=== PATIENT | female | born 1940 | race Caucasian/White ===

== ENCOUNTER → 2017-02-22 | Day surgery (SDC) | payer OTHER ==
[2017-02-14 13:57] VITALS: Ht 166.4 cm; Wt 100.9 kg
[~2017-02-22] VITALS: Ht 166.4 cm; Wt 100.9 kg
[~2017-02-22] MED LIST: ASCO10003 PO; ATOR-24 PO; BENA10TA10 PO; CYAN100020 PO; ENOX40IN SQ; HYDR25TA4 PO; LIDOCAINE HCL 2% 2 ML VIAL (20MG/ML) ONE; METO1TAB69 PO; OXYC-57 PO; PROPOFOL IV EMULSION 10 MG/ML 20 ML VIAL IV ONE; SERT100T PO; SODIUM CHLORIDE 0.9% 500ML 500 ML IV ONE; TRAZ100T29 PO; VITAMIN D PO
--- NOTE | 2017-02-22 13:09 | Endo History and Physical ---
History & Physical Date of Service: Feb 22, 2017. Chief Complaint: Referring Physician: Dr. Jessika Gifford History of Present Illness 77 yo presenting for colonscopy due to history of newly diagnosed endometrial cancer-pretreatment examination Past Surgical History Hx Cardiac Surgery: No Hx Internal Defibrillator: No Hx Pacemaker: No Hx Abdominal Surgery: Yes (SERA) Hx of Implantable Prosthesis: No Hx Post-Op Nausea and Vomiting: No Hx Cancer Surgery: No Hx Thoracic Surgery: No Hx Orthopedic: Yes (RT TKA) Hx Urinary Tract Surgery: No Family History Colon CA Social History Smoking Status: Never Smoker Hx Substance Use: No Hx Alcohol Use: No Allergies Coded Allergies: No Known Allergies (Verified , 02/14/17) Current Medications Reported Home Medications Medications Dose Route/Sig Max Daily Dose Days Date Category Dose Instructions [Vitamin D] 1 Tab PO QAM 02/14/17 Reported Vitamin B12 (Cyanocobalamin) 1,000 Mcg Tab 1 Tab PO QAM 02/14/17 Reported Vitamin C (Ascorbic Acid) 1,000 Mg Tab 1 Tab PO QAM 02/14/17 Reported Trazodone (Trazodone HCl) 100 Mg Tab 100 Mg PO HS 02/14/17 Reported Lotensin (Benazepril HCl) 10 Mg Tab 10 Mg PO QAM 02/14/17 Reported Hctz (Hydrochlorothiazide) 25 Mg Tab 25 Mg PO QAM 02/14/17 Reported Lipitor (Atorvastatin Calcium) 40 Mg Tab 40 Mg PO QAM 02/14/17 Reported Zoloft (Sertraline Hcl) 100 Mg Tab 150 Mg PO QAM 02/14/17 Reported Toprol-Xl (Metoprolol Succinate) 100 Mg Tabcr 100 Mg PO QAM 02/14/17 Reported Percocet 5MG/325MG (Oxycodone/Acetaminophen) Tab 1 Tablet PO Q6HR PRN 03/06/10 Reported NEEDED FOR PAIN. NO MORE THAN 3 TABLETS A DAY. Vital Signs Weight (Kilograms): 100.91 Height (Feet): 5 Height (Inches): 5.5 Date Time Temp Pulse Resp B/P (MAP) Pulse Ox O2 Delivery O2 Flow Rate FiO2 02/22/17 12:59 36.6 96 18 173/86 (115) 98 Room Air Physical Exam General Appearance: WD/WN, no apparent distress Respiratory/Chest: Respiratory effort: no dyspnea Auscultation: breath sounds normal Cardiovascular: Heart Auscultation: RRR, normal S1 Abdomen: Bowel Sounds: normal Inspection & Palpation: soft Assessment and Plan 77 yo presenting for colonoscopy prior to treatment of endometrial cancer
--- NOTE | 2017-02-22 13:50 | GI REPORT ---
Procedure Date: 02/22/2017 1:17 PM Procedure: Colonoscopy Indications: Screening for colorectal malignant neoplasm, and new diagnosis of endometrial cancer Medicines: General Anesthesia Complications: No immediate complications. Estimated blood loss: None. Estimated Blood Loss: Estimated blood loss: none. Procedure: Pre-Anesthesia Assessment: - Pre-Anesthesia Assessment: - Prior to the procedure, a History and Physical was performed, and patient medications, allergies and sensitivities were reviewed. The patient's tolerance of previous anesthesia was reviewed. Please see [email or web address] for complete details. - The risks and benefits of the procedure and the sedation options and risks were discussed with the patient. All questions were answered and informed consent was obtained. - Patient identification and proposed procedure were verified prior to the procedure by the physician and the nurse. The procedure was verified in the pre-procedure area in the procedure room. After obtaining informed consent, the endoscope was passed carefully and meticuously under direct vision and only advanced when the lumen was clearly identified, C02 insuflation was utilized throughout the entirity of the procedure. Throughout the procedure, the patient's blood pressure, pulse, and oxygen saturations were monitored continuously. After I obtained informed consent, the scope was passed under direct vision. Throughout the procedure, the patient's blood pressure, pulse, and oxygen saturations were monitored continuously. The scope was introduced through the anus and advanced to the terminal ileum, with identification of the appendiceal orifice and IC valve. The colonoscopy was performed without difficulty. The patient tolerated the procedure well. Findings: Three sessile polyps were found in the ascending colon. The polyps were 3 to 5 mm in size. These polyps were removed with a cold snare. Resection and retrieval were complete. A 3 mm polyp was found in the transverse colon. The polyp was sessile. The polyp was removed with a cold snare. Resection and retrieval were complete. Multiple small-mouthed diverticula were found in the sigmoid colon. The terminal ileum appeared normal. Internal hemorrhoids were found during retroflexion. The exam was otherwise without abnormality on direct and retroflexion views. Impression: - Three 3 to 5 mm polyps in the ascending colon, removed with a cold snare. Resected and retrieved. - One 3 mm polyp in the transverse colon, removed with a cold snare. Resected and retrieved. - Diverticulosis in the sigmoid colon. - The examined portion of the ileum was normal. - Internal hemorrhoids. - The examination was otherwise normal on direct and retroflexion views. Recommendation: - Discharge patient to home (with escort). - Repeat colonoscopy for surveillance based on pathology results. - Return to referring physician as previously scheduled. Bang Martines MD 02/22/2017 1:49:39 PM This report has been signed electronically. Note Initiated On: 02/22/2017 1:17 PM I attest to the content of the Intraoperative Record and orders documented therein, exceptions below
--- NOTE | 2017-02-22 13:55 | Discharge Instructions ---
Endoscopy Patient Instructions Date / Procedure(s) Performed Feb 22, 2017. Colonoscopy Allergy Information Coded Allergies: No Known Allergies (Verified , 02/14/17) Discharge Date / Findings Feb 22, 2017. Findings: - Three 3 to 5 mm polyps in the ascending colon, removed with a cold snare. Resected and retrieved. - One 3 mm polyp in the transverse colon, removed with a cold snare. Resected and retrieved. - Diverticulosis in the sigmoid colon. - The examined portion of the ileum was normal. - Internal hemorrhoids. - The examination was otherwise normal on direct and retroflexion views. Recommendation: - Discharge patient to home (with escort). - Repeat colonoscopy for surveillance based on pathology results. - Return to referring physician as previously scheduled Medication Instructions Stopped Medication(s): stopped all vitamins last Monday Provider Instructions Activity Restrictions - No exercising or heavy lifting for 24 hours. - Do not drink alcohol the day of the procedure. - Do not drive a car or operate machinery until the day after the procedure. - Do not make any important decisions or sign important papers in 24 hours after the procedure. Following Day: - Return to full activity which may include returning to work/school. Diet Start your diet with liquids and light foods (jello, soup, juice, toast). Then eat your usual diet if not nauseated. Treatment For Common After Affects For mild abdominal pain, bloating, or excessive gas: - Rest - Eat lightly - Lie on right side Follow-Up Information Follow-up with Dr. Jessika Gifford as scheduled Anesthesia Information What You Should Know You have had a procedure that required some medicine to reduce anxiety and discomfort. This treatment is called moderate sedation. After receiving the treatment, you may be sleepy, but you will be able to breathe on your own. The effects of the treatment may last for several hours. Follow these instructions along with Activity/Diet recommendations noted above: * Do NOT do anything where dizziness or clumsiness would be dangerous. * Rest quietly at home today, then you can be up and about tomorrow. * Have a responsible person stay with you the rest of today. * You may have had an I.V. today. If so, you may take the dressing off later today. Recommendations Call your doctor if: * Trouble breathing * Continuous vomiting for more than 24 hours * Temperature above 101 degrees * Severe abdominal pain or bloating * Pain not relieved by pain medicine ordered * There is increased drainage or redness from any incision * A large amount of rectal bleeding greater than 2-3 tablespoons. (If you had a polyp/s removed or have hemorrhoids, a small amount of blood - from the rectum is to be expected.) * You have any unanswered questions or concerns. IN THE EVENT OF A SERIOUS EMERGENCY, GO TO THE NEAREST EMERGENCY ROOM Your discharge instructions were prepared by provider Bang Martines. Patient Instructions Signature Page Alyce Myers Patient (or Guardian) Signature/Date: I have read and understand the instructions given to me by my caregivers. Caregiver/RN/Doctor Signature/Date: The above-named patient and/or guardian has received patient instructions on this date. + Original Patient Signature Page (only) stays with chart. Please make copy for patient.
[2017-02-22 14:00] VITALS: BP 122/74; PULSE 68; O2SAT 93
--- NOTE | 2017-02-22 14:10 | Anesthesiology Progress Note ---
Anesthesia Post Op Note Date & Time Feb 22, 2017 at 14:10 Vital Signs Pain Intensity: 0 Vital Signs Past 12 Hours Date Time Temp Pulse Resp B/P (MAP) Pulse Ox O2 Delivery O2 Flow Rate FiO2 02/22/17 14:00 68 16 122/74 (90) 93 Room Air 02/22/17 13:45 71 16 122/63 (82) 93 Room Air 02/22/17 12:59 36.6 96 18 173/86 (115) 98 Room Air Notes Mental Status: alert / awake / arousable, participated in evaluation Pt Amnestic to Procedure: Yes Nausea / Vomiting: adequately controlled Pain: adequately controlled Airway Patency, RR, SpO2: stable & adequate BP & HR: stable & adequate Hydration State: stable & adequate Anesthetic Complications: no major complications apparent
== END | disposition home or self-care (01) ==
LOC: C.GI 12:31
PROVIDERS: ATTEND Internal Medicine
DX: Z12.11 Encounter for screening for malignant neoplasm of colon (principal); D12.2 Benign neoplasm of ascending colon; D12.3 Benign neoplasm of transverse colon; K57.30 Diverticulosis of large intestine without perforation or abscess without bleeding; K64.8 Other hemorrhoids; C54.1 Malignant neoplasm of endometrium

== ENCOUNTER → 2017-08-03 | Outpatient (CLI) | payer OTHER ==
[~2017-08-03] MED LIST changes: -ENOX40IN SQ; -LIDOCAINE HCL 2% 2 ML VIAL (20MG/ML) ONE; +LOPE-5 PO; +METO100T44 PO; -METO1TAB69 PO; -PROPOFOL IV EMULSION 10 MG/ML 20 ML VIAL IV ONE; -SODIUM CHLORIDE 0.9% 500ML 500 ML IV ONE
[2017-08-03 14:53] VITALS: BP 119/73; PULSE 66; TEMP 36.9; O2SAT 91
--- NOTE | 2017-08-03 15:41 | Radiation Oncology Follow-Up ---
Radiation Oncology Follow-Up Date of Visit Aug 03, 2017. Reason For Visit Two-month follow-up in cancer survivorship care plan Radiation Completion Date External 05/19/17, 3 HDR treatments 05/31/17 Diagnosis (1) Endometrial adenocarcinoma Status: Acute Onset Date: 01/03/2017 Permanent Comment: Postmenopausal vaginal bleeding Status post endometrial biopsy 01/03/2017 Poorly differentiated endometrioid adenocarcinoma Status post total abdominal hysterectomy, bilateral salpingo-oophorectomy, and peritoneal washings on 03/01/2017 Stage pT2 [id number] FIGO grade 3 Status post PET/CT 03/29/2017 revealing no metastasis Status post completion of external beam radiation 05/19/2017 she received 4500 cGy. She also received 3 HDR treatments. These were 500 cGy each. The radiation was completed in 05/31/2017. Last Edited By: Cyn Munguia on Jun 09, 2017 13:56 History of Present Illness Ms. Myers presented with postmenopausal bleeding. The patient was referred by her primary care doctor to Dr. Duong, gynecology. Dr. Duong evaluated the patient on 01/03/2017 and recommended an endometrial biopsy. The patient did have an in office endometrial biopsy completed on 01/03/2017 which confirmed poorly differentiated carcinoma consistent with endometrial adenocarcinoma. The patient was then referred to Dr. Jeffries who recommended a total abdominal hysterectomy and bilateral salpingo-oophorectomy. The patient underwent a DELMIS/ BSO on 03/01/2017 and pathology revealed FIGO grade 3 endometrioid adenocarcinoma that measure 8.2 cm in greatest dimension with greater than 50% myometrial invasion as well as cervical stromal invasion and lower uterine segment involvement. The ovaries and fallopian tubes bilaterally were uninvolved. The margins cannot be assessed and the peritoneal fluid washings were negative. No lymph nodes were excised. The patient was staged as FIGO stage II, FIGO grade 3 endometrioid adenocarcinoma. She did have a PET/CT scan on 03/23/2017 which revealed no FDG avid disease and only several small pulmonary nodules measuring up to 5 mm that are too small to characterize and must be followed up with a repeat CT thorax. The PET/CT scan did note postsurgical changes in the pelvis most likely related to surgery. We are now seeing the patient in consultation to discuss the role of radiation therapy. Status post completion of radiation therapy with external beam treatment completed 05/19/2017. She received 4500 cGy. She received 3 HDR treatments at 500 cGy each. She completed the 2 phases of treatment on Interim History She's been doing well over the past 2 months. She denies any change in bowels or urination. She's had no vaginal discharge. She saw Dr. Jeffries last week. She was found to have a yeast infection. He prescribed pallor. She's been using this in the itching discomfort she had has resolved. He did not find any vaginal lesions or signs of recurrence. Allergies Coded Allergies: No Known Allergies (Verified , 02/14/17) Home Medications Scheduled Ascorbic Acid (Vitamin C), 1 TAB PO QAM Atorvastatin (Lipitor), 40 MG PO QAM Benazepril (Lotensin), 10 MG PO QAM Cyanocobalamin (Vitamin B12), 1 TAB PO QAM Hydrochlorothiazide (Hctz), 25 MG PO QAM Loperamide Hcl (Imodium A-D), 1 TAB PO DAILY Metoprolol Succ (Toprol Xl) (Toprol-Xl ), 100 MG PO QAM Oxycodone/Acetaminophen 5MG/325MG (Percocet 5MG/325MG), 1 TABLET PO Q6HR PRN Sertraline Hcl (Zoloft), 150 MG PO QAM Trazodone Hcl (Trazodone), 100 MG PO HS [Vitamin D], 1 TAB PO QAM Review of Systems Gastrointestinal: Symptoms: WNL, Diarrhea GI Comments: Gets diarrhea every now and then - takes immodium PRN Oral: Symptoms: No Problems Respiratory: Symptoms: WNL Urinary: Symptoms: WNL Skin: Symptoms: No Problems Other Skin Symptoms: Used hydrocortison & nystatin powder to groin/vaginal area with relief Physical Exam Vital Signs Date Time Temp Pulse Resp B/P (MAP) Pulse Ox O2 Delivery O2 Flow Rate FiO2 08/03/17 14:53 36.9 66 18 119/73 91 Fatigue: None General Appearance: no apparent distress Eyes: normal inspection, EOMI ENT: normal ENT inspection, hearing grossly normal Respiratory/Chest: lungs clear, no respiratory distress, no accessory muscle use Cardiovascular: regular rate, rhythm, no gallop, no murmur Extremities: no pedal edema Neurologic/Psychiatric: no motor/sensory deficits, alert, normal mood/affect Skin: warm/dry Pain Management Patient Reports Pain: No Pain Management Plan She denies pain therefore requires no pain management. Laboratory Laboratory Results: not applicable Pathology Pathology Results: not applicable Imaging Imaging Studies: were reviewed, and pertinent findings noted below Imaging Comments She had previously undergone CT 02/15/2017. This did reveal by basilar pulmonary nodules. Some nodules were present since 2007 suggesting a benign nature. Follow-up was recommended. Assessment & Plan Plan: Patient is also seen today by Dr. Ruvalcaba. She had recently had a pelvic examination and this was therefore deferred. We will schedule her for CTs of the chest, abdomen, and pelvis for one month. We asked her to return to our office in 6 months. Today we completed a cancer survivorship care plan. A copy the document was given to the patient. She may call our office if she has any questions or concerns in the interim. Assessment & Plan (Attending) I agree with note created by Cyn Munguia PA-C. I reviewed the patient's chart and information with her. I have examined and evaluated the patient. I reviewed relevant clinical information and answered the patient's and/or family' s questions. EXECUTIVE ASSISTANT Total Time In Follow-Up I spent 20 minutes speaking to the patient a performing examination. I spent 15 minutes reviewing information and completeness note. [place] Total Time (Attending) In Follow-Up I spent 15 minutes examining and counseling the patient. EXECUTIVE ASSISTANT Copy To Jessika Gifford M.D.; Nicholas Jeffries M.D.
== END | disposition home or self-care (01) ==
LOC: C.ONC 14:41
PROVIDERS: ATTEND Physician Assistant Medical
DX: Z08 Encounter for follow-up examination after completed treatment for malignant neoplasm (principal); Z92.3 Personal history of irradiation; Z85.89 Personal history of malignant neoplasm of other organs and systems

== ENCOUNTER → 2017-08-31 | Outpatient (CLI) | payer OTHER ==
[~2017-08-31] MED LIST changes: +OPTIRAY 320 IV PRN
--- NOTE | 2017-08-31 12:10 | DIAGNOSTIC IMAGING REPORT ---
(CHEST) THORAX WITH CT DOSE: HISTORY: Uterine carcinoma UTERINE CA TECHNIQUE: Multiaxial CT images of the chest were performed following the intravenous administration of contrast. A dose lowering technique was utilized adhering to the principles of ALARA. COMPARISON: PET scan 03/22/2017 FINDINGS: The lungs are clear. The mediastinal vascular structures are within normal limits. No mediastinal or hilar lymphadenopathy. No pleural effusion or pneumothorax. Limited views of the upper abdomen demonstrate a normal liver and spleen. Several very small micronodules at the lung bases measuring up to 4 mm. These are unchanged from the prior exam. No new or interval findings. No significant adenopathy. Axillary regions are unremarkable. Degenerative changes thoracic spine unchanged. IMPRESSION: 1. Minimal basilar micronodularity unaltered from the prior exam. 2. No evidence for new interval or progressive process. 3. No acute abnormality The above report was generated using voice recognition software. It may contain grammatical, syntax or spelling errors. Electronically signed by: Eric Lynn M.D. 08/31/2017 12:09 PM Dictated Date/Time: 08/31/2017 12:05 PM
--- NOTE | 2017-08-31 12:13 | DIAGNOSTIC IMAGING REPORT ---
CT OF THE ABDOMEN AND PELVIS WITH CONTRAST CLINICAL HISTORY: Uterine cancer. COMPARISON STUDY: CT of the abdomen and pelvis February 15, 2017 and PET/CT March 22, 2017. TECHNIQUE: Following IV administration of 100 mL of Optiray-320, axial images of the abdomen and pelvis were obtained from the lung bases to the proximal femurs. Images were reviewed in the axial, sagittal, and coronal planes. IV contrast was administered without complication. A dose lowering technique was utilized adhering to the principles of ALARA. Oral contrast was administered. CT DOSE: 2919.95 mGy.cm FINDINGS: The chest CT will be reported separately. Several small nodules within visualized portions of the lower lungs are unchanged since CT of February 15, 2017. These are likely benign. A left hepatic lobe cyst is noted. There is a cyst within the upper pole the right kidney. Mild biliary ductal dilatation is unchanged and CT of February 15, 2017 and likely related to prior cholecystectomy. The spleen, adrenal glands, pancreas and left kidney are unremarkable. There is no hydronephrosis or hydroureter. There is no evidence for a bowel obstruction. There is colonic diverticulosis without evidence for acute diverticulitis. Bladder wall thickening is eccentric by underdistention. The uterus is surgically absent as are the ovaries. No abdominal or pelvic lymphadenopathy is present. There is no abscess. There are no suspicious osseous lesions. There is mild pelvic infiltration. IMPRESSION: 1. No evidence for metastatic disease within the abdomen or pelvis. 2. Colonic diverticulosis without evidence for acute diverticulitis. 3. Mild pelvic infiltration, a nonspecific finding which may be related to radiotherapy or previous surgery. No fluid collection. 4. Moderate nonspecific bladder wall thickening which is accentuated by underdistention. Electronically signed by: Chapo Kaur M.D. 08/31/2017 12:12 PM Dictated Date/Time: 08/31/2017 12:05 PM
== END | disposition home or self-care (01) ==
LOC: C.CTS 11:36
PROVIDERS: ATTEND Physician Assistant Medical
DX: C55 Malignant neoplasm of uterus, part unspecified (principal); K57.90 Diverticulosis of intestine, part unspecified, without perforation or abscess without bleeding

== ENCOUNTER 2020-01-08 15:12 | Inpatient (IN) ==
--- NOTE | 2020-01-08 15:29 | Emergency Department Note ---
Impression & Plan UTI (urinary tract infection), Weakness, Hypokalemia ED Provider Note NAME: LIZETH GRAVES AGE: 79 SEX: F : 1940 ARRIVES VIA: Ambulance INFORMANT: Patient ED PROVIDER(S): Rey Rojas DO CHIEF COMPLAINT: weakness HPI: Patient is an 79-year-old female with past medical history of CKD, hypertension, hyperlipidemia SVT, depression, prediabetes who presents the ER for weakness. She notes that she was at home and has been feeling weak and tired since this past Monday. She been struggling to get around. She notes her left lower extremity is significantly weaker than what it has been. She denies any back pain. No headache, change in vision, chest pain, shortness of breath, nausea vomiting or diarrhea. No dysuria urgency or frequency. No other exacerbating or remitting factors. She notes she does not have any pain in her leg when she tries to move it it just feels weak. ROS: See above HPI for pertinent positives & negatives. A total of 10 systems reviewed and were otherwise negative. PAST MEDICAL HISTORY:See Below PAST SURGICAL HISTORY:See Below FAMILY HISTORY:See Below SOCIAL HISTORY:See Below HOME MEDICATIONS:See Below ALLERGIES:See Below VITALS:See Below PHYSICAL EXAMINATION: GENERAL: Sitting up in bed, alert, ill-appearing, disheveled, EYE EXAM: normal conjunctiva. PERRL and EOM's grossly intact. OROPHARYNX: no exudate, no erythema, lips, buccal mucosa, and tongue normal and mucous membranes are moist NECK: supple, no nuchal rigidity, no adenopathy, non-tender LUNGS: Clear to auscultation. Normal chest wall mechanics HEART: no murmurs, S1 normal and S2 normal ABDOMEN: abdomen soft, non-tender, normo-active bowel sounds, no masses, no rebound or guarding. BACK: Back is symmetrical on inspection and there is no deformity, no midline tenderness, no CVA tenderness. SKIN: no rashes and no bruising UPPER EXTREMITIES: upper extremities are grossly normal. LOWER EXTREMITIES: No pitting edema. Flexion-extension of the left hip and knee is weaker than the right. EHL intact bilaterally. NEURO EXAM: Normal sensorium, cranial nerves II-XII grossly intact, normal speech, no gross weakness of arms, lower extremity is slightly weaker than right with flexion of the hip. MEDICAL DECISION MAKING: Patient is a 79-year-old female who presents the ER for weakness. She has that this has been going on since this past Monday. She also notes that her left lower extremity has been feeling weaker since then as well. She notes that it always is slightly weaker but may be a little worse since Monday. IV was established blood work was obtained. Labs show a leukocytosis of 12,000. Mild anemia 10. BMP with a hypokalemia 2.7. This was repleted. Creatinine 1.2. Magnesium low at 1.4. LFTs bilirubin was unremarkable. Troponin was detectable but not positive. UA does suggest UTI with white cells, leukocytes and bacteria although contaminated with epithelial cells. Patient was given IV fluids and IV Rocephin. Updated bedside. CT head was negative. Do favor that the lower extremity secondary to the UTI although cannot be certain and consequently did order the CT head which as discussed previously was negative. Favor that this is less likely a stroke although certainly possible. Discussed with the hospitalist for admission. Triage Nursing notes reviewed. Prior medical records reviewed Vital Signs: reviewed and remarkable for hypertensive Differential diagnosis: Infection, dehydration, metabolic abnormality, hypo/hyperglycemia, electrolyte disturbance, anemia, hypoxia, cardiac sources, intracerebral event, toxicologic, neurologic, as well as other pathologies. ER treatment provided: See below Diagnostics interpreted by me: ECG: Sinus rhythm rate 75 Left axis No PVCs Normal QTC Cardiac Monitoring: An order was placed for continuous cardiac monitoring. The monitor shows a rate of 83 with sinus rhythm. Laboratory studies: As stated above and show below. Imaging studies: CT head shows no acute pathology. Chest x-ray was unremarkable Consultation(s): Discussed with hospitalist for admission. ED COURSE: Procedures: none Critical Care: None Past Med/Surg History Medical History (Updated 01/08/20 @ 20:18 by Rey Rojas DO) Chronic back pain CKD (chronic kidney disease), stage III Depression HLD (hyperlipidemia) HTN (hypertension) (Chronic) Macular degeneration Surgical History (Updated 01/08/20 @ 19:48 by Cheryl Pabon PA-C) History of cholecystectomy History of hysterectomy History of total knee arthroplasty Family History (Updated 01/08/20 @ 19:49 by Cheryl Pabon PA-C) Father Coronary heart disease Mother Coronary heart disease Other Cancer Social History (Updated 01/08/20 @ 19:49 by Cheryl aPbon PA-C) Smoking Status: Never smoker Hx Alcohol Use: No Hx Substance Use: No Preferred Language: Mohawk Communication Ability: Effective Beliefs That Will Affect Care: None Current Living Situation: Alone Feels Safe at Home: Yes Allergies Allergies Allergy/AdvReac Type Severity Reaction Status Date / Time No Known Allergies Allergy Verified 01/08/20 17:02 Home Meds Home Medications Medication Instructions Recorded Confirmed ascorbic acid (vitamin C) [Vitamin 1 g PO DAILY 01/08/20 01/08/20 C] atorvastatin [Lipitor] 40 mg PO DAILY 01/08/20 01/08/20 benazepril [Lotensin] 10 mg PO DAILY 01/08/20 01/08/20 cholecalciferol (vitamin D3) 25 mcg PO DAILY 01/08/20 01/08/20 [Vitamin D3] hydrochlorothiazide 25 mg PO DAILY 01/08/20 01/08/20 magnesium oxide 400 mg PO DAILY 01/08/20 01/08/20 metoprolol succinate [Toprol XL] 100 mg PO DAILY 01/08/20 01/08/20 oxycodone-acetaminophen [Percocet] 1 tab PO Q6 PRN 01/08/20 01/08/20 sertraline [Zoloft] 150 mg PO DAILY 01/08/20 01/08/20 trazodone 100 mg PO HS PRN 01/08/20 01/08/20 Results & Data (ED) Vital Signs Vital Signs - 24 hr 01/08/20 15:15 01/08/20 15:30 01/08/20 16:00 Temperature 36.7 C Temperature Source Oral Pulse Rate 75 79 Respiratory Rate 20 20 19 Respiratory Effort / Characteristics Spontaneous Blood Pressure 154/70 H 141/64 H 150/87 H Blood Pressure Mean 98 91 91 Blood Pressure Position Sitting Pulse Oximetry 94 Oxygen Delivery Method Room Air Sepsis Recent Fever Within 48 Hours No Sepsis New/Unexplained Change in Mental Status No Sepsis Action Taken by Nursing No Action Required 01/08/20 16:30 01/08/20 16:32 Temperature Temperature Source Pulse Rate 83 85 Respiratory Rate 24 15 Respiratory Effort / Characteristics Blood Pressure 166/91 H Blood Pressure Mean 107 Blood Pressure Position Pulse Oximetry Oxygen Delivery Method Sepsis Recent Fever Within 48 Hours Sepsis New/Unexplained Change in Mental Status Sepsis Action Taken by Nursing Laboratory Data Result diagrams: 01/08/20 15:35 01/08/20 15:35 Lab Results 01/08/20 01/08/20 01/08/20 Range/Units 15:35 15:35 16:30 WBC 12.35 H (4.8-10.8) K/uL RBC 3.65 L (4.2-5.4) M/uL Hgb 10.9 L (12.0-16.0) g/dL Hct 33.1 L (37-47) % MCV 90.7 (80-100) fL MCH 29.9 (25-34) pg MCHC 32.9 (32-36) g/dL RDW Std Deviation 49.7 H (36.4-46.3) fL RDW Coeff of Kiara 14.7 H (11.5-14.5) % Plt Count 162 (130-400) K/uL MPV 10.1 (7.4-10.4) fL Immature Gran % (Auto) 0.3 % Neut % (Auto) 87.3 % Lymph % (Auto) 4.4 % [place] % (Auto) 7.8 % Eos % (Auto) 0.2 % Baso % (Auto) 0.0 % Neut # (Auto) 10.78 H (1.4-6.5) K/uL Lymph # (Auto) 0.54 L (1.2-3.4) K/uL [place] # (Auto) 0.96 H (0.11-0.59) K/uL Eos # (Auto) 0.03 (0-0.5) K/uL Baso # (Auto) 0.00 (0-0.2) K/uL Immature Gran # (Auto) 0.04 H (0.00-0.02) K/uL Sodium 135 L (136-145) mmol/L Potassium 2.7 L (3.5-5.1) mmol/L Chloride 100 (98-107) mmol/L Carbon Dioxide 28 (21-32) mmol/L Anion Gap 7.0 (3-11) BUN 26 H (7-18) mg/dl Creatinine 1.22 H (0.6-1.2) mg/dl Est Cr Clr Drug Dosing 43.2 ml/min Est GFR ( Amer) 48.1 Est GFR (Non-Af Amer) 41.5 BUN/Creatinine Ratio 21.6 H (10-20) Glucose 118 H (70-99) mg/dl Calcium 8.6 (8.5-10.1) mg/dl Magnesium 1.4 L (1.8-2.4) mg/dl Total Bilirubin 0.6 (0.2-1) mg/dl AST 50 H (15-37) U/L ALT 20 (12-78) U/L Alkaline Phosphatase 86 (45-117) U/L Troponin I 0.043 (0-0.045) ng/ml Total Protein 6.9 (6.4-8.2) gm/dl Albumin 2.2 L (3.4-5.0) gm/dl Globulin 4.7 H (2.5-4.0) gm/dl Albumin/Globulin Ratio 0.5 L (0.9-2) TSH 1.830 (0.300-4.500) uIu/ml Specimen Hemolysis Urine Color Yellow Urine Appearance Cloudy A (Clear) Urine pH 6.0 (4.5-7.5) Ur Specific [place] 1.015 (1.000-1.030) Urine Protein 1+ H (Negative) Urine Glucose (UA) Negative (Negative) Urine Ketones Negative (Negative) Urine Blood 3+ H (Negative) Urine Nitrite Negative (Negative) Urine Bilirubin Negative (Negative) Urine Urobilinogen Negative (Negative) Ur Leukocyte Esterase 3+ H (Negative) Urine WBC (Auto) >30 H (0-5) /hpf Urine RBC (Auto) 5-10 H (0-4) /hpf U Hyaline Cast (Auto) 0 (0-5) /lpf U Epithel Cells (Auto) 10-20 H (0-5) /lpf Urine Bacteria (Auto) 3+ H (Negative) Administered Medications Discontinued Medications Ceftriaxone Sodium (Rocephin) 1,000 mg in 50 mls @ 100 mls/hr IV NOW STA Stop: 01/08/20 18:18 Last Infusion: 01/08/20 19:20 Dose: 0 mls/hr Documented by: [id number] Admin: 01/08/20 18:41 Dose: 100 mls/hr Documented by: [id number] Potassium Chloride (Klor-Con M20) 40 meq PO NOW STA Stop: 01/08/20 17:30 Last Admin: 01/08/20 18:41 Dose: 40 meq Documented by: [id number] Discharge Plan Visit Data *Final* Discharge Date/Time: 01/08/20 19:32 Chief Complaint: Weakness Stated Complaint: WEAKNESS ED Provider: Rey Rojas Discharge Problem: UTI (urinary tract infection), Weakness, Hypokalemia Patient Disposition: Admitted As Inpatient Discharge Instructions Interventions: ED Discharge Assessment Last Done: 01/08/20 19:32 Discharge Problem: UTI (urinary tract infection) Qualifiers: Urinary tract infection type: acute cystitis Hematuria presence: without hematuria Qualified Code(s): N30.00 - Acute cystitis without hematuria
[2020-01-08 15:46] LABS: Eosinophils # (auto) 0.03 K/uL (0-0.5); Eosinophils % (auto) 0.2 %; Hematocrit (blood only) 33.1 % (37-47); Hemoglobin 10.9 g/dL (12.0-16.0); Immature Granulocytes # (auto) 0.04 K/uL (0.00-0.02); Immature Granulocytes % (auto) 0.3 %; Lymphocytes # (auto) 0.54 K/uL (1.2-3.4); Lymphocytes % (auto) 4.4 %; Mean Corpuscular Hemoglobin 29.9 pg (25-34); Mean Corpuscular Hgb Conc 32.9 g/dL (32-36); Mean Corpuscular Volume 90.7 fL (80-100); Mean Platelet Volume 10.1 fL (7.4-10.4); Monocytes # (auto) 0.96 K/uL (0.11-0.59); Monocytes % (auto) 7.8 %; Neutrophils # (auto) 10.78 K/uL (1.4-6.5); Neutrophils % (auto) 87.3 %; Platelet Count 162 K/uL (130-400); RDW Coefficient of Variation 14.7 % (11.5-14.5); RDW Standard Deviation 49.7 fL (36.4-46.3); Red Blood Count 3.65 M/uL (4.2-5.4); White Blood Count 12.35 K/uL (4.8-10.8)
--- NOTE | 2020-01-08 16:00 | XRay Report ---
XR chest 1V portable HISTORY: weakness COMPARISON: Chest CT 08/31/2017. FINDINGS: The cardiac silhouette remains mildly enlarged. The lungs are clear. No pleural effusions. No pneumothorax. No rib fractures. IMPRESSION: Stable mild cardiomegaly. Otherwise, no acute process within the chest. ACT 112: Negative or not required by law. Electronically signed by: Stuart Bose M.D. 01/08/2020 3:59 PM
[2020-01-08 16:27] LABS: Albumin Globulin Ratio 0.5 (0.9-2); Albumin Level 2.2 gm/dl (3.4-5.0); BUN Creatinine Ratio 21.6 (10-20); Bilirubin,Total 0.6 mg/dl (0.2-1); Calcium 8.6 mg/dl (8.5-10.1); Creatinine Clr Calc Pharmacy 43.2 ml/min; Est GFR (African American) 48.1; Est GFR (Non-African American) 41.5; Globulin 4.7 gm/dl (2.5-4.0); Potassium 2.7 mmol/L (3.5-5.1); Thyroid Stimulating Hormone 1.83 uIu/ml (0.300-4.500); Total Protein 6.9 gm/dl (6.4-8.2); Troponin I 0.043 ng/ml (0-0.045)
--- NOTE | 2020-01-08 16:52 | CT Scan Report ---
HEAD CT NONCONTRAST CT DOSE: 614.27 mGy.cm HISTORY: Headache. TECHNIQUE: Multiaxial CT images of the head were performed without the use of intravenous contrast. A utomated exposure control was utilized for this study. A dose lowering technique was utilized adheri ng to the principles of ALARA. Comparison: None. Findings: The paranasal sinuses and mastoid air cells are clear. The calvarium and skull base are int act. There is no mass, hematoma, midline shift, acute infarct. White matter hypodensity is nonspecifi c but suggestive of microvascular ischemic change. The ventricles and sulci demonstrate mild age-rela ravi involutional changes. Questionable increased density within the left anterior frontal lobe on mayra ge 24 is likely artifact. Impression: No acute intracranial abnormality. Atrophy and microvascular ischemic changes. ACT 112: Negative or not required by law. Electronically signed by: Stuart Bose M.D. 01/08/2020 4:50 PM
[2020-01-08 17:03] LABS: Appearance Urine Cloudy (Clear); Bilirubin Urine Negative (Negative); Blood Urine 3+ (Negative); Color Urine Yellow; Glucose Urine UA Negative (Negative); Ketones Urine Negative (Negative); Leukocyte Esterase Urine 3+ (Negative); Nitrite Urine Negative (Negative); Protein Urine 1+ (Negative); Specific Gravity Urine 1.015 (1.000-1.030); Urobilinogen Urine Negative (Negative)
[2020-01-08] MEDS ORDERED: POTASSIUM CHLORIDE 20 MEQ TABCR PO STA (17:29)
[2020-01-08 17:31] LABS: Bacteria Urine Automated 3+ (Negative); Cast Urine Automated 0 /lpf (0-5); WBC Urine Automated >30 /hpf (0-5)
[2020-01-08] MEDS ORDERED: cefTRIAXone SODIUM 1,000 MG/50 ML BAG IV STA (17:49)
[2020-01-08] MEDS ORDERED: ONDANSETRON INJ 2 MG/ML 2 ML VIAL IV PRN (18:19)
[2020-01-08] MEDS ORDERED: LABETALOL HCL IV 5 MG/ML 20ML IV PRN (18:31)
[2020-01-08 18:36] LABS: Magnesium 1.4 mg/dl (1.8-2.4)
--- NOTE | 2020-01-08 18:43 | History & Physical Report ---
Date of Service January 08, 2020 Assessment & Plan (1) Weakness: Pt is 79 y/o F with PMH HTN, HLD, CKD III, depression presented to ER with c/o generalized weakness for approx 4 days. C/O generalized weakness, worse to bilateral legs. Uses walker to ambulate but having increased difficulty ambu lating past several days. last fall one month ago In ER pt afebrile, BP: 157/70, P: 75, R: 20, Pulse ox 94% on RA CT Head: no acute changes. CXR: No acute infiltrate Weakness probable secondary to UTI, electrolyte abnormality as per below -Fall precautions -Treatment of UTI, electrolyte abnormalities as below -PT/OT -CBC, BMP in am (2) UTI (urinary tract infection): WBC: 12, UA: 3+ leuk est, >30 WBC, 5-10 RBC, 10-20 epithel, 3+bacteria -In ER given Rocephin -Will continue Rocephin -Gentle IVF -Urine culture pending (3) Hypokalemia: K: 2.7 Pt with several episodes of diarrhea and poor oral intake past couple of days -In ER given KCl 40mg po -NSS +KCl at 100ml/hr -Repeat BMP tonight and in AM (4) Hypomagnesemia: Magnesium: 1.4 -Magnesium 2GM IV -Repeat magnesium level in am (5) Diarrhea: Reported 2 episodes diarrhea yesterday and today. No vomiting or abdominal pain. No fever -Monitor and if recurrent diarrhea consider stool studies (6) CKD (chronic kidney disease), stage III: Cr: 1.22. Baseline Cr: 1.2 -Avoid nephrotoxic agents -Monitor renal functions (7) HTN (hypertension): BP up to 166/91 in ER -Hold benazepril and HCTZ at this time -Continue metoprolol -Labetalol prn (8) HLD (hyperlipidemia): -Continue atorvastatin (9) Depression: -Continue sertraline, trazodone DVT Prophylaxis -Heparin SQ DNR/DNI as per discussion with pt Follows with Dr Gifford for routine care Pt was seen and care coordinated with Dr Veliz. See addendum History of Present Illness Chief Complaint: Weakness Primary Care Provider: Jessika Gifford MD Pt is 79 y/o F with PMH HTN, HLD, CKD III, depression presented to ER with c/o weakness for approx 4 days. Pt states just finished PT and was doing much better until past 4 days. C/O generalized weakness, worse to bilateral legs. Uses walker to ambulate but having increased difficulty ambulating past several days. H/O fall one month ago but denies any recurrent falls since. Having some nausea without vomiting the past several days. States yesterday had 2 episodes of diarrhea and 2 episodes today. Denies hematochezia or melena. Decreased appetite and hasn't been eating much. Usually drinks four to five 16 ounce bottles of water daily, however today didn't have anything to drink. Feels cold. Denies fevers. Denies abdominal pain. 3 days ago had MILLER. Denies vision changes, paresthesias. Denies any known ill contacts. Has been staying at home but home PT was coming in. Denies diaphoresis, dizziness, syncope, vision changes, neck pain, CP, SOB, orthopnea, palpitations, cough, sore throat, choking, otalgia, rhinorrhea, abdominal pain, paresthesias, extremity edema, rashes, dysuria, hematuria, urinary frequency or urgency. Allergies Allergy/AdvReac Type Severity Reaction Status Date / Time No Known Allergies Allergy Verified 01/08/20 17:02 Home Medications Home Medications Medication Instructions Recorded Confirmed Type ascorbic acid (vitamin C) [Vitamin 1 g PO DAILY 01/08/20 01/08/20 History C] atorvastatin [Lipitor] 40 mg PO DAILY 01/08/20 01/08/20 History benazepril [Lotensin] 10 mg PO DAILY 01/08/20 01/08/20 History cholecalciferol (vitamin D3) 25 mcg PO DAILY 01/08/20 01/08/20 History [Vitamin D3] hydrochlorothiazide 25 mg PO DAILY 01/08/20 01/08/20 History magnesium oxide 400 mg PO DAILY 01/08/20 01/08/20 History metoprolol succinate [Toprol XL] 100 mg PO DAILY 01/08/20 01/08/20 History oxycodone-acetaminophen [Percocet] 1 tab PO Q6 PRN 01/08/20 01/08/20 History sertraline [Zoloft] 150 mg PO DAILY 01/08/20 01/08/20 History trazodone 100 mg PO HS PRN 01/08/20 01/08/20 History Past Med/Surg History Medical History (Updated 01/08/20 @ 20:18 by Rey Rojas DO) Chronic back pain CKD (chronic kidney disease), stage III Depression HLD (hyperlipidemia) HTN (hypertension) (Chronic) Macular degeneration Surgical History (Updated 01/08/20 @ 19:48 by Cheryl Pabon PA-C) History of cholecystectomy History of hysterectomy History of total knee arthroplasty Family History (Updated 01/08/20 @ 19:49 by Cheryl Pabon PA-C) Father Coronary heart disease Mother Coronary heart disease Other Cancer Social History (Updated 01/08/20 @ 19:49 by Cheryl Pabon PA-C) Smoking Status: Never smoker Hx Alcohol Use: No Hx Substance Use: No Preferred Language: Bermudian Communication Ability: Effective Beliefs That Will Affect Care: None marital status: Unknown Current Living Situation: Alone Feels Safe at Home: Yes Review of Systems Review of Systems: All systems reviewed & are unremarkable except as noted in HPI & below Physical Exam Physical Exam: General: no distress, obese elderly female Head: normocephalic, atraumatic Eyes: PERRL, EOM's intact, conjunctiva non-injected, anicteric ENT: normal inspection external ears, nose, mucous membranes dry Neck: supple, trachea midline Lungs: clear, no respiratory distress, no wheezing/rhonchi/rales CV: RRR, no murmur, no pretibial edema Abd: normal BS, soft, protuberant, non-tender Ext: no cyanosis, no calf tenderness Neuro: A&O to person, place, month, year, was initially unsure of day of week, no focal deficits noted, normal affect Skin: warm, dry Results & Data Results & Data ([facility]) Vital Signs (Past 12 Hours) Vital Signs Temp Pulse Resp BP Pulse Ox 01/08/20 16:32 85 15 01/08/20 16:30 83 24 166/91 H 01/08/20 16:00 19 150/87 H 01/08/20 15:30 79 20 141/64 H 01/08/20 15:15 36.7 C 75 20 154/70 H 94 Laboratory Results Short CBC 01/08/20 Range/Units 15:35 WBC 12.35 H (4.8-10.8) K/uL Hgb 10.9 L (12.0-16.0) g/dL Hct 33.1 L (37-47) % Plt Count 162 (130-400) K/uL BMP 01/08/20 15:35 Sodium 135 L Potassium 2.7 L Chloride 100 Carbon Dioxide 28 BUN 26 H Creatinine 1.22 H Glucose 118 H Calcium 8.6 Cardiac Enzymes 01/08/20 Range/Units 15:35 Troponin I 0.043 (0-0.045) ng/ml Liver Function 01/08/20 Range/Units 15:35 Total Bilirubin 0.6 (0.2-1) mg/dl AST 50 H (15-37) U/L ALT 20 (12-78) U/L Alkaline Phosphatase 86 (45-117) U/L Albumin 2.2 L (3.4-5.0) gm/dl Urine 01/08/20 Range/Units 16:30 Urine Color Yellow Urine Appearance Cloudy A (Clear) Urine pH 6.0 (4.5-7.5) Ur Specific [place] 1.015 (1.000-1.030) Urine Protein 1+ H (Negative) Urine Glucose (UA) Negative (Negative) Diagnostic Findings CT HEAD: Impression: No acute intracranial abnormality. Atrophy and microvascular ischemic changes. CXR: IMPRESSION: Stable mild cardiomegaly. Otherwise, no acute process within the chest. Code Status & VTE Plan VTE Prophylaxis Plan VTE Prophylaxis will be ordered: Yes Supervising Physician Co-Signing Physician Notes ATTENDING ADDENDUM : pt seen and examined , labs and images reviewed 79 yo F admitted with generalized weakness , ongoing diarrhea noted to be profoundly hypokalemic WILBER with hyponatremia ordered IV fluids , potassium replacement ordered follow mg level Nephrology consulted Diarrhea : check stool for c diff possible UTI : IV rocephin follow urine culture Nisa Veliz MD
[2020-01-08] MEDS: HEPARIN SOD 5,000 UNIT/0.5 ML VIAL SQ SCH (20:51)
[2020-01-08] MEDS: NSS + 20MEQ KCL 20 MEQ/1,000 ML BAG IV SCH (20:51)
[2020-01-08] MEDS: MAGNESIUM SULFATE / D5W 1 GM/100 ML BAG IV SCH ×2 (20:51→22:07)
[2020-01-08] MEDS: TRAZODONE HCL 100 MG TAB PO PRN (21:38)
[2020-01-08] MEDS: OXYCODONE/ACETAMINOPHEN 5mg/325mg TAB PO PRN (21:38)
[2020-01-09 00:58] LABS: BUN Creatinine Ratio 20.8 (10-20); Calcium 8.1 mg/dl (8.5-10.1); Creatinine Clr Calc Pharmacy 45.6 ml/min; Est GFR (African American) 52.8; Est GFR (Non-African American) 45.5; Potassium 2.6 mmol/L (3.5-5.1)
[2020-01-09] MEDS ORDERED: POTASSIUM CHLORIDE 20 MEQ/15 ML UDC PO STA (01:16)
[2020-01-09] MEDS: POTASSIUM CHLORIDE / WTR 10 MEQ/100 ML PLCT IV SCH ×2 (01:59→03:26)
[2020-01-09] MEDS: ACETAMINOPHEN 325 MG TAB PO PRN (02:44)
[2020-01-09] MEDS: HEPARIN SOD 5,000 UNIT/0.5 ML VIAL SQ SCH ×3 (06:10→21:13)
[2020-01-09 07:12] LABS: Hematocrit (blood only) 32.5 % (37-47); Hemoglobin 10.5 g/dL (12.0-16.0); Mean Corpuscular Hemoglobin 29.5 pg (25-34); Mean Corpuscular Hgb Conc 32.3 g/dL (32-36); Mean Corpuscular Volume 91.3 fL (80-100); Mean Platelet Volume 9.8 fL (7.4-10.4); Platelet Count 167 K/uL (130-400); RDW Coefficient of Variation 14.8 % (11.5-14.5); RDW Standard Deviation 50.3 fL (36.4-46.3); Red Blood Count 3.56 M/uL (4.2-5.4); White Blood Count 8.77 K/uL (4.8-10.8)
[2020-01-09 07:42] LABS: Calcium 8.6 mg/dl (8.5-10.1); Creatinine Clr Calc Pharmacy 46.4 ml/min; Est GFR (African American) 53.4; Magnesium 1.9 mg/dl (1.8-2.4); Potassium 3.2 mmol/L (3.5-5.1)
[2020-01-09] MEDS ORDERED: POTASSIUM CHLORIDE 20 MEQ TABCR PO ONE (08:45)
[2020-01-09] MEDS: NSS + 20MEQ KCL 20 MEQ/1,000 ML BAG IV SCH (08:57)
[2020-01-09] MEDS: METOPROLOL SUCC 50MG EXT REL TAB PO SCH (08:58)
[2020-01-09] MEDS: SERTRALINE HCL 50 MG TABLET PO SCH (08:58)
[2020-01-09] MEDS: ATORVASTATIN 40 MG TAB PO SCH (08:59)
[2020-01-09] MEDS: CHOLECALCIFEROL 1,000 UNITS 25 MCG TAB PO SCH (08:59)
[2020-01-09] MEDS: ASCORBIC ACID 500 MG TAB PO SCH (08:59)
[2020-01-09] MEDS ORDERED: MAGNESIUM OXIDE 400 MG TAB PO SCH (09:00)
--- NOTE | 2020-01-09 10:58 | Nephrology Consultation ---
Date of Consultation January 09, 2020 Assessment & Plan (1) Hypokalemia: Patient with hypokalemia likely due to GI losses in setting of diarrhea. Admission potassium was 2.7 which has improved to 3.2 this morning. Patient is still having diarrhea and therefore anticipated continuing potassium losses. -Continue with IV fluids and bridged with potassium chloride. -Repeat a potassium around 3 PM today. (2) Hypomagnesemia: Likely due to GI losses. Admission magnesium was 1.4. Magnesium is better today at 1.9 after IV supplements. -We will hold p.o. magnesium oxide due to diarrhea. Continue IV supplements as needed. (3) CKD (chronic kidney disease), stage III: Patient with CKD stage III and baseline creatinine of 1.2. Renal function is at baseline. Avoid contrast unless lifesaving. Will monitor renal function with daily BMP (4) HTN (hypertension): Blood pressure is on the high side today due to IV fluids and holding antihypertensives. We will hold antihypertensives today due to ongoing diarrhea. We will start antihypertensives tomorrow if blood pressure remains high History of Present Illness Reason for Consultation: Electrolyte imbalance Requesting Physician: Nisa Veliz MD Attending Physician: Nisa Veliz MD History of Present Illness This is 79-year-old female with history of hypertension, CKD stage III with baseline creatinine of 1.2, depression who was admitted on 01/08/2020 with diarrhea for 4 days. She has been having about 4-5 bowel movements daily. No vomiting and no abdominal pain. Diarrhea is watery and nonbloody. On admission she was found to have a potassium of 2.7. Magnesium was 1.4. She received several rounds of potassium chloride supplementation and she is on normal saline enriched with potassium chloride. Her potassium is better this morning at 3.2. She is still having diarrhea this morning. Creatinine is slightly better at 1.1. Allergies Allergy/AdvReac Type Severity Reaction Status Date / Time No Known Allergies Allergy Verified 01/08/20 17:02 Home Medications Home Medications Medication Instructions Recorded Confirmed Type ascorbic acid (vitamin C) [Vitamin 1 g PO DAILY 01/08/20 01/08/20 History C] atorvastatin [Lipitor] 40 mg PO DAILY 01/08/20 01/08/20 History benazepril [Lotensin] 10 mg PO DAILY 01/08/20 01/08/20 History cholecalciferol (vitamin D3) 25 mcg PO DAILY 01/08/20 01/08/20 History [Vitamin D3] hydrochlorothiazide 25 mg PO DAILY 01/08/20 01/08/20 History magnesium oxide 400 mg PO DAILY 01/08/20 01/08/20 History metoprolol succinate [Toprol XL] 100 mg PO DAILY 01/08/20 01/08/20 History oxycodone-acetaminophen [Percocet] 1 tab PO Q6 PRN 01/08/20 01/08/20 History sertraline [Zoloft] 150 mg PO DAILY 01/08/20 01/08/20 History trazodone 100 mg PO HS PRN 01/08/20 01/08/20 History Patient History Medical History (Updated 01/08/20 @ 20:18 by Rey Rojas DO) Chronic back pain CKD (chronic kidney disease), stage III Depression HLD (hyperlipidemia) HTN (hypertension) (Chronic) Macular degeneration Surgical History (Updated 01/08/20 @ 19:48 by Cheryl Pabon PA-C) History of cholecystectomy History of hysterectomy History of total knee arthroplasty Family History (Updated 01/08/20 @ 19:49 by Cheryl Pabon PA-C) Father Coronary heart disease Mother Coronary heart disease Other Cancer Social History (Updated 01/08/20 @ 19:49 by Cheryl Pabon PA-C) Smoking Status: Never smoker Hx Alcohol Use: No Hx Substance Use: No Preferred Language: Cameroonian Communication Ability: Effective Beliefs That Will Affect Care: None Current Living Situation: Alone Feels Safe at Home: Yes Review of Systems Review of Systems: All systems reviewed & are unremarkable except as noted in HPI & below Physical Exam Physical Exam: General exam: Appears comfortable, no acute distress HEENT: Pupils are equal and reactive to light Neck: No JVD, neck is supple trachea is midline Respiratory system: Clear breath sounds bilaterally. Gastrointestinal: Abdomen is soft, non distended, non tender, bowel sounds are present CVS: Regular rate and rhythm. No murmurs, rubs or gallops Musculoskeletal: No joint or muscle tenderness Extremities: Non tender, no edema, peripheral pulses are present Neuro: Oriented, no tremors, no focal neurological deficits Skin: No rashes Results & Data Vital Signs (Past 12 Hours) Vital Signs Temp Pulse Pulse Resp BP BP Pulse Ox 01/09/20 08:40 36.7 C 83 17 171/79 H 91 01/09/20 03:36 36.6 C 80 20 154/80 H 91 01/09/20 00:00 79 01/08/20 23:09 36.9 C 76 18 126/67 92 Laboratory Results 01/09/20 06:56 01/08/20 01/08/20 01/09/20 15:35 15:35 06:56 WBC 12.35 H 8.77 RBC 3.65 L 3.56 L MCV 90.7 91.3 MCH 29.9 29.5 MCHC 32.9 32.3 RDW Std Deviation 49.7 H 50.3 H RDW Coeff of Kiara 14.7 H 14.8 H Plt Count 162 167 MPV 10.1 9.8 Albumin 2.2 L
[2020-01-09] MEDS: cefTRIAXone SODIUM 2,000 MG in DEXTROSE 5% 50 ML IV SCH (17:29)
--- NOTE | 2020-01-09 17:36 | Communication Note ---
Date of Service: January 09, 2020 Spoke with Pt's Daughter Rosa /[phone] daughter was concern for possible Covid 19 with pt's ongoing GI symptoms pt has home health aid and nursing coming her other sister who travelled from out of state also involved to care for the patient COVID 19 test ordered DNR/DNI DISPOSITION ; lives at home was just discharged from home PT admitted with significant deconditioning , weakness will need PT/OT eval prior to dc PHYSICAL EXAM : GEN : in resp distress HEENT : non icteric sclera HEART : regular S1/2 LUNGS; bibasilar crackles ABDOMEN : soft , non tender EXTREMITY; no edema or rash NEURO : no focal deficit PSYCH : AAO X3 -Anxious Acute hypoxemic resp failure : pt developed shortness of breath , Hypoxia requiring 4 L 02 ( not on home 02 ) coarse rales noted on lung auscultation pt noted to be vol overload ~2.5 L received IV fluids and multiple IV K rider ordered to DC IVF and IV K Lasix 40 mg IV stat ABG and chest xray Duo neb will consider Bipap if ABG shows significant hypoxia , family noticed significant wt loss -20 lb /in 5 weeks , with very poor appetite hx of uterine ca ( follows with [facility] in [place] ) , very concerned about recurrence of malignancy Had recent CT abdomen/pelvis done at [facility] on 12/28/19 -was unremarkable will add the copy of CT scan to [facility] ordered for Nutrition consult may need screening colonoscopy -which can be done as out patient Recurrent UTI : hx of uterine ca s/p pelvic radiation chronic urinary incontinence had multiple UTI ( 4 episodes since Jun 2019) hard to assess post void bladder residue as pt is incontinent Urology consult requested Urine culture : E coli on Rocephin ABx will be adjusted once sensitivity available DIARRHEA : stool c diff negative COVID 19 test ordered prn imodium LOW MG /LOW k ; due to GI loss corrected monitor lytes with ongoing GI loss add schedule PO K supplement WILBER on CKD stage 3 : due to GI loss with diarrhea /poor PO intake -leading to dehydration resolved with IV fluid appreciate input from Nephrology will cont to hold HCTZ ACEI /benazepril 10 mg will be resumed tomorrow if renal function stays stable
[2020-01-09] MEDS ORDERED: ALBUT/IPRATROP 3MG/0.5MG NEB 3 ML VIAL NEB PRN (17:37)
[2020-01-09] MEDS ORDERED: FUROSEMIDE 40 MG in SYRINGE 0 ML IV ONE (18:30)
[2020-01-09 18:50] LABS: Base Excess ABG -1.1 mEq/L (-9-1.8); HCO3 ABG 23 mmol/L (19-24); Oxygen Saturation ABG 97.3 % (90-95); PCO2 ABG 35 mmHg (35-46); PO2 ABG 90 mmHg (80-95); pH ABG 7.43 (7.35-7.45)
[2020-01-09 18:56] LABS: Allen Test Pos (Pos)
--- NOTE | 2020-01-09 19:15 | XRay Report ---
XR chest 1V portable HISTORY: 79 years-old Female SOB acute shortness of breath COMPARISON: Chest radiograph 01/08/2020 TECHNIQUE: Portable AP view of the chest FINDINGS: Cardiomegaly. No pneumothorax, large pleural effusion or overt pulmonary edema. Chronic blunting of t he costophrenic angles. Subtle ill-defined bibasilar opacities. Degenerative changes of the shoulders and spine. IMPRESSION: 1. Cardiomegaly. 2. Mild bibasilar densities suggest probable atelectasis. ACT 112: Negative or not required by law. The above report was generated using voice recognition software. It may contain grammatical, syntax o r spelling errors. Electronically signed by: Eloy Dunbar M.D. 01/09/2020 7:14 PM
[2020-01-09] MEDS: OXYCODONE/ACETAMINOPHEN 5mg/325mg TAB PO PRN (20:51)
[2020-01-09] MEDS: TRAZODONE HCL 100 MG TAB PO PRN (20:52)
[2020-01-09] MEDS: POTASSIUM CHLORIDE 20 MEQ TABCR PO SCH (20:52)
--- NOTE | 2020-01-09 22:11 | Electrocardiogram Report ---
Test Reason : Blood Pressure : / mmHG Vent. Rate : 075 BPM Atrial Rate : 075 BPM P-R Int : 168 ms QRS Dur : 088 ms QT Int : 414 ms P-R-T Axes : 049 -17 009 degrees QTc Int : 462 ms Normal sinus rhythm Poor R wave progression, consider anterior [place] vs. lead placement vs. LVH Abnormal ECG When compared with ECG of 04-DEC-2015 15:45, IA interval has decreased Confirmed by Vincent Yost ([id number]) on 01/09/2020 10:11:20 PM Referred By: REFERRED SELF Confirmed By:Vincent Yost
[2020-01-09 22:46] LABS: BUN Creatinine Ratio 17.2 (10-20); Calcium 8.5 mg/dl (8.5-10.1); Creatinine Clr Calc Pharmacy 47.3 ml/min; Est GFR (African American) 54.5; Magnesium 1.8 mg/dl (1.8-2.4); Phosphorus 1.9 mg/dl (2.5-4.9); Potassium 3.6 mmol/L (3.5-5.1)
[2020-01-10] MEDS ORDERED: SODIUM PHOSPHATE 3 MMOL/1 ML INFUSION IV STA (01:33)
[2020-01-10] MEDS ORDERED: SODIUM PHOSPHATE 21 MMOL in SODIUM CHLORIDE 0.9% 500 ML IV ONE (01:45)
[2020-01-10] MEDS: HEPARIN SOD 5,000 UNIT/0.5 ML VIAL SQ SCH ×2 (05:12→13:39)
[2020-01-10] MEDS: SERTRALINE HCL 50 MG TABLET PO SCH (08:25)
[2020-01-10] MEDS: POTASSIUM CHLORIDE 20 MEQ TABCR PO SCH ×2 (08:25→21:19)
[2020-01-10] MEDS: METOPROLOL SUCC 50MG EXT REL TAB PO SCH (08:26)
[2020-01-10] MEDS: CHOLECALCIFEROL 1,000 UNITS 25 MCG TAB PO SCH (08:27)
[2020-01-10] MEDS: ASCORBIC ACID 500 MG TAB PO SCH (08:27)
[2020-01-10] MEDS: ATORVASTATIN 40 MG TAB PO SCH (08:27)
[2020-01-10 10:00] LABS: BUN Creatinine Ratio 16.4 (10-20); Calcium 8.7 mg/dl (8.5-10.1); Creatinine Clr Calc Pharmacy 48.1 ml/min; Est GFR (African American) 55.8; Est GFR (Non-African American) 48.1; Magnesium 1.9 mg/dl (1.8-2.4); Potassium 4.3 mmol/L (3.5-5.1)
[2020-01-10] MEDS ORDERED: METOPROLOL TARTRATE 1 MG/ML VIAL IV PRN (11:19)
[2020-01-10] MEDS ORDERED: FUROSEMIDE 20 MG in SYRINGE 0 ML IV ONE (11:45)
[2020-01-10] MEDS: OXYCODONE/ACETAMINOPHEN 5mg/325mg TAB PO PRN ×2 (11:46→23:04)
[2020-01-10] MEDS ORDERED: dilTIAZem HCl 5 MG/ML 5 ML VIAL IV STA (12:28)
[2020-01-10] MEDS ORDERED: STAT IV Infusion **Titration per Protocol STA (12:28)
[2020-01-10] MEDS ORDERED: dilTIAZem HCL 125 MG in DEXTROSE 5% 100 ML IV SCH (12:30)
--- NOTE | 2020-01-10 12:40 | Communication Note ---
Date of Service: January 10, 2020 Pt developed rapid Aib RVR this AM New diagnosis pt is already on PO Metoprolol 100 mg daily -got in AM given IV lopressor 5 mg X1 , no improvement in rate or rhythm ordered for IV cardizem gtt transfer pt to PCU echo , troponin ordered [facility] consulted role of Anticoagulation for stroke prophylaxis will be discussed with Cardiology Nisa alegria MD
[2020-01-10] MEDS ORDERED: MAGNESIUM SULFATE / D5W 1 GM/100 ML BAG IV STA (12:41)
--- NOTE | 2020-01-10 12:49 | Urology Consultation ---
Date of Consultation January 10, 2020 Assessment & Plan (1) UTI (urinary tract infection): Patient on IVF and supprotive care with IV Abx and close monitoring. Previous imaging in Jul showed incomplete emptying. May benefit from BECKA to rule out obstruction or retention. Currently has catheter in place. Recommend continued supportive care and monitoring. With history may develop hematuria. As long as able to empty or drain can monitor. Will need outpatient care and follow up. Plan to continue supportive care. Previous imaging, records, and all history was reviewed, interpreted, and summarized. We will be available if further need History of Present Illness Attending Physician: Nisa Veliz MD History of Present Illness Patient acutely at time of assessment on an on full contact precautions. New consultation for patient with UTI/Pyelo, discomfort, and ill feelings. 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 Patient had confusion and AMS with illness. Because of illness and being transferred to the ICU, patient was unable to be seen at this time. per records, patient developed weakness, confusion, altered mental status as well as sudden onset of pain into flank going down and radiating into groin and back in waves comes and goes. Had weakness and myalgia. On supportive care. Acutely ill and unable to see or questions currently. Spoke with hospitalist about current needs and illness. Chronic issues with CKD and following with nephrolo. I reviewed patient's family history for any history of issues, infections, and disease. Also, discussed patient's medical/surgery history especially related to any history of urinary issues or stone disease. No family history of significant issues. Patient was admitted and is undergoing observation with broad spectrum IV antibiotics. Allergies Allergy/AdvReac Type Severity Reaction Status Date / Time No Known Allergies Allergy Verified 01/08/20 17:02 Home Medications Home Medications Medication Instructions Recorded Confirmed Type ascorbic acid (vitamin C) [Vitamin 1 g PO DAILY 01/08/20 01/08/20 History C] atorvastatin [Lipitor] 40 mg PO DAILY 01/08/20 01/08/20 History benazepril [Lotensin] 10 mg PO DAILY 01/08/20 01/08/20 History cholecalciferol (vitamin D3) 25 mcg PO DAILY 01/08/20 01/08/20 History [Vitamin D3] hydrochlorothiazide 25 mg PO DAILY 01/08/20 01/08/20 History magnesium oxide 400 mg PO DAILY 01/08/20 01/08/20 History metoprolol succinate [Toprol XL] 100 mg PO DAILY 01/08/20 01/08/20 History oxycodone-acetaminophen [Percocet] 1 tab PO Q6 PRN 01/08/20 01/08/20 History sertraline [Zoloft] 150 mg PO DAILY 01/08/20 01/08/20 History trazodone 100 mg PO HS PRN 01/08/20 01/08/20 History Patient History Medical History Chronic back pain CKD (chronic kidney disease), stage III Depression HLD (hyperlipidemia) HTN (hypertension) (Chronic) Macular degeneration Surgical History History of cholecystectomy History of hysterectomy History of total knee arthroplasty Family History Father Coronary heart disease Mother Coronary heart disease Other Cancer Social History Smoking Status: Never smoker Hx Alcohol Use: No Hx Substance Use: No Preferred Language: Greenlandic Communication Ability: Effective Beliefs That Will Affect Care: None marital status: Unknown Current Living Situation: Alone Feels Safe at Home: Yes Review of Systems Review of Systems: Unobtainable due to mental health condition, Unobtainable due to cognitive status and Unobtainable due to reduced consciousness Unable due to acute illness Physical Exam Physical Exam: General: Patient acutely ill and altered mental status being transferred to the ICU. Unable to examine due to patient being actively transferred to ICU. Patient also on respiratory and full contact precautions. Results & Data Vital Signs (Past 12 Hours) Vital Signs Temp Pulse Pulse Resp BP BP Pulse Ox 01/10/20 11:50 36.9 C 144 H 20 155/89 H 96 01/10/20 11:46 147 H 155/89 H 01/10/20 09:00 73 01/10/20 08:54 01/10/20 08:00 37.3 C 127 H 20 149/97 H 95 01/10/20 02:30 36.5 C 92 H 16 129/83 96 01/10/20 01:00 92 H Pulse Ox 01/10/20 11:50 01/10/20 11:46 01/10/20 09:00 01/10/20 08:54 95 01/10/20 08:00 01/10/20 02:30 01/10/20 01:00 PG Care Time/CCT Total # of Minutes Spent Total Time Spent with Patient: Total time spent is greater than 50% in coordination of care (as documented) at patient's floor/unit and/or counseling patient: Coding Level of Care Code 25282 Initial Inpt Care Lvl 3 Diagnoses UTI (urinary tract infection) N30.00 Hematuria presence: without hematuria Urinary tract infection type: acute cystitis (1) UTI (urinary tract infection) Hematuria presence: without hematuria Urinary tract infection type: acute cystitis Qualified Code(s): N30.00 - Acute cystitis without hematuria
[2020-01-10] MEDS: dilTIAZem HCL 125 MG in DEXTROSE 5% 100 ML IV SCH ×2 (13:03→23:19)
[2020-01-10 13:37] LABS: Troponin I 0.398 ng/ml (0-0.045)
--- NOTE | 2020-01-10 15:57 | Electrocardiogram Report ---
Test Reason : Blood Pressure : / mmHG Vent. Rate : 097 BPM Atrial Rate : 097 BPM P-R Int : 168 ms QRS Dur : 082 ms QT Int : 408 ms P-R-T Axes : 042 -03 026 degrees QTc Int : 518 ms Sinus rhythm with Premature atrial complexes Prolonged QT Abnormal ECG When compared with ECG of 08-JAN-2020 15:25, Premature atrial complexes are now Present QT has lengthened Confirmed by Valeriy Carey ([id number]) on 01/10/2020 3:57:21 PM Referred By: REFERRED SELF Confirmed By:Valeriy Carey
--- NOTE | 2020-01-10 15:57 | Electrocardiogram Report ---
Test Reason : Blood Pressure : / mmHG Vent. Rate : 135 BPM Atrial Rate : 108 BPM P-R Int : 000 ms QRS Dur : 084 ms QT Int : 336 ms P-R-T Axes : 000 -19 048 degrees QTc Int : 504 ms Atrial fibrillation with rapid ventricular response Low voltage QRS Nonspecific ST abnormality Abnormal ECG When compared with ECG of 09-JAN-2020 22:05, (unconfirmed) Atrial fibrillation has replaced Sinus rhythm Confirmed by Valeriy Carey ([id number]) on 01/10/2020 3:57:42 PM Referred By: REFERRED SELF Confirmed By:Valeriy Carey
[2020-01-10] MEDS ORDERED: Heparin IV Standard *NO* Bolus IV SCH (16:40)
--- NOTE | 2020-01-10 17:07 | Hospitalist Progress Note ---
Date of Service January 10, 2020 Assessment & Plan (1) Atrial fibrillation: Developed A. fib RVR on the floor, was given IV Lopressor with no improvement of heart rate, started with IV Cardizem Discussed plan of care with cardiology, recommends to continue patient on p.o. Lopressor 25 mg every 6 hours Start with IV heparin weight-based protocol COVID-19 test ordered report pending Echocardiogram will be done after COVID-19 test report available Continue to monitor in telemetry Update given to patient's daughter over phone (2) Weakness: Weakness probable secondary to UTI, electrolyte abnormality as per below -Fall precautions -Treatment of UTI, electrolyte abnormalities as below -PT/OT - (3) UTI (urinary tract infection): WBC: 12, UA: 3+ leuk est, >30 WBC, 5-10 RBC, 10-20 epithel, 3+bacteria - -Will continue Rocephin Urine culture: E. coli, sensitivity pending Patient had recurrent urine tract infection at least 4 episodes in the last 6 months 3 of pelvic radiation treatment for endometrial carcinoma, chronic urinary incontinence/ Urology evaluation requested to assess possible urinary retention (4) Hypokalemia: Due to GI loss, had multiple episodes of diarrhea, loose bowel movements Potassium replaced aggressively Close monitoring of BMP Nephrology following (5) Hypomagnesemia: Due to GI loss, replaced, continue to monitor electrolytes (6) Diarrhea: No further episode this morning, stool for C. difficile negative (7) CKD (chronic kidney disease), stage III: Cr: 1.22. Baseline Cr: 1.2 -Avoid nephrotoxic agents -Monitor renal functions (8) HTN (hypertension): BP up to 166/91 in ER -Hold benazepril and HCTZ at this time-Due to dehydration, ongoing diarrhea -Continue metoprolol -Labetalol prn (9) HLD (hyperlipidemia): -Continue atorvastatin (10) Depression: -Continue sertraline, trazodone DVT Prophylaxis -Heparin SQ DNR/DNI as per discussion with pt Follows with Dr Gifford for routine care Update given to patient's daughter Rosa over the phone Admission and Anticipated Discharge Date Admission Date: January 08, 2020 Subjective Patient was transferred to PCU as developed rapid A. fib RVR: New diagnosis Patient denies of any chest pain shortness of breath no palpitation or dizzy spell Not aware of rapid heartbeat No fever or chills, no abdominal pain no nausea vomiting Physical Exam Physical Exam: General: no distress, obese elderly female Head: normocephalic, atraumatic Eyes: PERRL, EOM's intact, conjunctiva non-injected, anicteric ENT: normal inspection external ears, nose, mucous membranes dry Neck: supple, trachea midline Lungs: clear, no respiratory distress, no wheezing/rhonchi/rales CV: Rapid A. fib RVR Abd: normal BS, soft, protuberant, non-tender Ext: no cyanosis, no calf tenderness Neuro: A&O to person, place, month, year, was initially unsure of day of week, no focal deficits noted, normal affect Skin: warm, dry Results & Data Results & Data ([facility]) Vital Signs (Past 12 Hours) Vital Signs Temp Pulse Pulse Resp BP BP Pulse Ox 01/10/20 15:49 36.7 C 132 H 16 100/73 96 01/10/20 11:50 36.9 C 144 H 20 155/89 H 96 01/10/20 11:46 147 H 155/89 H 01/10/20 09:00 73 01/10/20 08:54 01/10/20 08:00 37.3 C 127 H 20 149/97 H 95 Pulse Ox 01/10/20 15:49 01/10/20 11:50 01/10/20 11:46 01/10/20 09:00 01/10/20 08:54 95 01/10/20 08:00 (1) UTI (urinary tract infection) Hematuria presence: without hematuria Urinary tract infection type: acute cystitis Qualified Code(s): N30.00 - Acute cystitis without hematuria
[2020-01-10] MEDS: HEPARIN SODIUM/DEXTROSE 25,000 UNITS/500 ML BAG IV SCH (17:10)
[2020-01-10] MEDS: cefTRIAXone SODIUM 2,000 MG in DEXTROSE 5% 50 ML IV SCH (18:00)
[2020-01-10 18:09] LABS: Phosphorus 4.6 mg/dl (2.5-4.9)
[2020-01-10 18:38] LABS: Phosphorus 3.2 mg/dl (2.5-4.9); Potassium 3.6 mmol/L (3.5-5.1)
[2020-01-10] MEDS: METOPROLOL TARTRATE 25 MG TAB PO SCH ×2 (18:54→23:05)
[2020-01-10] MEDS: LACTOBACILLUS ACIDOPHILUS (FLORANEX) TAB PO SCH (21:20)
[2020-01-10] MEDS: TRAZODONE HCL 100 MG TAB PO PRN (23:04)
[2020-01-10] MEDS: LOPERAMIDE HCL 2 MG CAP PO PRN (23:04)
[2020-01-11 01:13] LABS: Partial Thromboplastin Ratio 2.6
[2020-01-11 01:29] LABS: Partial Thromboplastin Time 71.2 Seconds (21.0-31.0)
[2020-01-11] MEDS: METOPROLOL TARTRATE 25 MG TAB PO SCH ×4 (05:01→23:34)
[2020-01-11 07:57] LABS: Partial Thromboplastin Ratio 2.5
[2020-01-11 07:59] LABS: Partial Thromboplastin Time 69.7 Seconds (21.0-31.0)
[2020-01-11] MEDS: LACTOBACILLUS ACIDOPHILUS (FLORANEX) TAB PO SCH ×4 (08:02→21:11)
[2020-01-11] MEDS: POTASSIUM CHLORIDE 20 MEQ TABCR PO SCH ×2 (08:03→21:12)
[2020-01-11] MEDS: ASCORBIC ACID 500 MG TAB PO SCH (08:03)
[2020-01-11] MEDS: SERTRALINE HCL 50 MG TABLET PO SCH (08:03)
[2020-01-11] MEDS: CHOLECALCIFEROL 1,000 UNITS 25 MCG TAB PO SCH (08:03)
[2020-01-11] MEDS: ATORVASTATIN 40 MG TAB PO SCH (08:04)
[2020-01-11] MEDS: LOPERAMIDE HCL 2 MG CAP PO PRN ×2 (08:10→21:08)
[2020-01-11 08:12] LABS: BUN Creatinine Ratio 15.7 (10-20); Calcium 8.4 mg/dl (8.5-10.1); Creatinine Clr Calc Pharmacy 48.6 ml/min; Est GFR (African American) 56.4; Est GFR (Non-African American) 48.6; Magnesium 1.8 mg/dl (1.8-2.4); Potassium 3.5 mmol/L (3.5-5.1)
[2020-01-11 08:15] LABS: Phosphorus 3.1 mg/dl (2.5-4.9)
[2020-01-11] MEDS: dilTIAZem HCL 125 MG in DEXTROSE 5% 100 ML IV SCH ×2 (08:24→19:53)
--- NOTE | 2020-01-11 10:18 | Cardiology Consultation ---
Date of Consultation January 11, 2020 Assessment & Plan (1) Hypokalemia: (2) Hypomagnesemia: (3) UTI (urinary tract infection): (4) Diarrhea: (5) Weakness: (6) Atrial fibrillation: The patient is currently hemodynamically stable. She is in persistent atrial fibrillation with the rate very well controlled. I would recommend no additional treatment at this time except to correct her electrolytes and wait for COVID testing. History of Present Illness Attending Physician: Nisa Veliz MD History of Present Illness This is an elderly patient who is usually followed by Eric Tucker through our clinic with probable paroxysmal atrial fibrillation. According to his last visit note she was doing well. She presented to the hospital after several days of being ill and failure to thrive at home. She has had diarrhea. Electrolyte abnormalities on admission. Possible UTI. She is a patient of interest for COVID and testing is still pending. Therefore, I did a chart review consult. Past Medical History 1. Paroxysmal supraventricular tachycardia. 2. Hypertension 3. Dyslipidemia 4. Impaired glucose tolerance. 5. Stage 3 chronic kidney disease. 6. Splenic artery aneurysm 7. Endometrial cancer. 8. General osteoarthritis 9. Macular degeneration 10. Lumbar disc disease 11. Bilateral carpal tunnel syndrome 12. Depression 13. 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 Allergies Allergy/AdvReac Type Severity Reaction Status Date / Time No Known Allergies Allergy Verified 01/08/20 17:02 Home Medications Home Medications Medication Instructions Recorded Confirmed Type ascorbic acid (vitamin C) [Vitamin 1 g PO DAILY 01/08/20 01/08/20 History C] atorvastatin [Lipitor] 40 mg PO DAILY 01/08/20 01/08/20 History benazepril [Lotensin] 10 mg PO DAILY 01/08/20 01/08/20 History cholecalciferol (vitamin D3) 25 mcg PO DAILY 01/08/20 01/08/20 History [Vitamin D3] hydrochlorothiazide 25 mg PO DAILY 01/08/20 01/08/20 History magnesium oxide 400 mg PO DAILY 01/08/20 01/08/20 History metoprolol succinate [Toprol XL] 100 mg PO DAILY 01/08/20 01/08/20 History oxycodone-acetaminophen [Percocet] 1 tab PO Q6 PRN 01/08/20 01/08/20 History sertraline [Zoloft] 150 mg PO DAILY 01/08/20 01/08/20 History trazodone 100 mg PO HS PRN 01/08/20 01/08/20 History Patient History Medical History Chronic back pain CKD (chronic kidney disease), stage III Depression HLD (hyperlipidemia) HTN (hypertension) (Chronic) Macular degeneration Surgical History History of cholecystectomy History of hysterectomy History of total knee arthroplasty Family History Father Coronary heart disease Mother Coronary heart disease Other Cancer Social History Smoking Status: Never smoker Hx Alcohol Use: No Hx Substance Use: No Preferred Language: Amharic Communication Ability: Effective Beliefs That Will Affect Care: None marital status: Unknown Current Living Situation: Alone Feels Safe at Home: Yes Review of Systems Review of Systems: All systems reviewed & are unremarkable except as noted in HPI & below and Unobtainable due to reduced consciousness Physical Exam Physical Exam: The patient is hemodynamically stable. On telemetry she is in a controlled atrial fibrillation. Results & Data ([facility]) Vital Signs (Past 12 Hours) Vital Signs Temp Pulse Pulse Resp BP Pulse Ox 01/11/20 08:10 36.7 C 86 18 138/62 95 01/11/20 04:59 36.7 C 94 H 109/64 96 01/10/20 23:30 36.6 C 128 H 114/63 96 Laboratory Results Laboratory Results - last 24 hr 01/09/20 01/10/20 01/10/20 Unknown 08:17 08:17 APTT PTT Ratio Sodium Potassium Chloride Carbon Dioxide Anion Gap BUN Creatinine Est Cr Clr Drug Dosing Est GFR ( Amer) Est GFR (Non-Af Amer) BUN/Creatinine Ratio Glucose Calcium Phosphorus 4.6 D Magnesium Troponin I 0.398 H* Cancelled SARS-CoV-2 RNA (RT-PCR) NEGATIVE 01/10/20 01/11/20 01/11/20 16:59 00:39 07:14 APTT 71.2 H* PTT Ratio 2.6 Sodium 138 Potassium 3.6 D 3.5 Chloride 105 Carbon Dioxide 25 Anion Gap 8.0 BUN 17 Creatinine 1.07 Est Cr Clr Drug Dosing 48.6 Est GFR ( Amer) 56.4 Est GFR (Non-Af Amer) 48.6 BUN/Creatinine Ratio 15.7 Glucose 117 H Calcium 8.4 L Phosphorus 3.2 D 3.1 Magnesium 2.0 1.8 Troponin I SARS-CoV-2 RNA (RT-PCR) 01/11/20 07:14 APTT 69.7 H* PTT Ratio 2.5 Sodium Potassium Chloride Carbon Dioxide Anion Gap BUN Creatinine Est Cr Clr Drug Dosing Est GFR ( Amer) Est GFR (Non-Af Amer) BUN/Creatinine Ratio Glucose Calcium Phosphorus Magnesium Troponin I SARS-CoV-2 RNA (RT-PCR) Medications Administered Current Inpatient Medications Acetaminophen (Tylenol) 650 mg PO Q4H PRN PRN Reason: Pain or Fever Stop: 02/07/20 18:18 Last Admin: 01/09/20 02:44 Dose: 650 mg Documented by: Ascorbic Acid (Vitamin C) 1,000 mg PO DAILY [facility] Stop: 02/08/20 08:59 Last Admin: 01/11/20 08:03 Dose: 1,000 mg Documented by: Atorvastatin Calcium (Lipitor) 40 mg PO DAILY [facility] Stop: 02/08/20 08:59 Last Admin: 01/11/20 08:04 Dose: 40 mg Documented by: Ceftriaxone Sodium 2,000 mg/ (Dextrose) 70 mls @ 100 mls/hr IV Q24H SARAH; Protocol Stop: 01/14/20 17:59 Last Infusion: 01/10/20 18:56 Dose: Infused Documented by: Diltiazem HCl 125 mg/ Dextrose 125 mls @ 10 mls/hr IV .[id number] [facility]; Protocol Stop: 02/09/20 12:44 Last Admin: 01/11/20 08:24 Dose: 10 mg/hr, 10 mls/hr Documented by: Heparin Sodium/Dextrose (Heparin Sodium/Dextrose) 25,000 units in 500 mls @ 25 mls/hr IV .Q20H [facility]; Protocol Stop: 02/09/20 16:44 Last Titration: 01/11/20 08:25 Dose: 1,250 units/hr, 25 mls/hr Documented by: Lactobacillus Acidophilus (Floranex) 4 tab PO QIDM SAR[facility] Stop: 02/09/20 20:59 Last Admin: 01/11/20 08:02 Dose: 4 tab Documented by: Loperamide HCl (Imodium) 2 mg PO Q6 PRN PRN Reason: Diarrhea Stop: 02/08/20 16:25 Last Admin: 01/11/20 08:10 Dose: 2 mg Documented by: Metoprolol Tartrate (Lopressor) 25 mg PO Q6H SARAH Stop: 02/09/20 16:59 Last Admin: 01/11/20 05:01 Dose: 25 mg Documented by: Ondansetron HCl (Zofran) 4 mg IV Q6H PRN PRN Reason: Nausea Stop: 02/07/20 18:18 Oxycodone/Acetaminophen (Percocet 5mg/325mg) 1 tab PO Q6 PRN PRN Reason: Pain Stop: 01/22/20 20:10 Last Admin: 01/10/20 23:04 Dose: 1 tab Documented by: Potassium Chloride (Klor-Con M20) 20 meq PO BID [facility]AH Stop: 02/08/20 20:59 Last Admin: 01/11/20 08:03 Dose: 20 meq Documented by: Sertraline HCl (Zoloft) 150 mg PO DAILY [facility] Stop: 02/08/20 08:59 Last Admin: 01/11/20 08:03 Dose: 150 mg Documented by: Trazodone HCl (Desyrel) 100 mg PO HS PRN PRN Reason: Insomnia Stop: 02/07/20 20:10 Last Admin: 01/10/20 23:04 Dose: 100 mg Documented by: Vitamin D (Vitamin D3) 1,000 units PO DAILY SARAH Stop: 02/08/20 08:59 Last Admin: 01/11/20 08:03 Dose: 1,000 units Documented by: (1) UTI (urinary tract infection) Hematuria presence: without hematuria Urinary tract infection type: acute cystitis Qualified Code(s): N30.00 - Acute cystitis without hematuria
[2020-01-11] MEDS: HEPARIN SODIUM/DEXTROSE 25,000 UNITS/500 ML BAG IV SCH (12:14)
[2020-01-11 16:42] LABS: Partial Thromboplastin Ratio 2.2
[2020-01-11 17:08] LABS: Partial Thromboplastin Time 62.4 Seconds (21.0-31.0)
[2020-01-11] MEDS: cefTRIAXone SODIUM 2,000 MG in DEXTROSE 5% 50 ML IV SCH (17:39)
--- NOTE | 2020-01-11 18:40 | Hospitalist Progress Note ---
Date of Service January 11, 2020 Assessment & Plan (1) Atrial fibrillation: Paroxysmal A. fib with RVR, new diagnosis during this hospital admission Was started on IV Cardizem Discussed plan of care with cardiology, recommends to continue patient on p.o. Lopressor 25 mg every 6 hours Remains in A. fib with rate controlled Start with IV heparin weight-based protocol anticoagulation COVID-19 test ordered report pending Echocardiogram will be done after COVID-19 test report available Continue to monitor in telemetry Remains completely asymptomatic (2) Weakness: Weakness probable secondary to UTI, electrolyte abnormality as per below -Fall precautions -Treatment of UTI, electrolyte abnormalities as below -PT/OT - (3) UTI (urinary tract infection): WBC: 12, UA: 3+ leuk est, >30 WBC, 5-10 RBC, 10-20 epithel, 3+bacteria - -Will continue Rocephin Urine culture: E. coli, sensitive to Rocephin, ciprofloxacin Given cardiac arrhythmia will try to avoid quinolones Continue Rocephin for now, Before to discharge will be changed to p.o. Keflex Given recurrent UTI, will treat for at least 10 days of therapy Patient had recurrent urine tract infection at least 4 episodes in the last 6 months 3 of pelvic radiation treatment for endometrial carcinoma, chronic urinary incontinence/ Urology evaluation requested appreciate input, Dias catheter drainage for complete evacuation of urinary bladder, renal ultrasound will be ordered once COVID-19 test available (4) Hypokalemia: Corrected, normal potassium level Due to GI loss, had multiple episodes of diarrhea, loose bowel movements Potassium replaced aggressively Close monitoring of BMP Nephrology following (5) Hypomagnesemia: Did normal level Due to GI loss, replaced, continue to monitor electrolytes (6) Diarrhea: No further episode this morning, stool for C. difficile negative (7) CKD (chronic kidney disease), stage III: Cr: 1.22. Baseline Cr: 1.2 -Avoid nephrotoxic agents -Monitor renal functions (8) HTN (hypertension): BP stable -Hold benazepril and HCTZ at this time-Due to dehydration, ongoing diarrhea -Continue metoprolol -Labetalol prn (9) HLD (hyperlipidemia): -Continue atorvastatin (10) Depression: -Continue sertraline, trazodone DVT Prophylaxis -Heparin SQ DNR/DNI as per discussion with pt Follows with Dr Ирина for routine care Admission and Anticipated Discharge Date Admission Date: January 08, 2020 Subjective Patient noted to be in good spirit, feels much better today No complaint of shortness of breath, no fever or chills, no cough In room air No complaint of palpitation dizzy spell or lightheadedness Had only 12 episode of loose bowel movement No abdominal pain no nausea vomiting Physical Exam Physical Exam: General: no distress, obese elderly female Head: normocephalic, atraumatic Eyes: PERRL, EOM's intact, conjunctiva non-injected, anicteric ENT: normal inspection external ears, nose, mucous membranes dry Neck: supple, trachea midline Lungs: clear, no respiratory distress, no wheezing/rhonchi/rales CV: Rapid A. fib RVR Abd: normal BS, soft, protuberant, non-tender Ext: no cyanosis, no calf tenderness Neuro: A&O to person, place, month, year, was initially unsure of day of week, no focal deficits noted, normal affect Skin: warm, dry Results & Data Results & Data ([facility]) Vital Signs (Past 12 Hours) Vital Signs Temp Pulse Pulse Resp BP Pulse Ox 01/11/20 15:22 36.7 C 117 H 16 120/80 95 01/11/20 11:20 36.6 C 107 H 19 130/70 94 01/11/20 08:10 36.7 C 86 18 138/62 95 (1) UTI (urinary tract infection) Hematuria presence: without hematuria Urinary tract infection type: acute cystitis Qualified Code(s): N30.00 - Acute cystitis without hematuria
[2020-01-11] MEDS: OXYCODONE/ACETAMINOPHEN 5mg/325mg TAB PO PRN (21:08)
[2020-01-11] MEDS: TRAZODONE HCL 100 MG TAB PO PRN (21:16)
[2020-01-12] MEDS: METOPROLOL TARTRATE 25 MG TAB PO SCH ×4 (04:35→23:13)
[2020-01-12 07:21] LABS: Calcium 8.7 mg/dl (8.5-10.1); Creatinine Clr Calc Pharmacy 49.9 ml/min; Est GFR (African American) 58.4; Est GFR (Non-African American) 50.3; Magnesium 1.7 mg/dl (1.8-2.4); Phosphorus 2.8 mg/dl (2.5-4.9)
[2020-01-12 07:25] LABS: Partial Thromboplastin Ratio 1.9
[2020-01-12 07:26] LABS: Partial Thromboplastin Time 53.9 Seconds (21.0-31.0)
[2020-01-12] MEDS: POTASSIUM CHLORIDE 20 MEQ TABCR PO SCH ×2 (08:24→20:03)
[2020-01-12] MEDS: LACTOBACILLUS ACIDOPHILUS (FLORANEX) TAB PO SCH ×4 (08:24→20:03)
[2020-01-12] MEDS: ATORVASTATIN 40 MG TAB PO SCH (08:24)
[2020-01-12] MEDS: ASCORBIC ACID 500 MG TAB PO SCH (08:25)
[2020-01-12] MEDS: SERTRALINE HCL 50 MG TABLET PO SCH (08:25)
[2020-01-12] MEDS: CHOLECALCIFEROL 1,000 UNITS 25 MCG TAB PO SCH (08:25)
[2020-01-12] MEDS: LOPERAMIDE HCL 2 MG CAP PO PRN ×2 (08:30→20:07)
[2020-01-12] MEDS: HEPARIN SODIUM/DEXTROSE 25,000 UNITS/500 ML BAG IV SCH (08:30)
[2020-01-12] MEDS: OXYCODONE/ACETAMINOPHEN 5mg/325mg TAB PO PRN ×2 (08:30→20:07)
--- NOTE | 2020-01-12 09:34 | Nephrology Progress Note ---
Date of Service January 12, 2020 Assessment & Plan (1) Hypokalemia: Patient with hypokalemia likely due to GI losses in setting of diarrhea. Admission potassium was 2.7 which has improved to 3.2 this morning. Patient is still having diarrhea and therefore anticipated continuing potassium losses. -Continue p.o. potassium replacement 20 mEq twice daily. -Renal will sign off. Please call if additional questions or concerns (2) Hypomagnesemia: Likely due to GI losses. Admission magnesium was 1.4. -We will hold p.o. magnesium oxide due to diarrhea. Continue IV supplements as needed. (3) CKD (chronic kidney disease), stage III: Patient with CKD stage III and baseline creatinine of 1.2. Renal function is at baseline. Avoid contrast unless lifesaving. Will monitor renal function with daily BMP (4) HTN (hypertension): Blood pressure is controlled. We will hold antihypertensives today due to ongoing diarrhea. Admission and Anticipated Discharge Date Admission Date: January 08, 2020 Subjective Patient is still having diarrhea. Potassium has been stable for the past few days. She is still on Cardizem drip for rapid A. fib Review of Systems Review of Systems: All systems reviewed & are unremarkable except as noted in HPI & below Physical Exam Physical Exam: General exam: Appears comfortable, no acute distress HEENT: Pupils are equal and reactive to light Neck: No JVD, neck is supple trachea is midline Respiratory system: Clear breath sounds bilaterally. Gastrointestinal: Abdomen is soft, non distended, non tender, bowel sounds are present CVS: Regular rate and rhythm. No murmurs, rubs or gallops Musculoskeletal: No joint or muscle tenderness Extremities: Non tender, no edema, peripheral pulses are present Neuro: Oriented, no tremors, no focal neurological deficits Skin: No rashes Results & Data ([facility]) Vital Signs (Past 12 Hours) Vital Signs Temp Pulse Pulse Resp BP BP Pulse Ox 01/12/20 08:00 121 H 01/12/20 07:32 36.5 C 106 H 19 133/76 92 01/12/20 04:47 36.9 C 68 18 111/76 91 01/12/20 00:00 121 H 01/11/20 23:55 36.9 C 95 H 20 107/70 93 Laboratory Results 01/12/20 06:51 01/12/20 06:51 Phosphorus 2.8
[2020-01-12] MEDS: MAGNESIUM SULFATE / D5W 1 GM/100 ML BAG IV SCH ×2 (10:51→13:00)
--- NOTE | 2020-01-12 10:51 | Cardiology Progress Note ---
Date of Service January 12, 2020 Assessment & Plan (1) Hypokalemia: (2) Hypomagnesemia: (3) UTI (urinary tract infection): (4) Diarrhea: (5) Weakness: (6) Atrial fibrillation: The patient remains in atrial fibrillation with rate control. I am going to start her on warfarin. I would continue the heparin until she is therapeutic on her INR. I am also going to start her on amiodarone and discontinue the Cardizem drip. Her echocardiogram suggests that she may be volume overloaded and I am going to give her a dose of diuretics today. Subjective The patient's COVID test was negative. She has no cardiac complaints. Review of Systems Review of Systems: All systems reviewed & are unremarkable except as noted in HPI & below Nothing additional to add. Physical Exam Physical Exam: General: no acute distress and stated age Head: normocephalic, no masses, lesions, tenderness or abnormalities Eyes: conjunctiva are pink and non-injected, sclera clear Neck: supple, no adenopathy, no bruits, normal jugular venous pulse, no hepatojugular reflux Chest: normal shape and normal respiratory effort Lungs: clear to auscultation and percussion Cardiac Exam: - irregular rate & rhythm, no murmurs gallops or rubs - normal S1, normal S2 Pulses: 2(+) throughout Abdomen: abdomen soft, non-tender, no abnormal masses and no hepatosplenomegaly Musculoskeletal: no gait disturbance, no joint inflammation, no deforming arthritis Extremities: no edema and no cyanosis Neuro: grossly normal exam Results & Data Vital Signs (Past 12 Hours) Vital Signs Temp Pulse Pulse Resp BP BP Pulse Ox 01/12/20 08:00 121 H 01/12/20 07:32 36.5 C 106 H 19 133/76 92 01/12/20 04:47 36.9 C 68 18 111/76 91 01/12/20 00:00 121 H 01/11/20 23:55 36.9 C 95 H 20 107/70 93 Laboratory Results Laboratory Results - last 24 hr 01/11/20 01/12/20 01/12/20 16:01 06:51 06:51 APTT 62.4 H* 53.9 H* PTT Ratio 2.2 1.9 Sodium 138 Potassium 4.0 Chloride 107 Carbon Dioxide 26 Anion Gap 6.0 BUN 16 Creatinine 1.04 Est Cr Clr Drug Dosing 49.9 Est GFR ( Amer) 58.4 Est GFR (Non-Af Amer) 50.3 BUN/Creatinine Ratio 15.0 Glucose 127 H Calcium 8.7 Phosphorus 2.8 Magnesium 1.7 L Diagnostic Findings The echocardiogram shows normal LV function with some dilatation of the right cardiac chambers that may suggest pulmonary hypertension perhaps due to volume overload. Medications Administered Current Inpatient Medications Acetaminophen (Tylenol) 650 mg PO Q4H PRN PRN Reason: Pain or Fever Stop: 02/07/20 18:18 Last Admin: 01/09/20 02:44 Dose: 650 mg Documented by: Amiodarone HCl (Cordarone) 200 mg PO TIDM [facility] Stop: 02/11/20 11:59 Ascorbic Acid (Vitamin C) 1,000 mg PO DAILY [facility] Stop: 02/08/20 08:59 Last Admin: 01/12/20 08:25 Dose: 1,000 mg Documented by: Atorvastatin Calcium (Lipitor) 40 mg PO DAILY [facility] Stop: 02/08/20 08:59 Last Admin: 01/12/20 08:24 Dose: 40 mg Documented by: Ceftriaxone Sodium 2,000 mg/ (Dextrose) 70 mls @ 100 mls/hr IV Q24H [facility]; Protocol Stop: 01/14/20 17:59 Last Infusion: 01/11/20 18:41 Dose: Infused Documented by: Heparin Sodium/Dextrose (Heparin Sodium/Dextrose) 25,000 units in 500 mls @ 25 mls/hr IV .Q20H [facility]; Protocol Stop: 02/09/20 16:44 Last Admin: 01/12/20 08:30 Dose: 1,250 units/hr, 25 mls/hr Documented by: Magnesium Sulfate/Dextrose (Magnesium Sulfate / D5w) 1 gm in 100 mls @ 50 mls/hr IV Q2H [facility] Stop: 01/12/20 14:29 Lactobacillus Acidophilus (Floranex) 4 tab PO QIDM [facility] Stop: 02/09/20 20:59 Last Admin: 01/12/20 08:24 Dose: 4 tab Documented by: Loperamide HCl (Imodium) 2 mg PO Q6 PRN PRN Reason: Diarrhea Stop: 02/08/20 16:25 Last Admin: 01/12/20 08:30 Dose: 2 mg Documented by: Metoprolol Tartrate (Lopressor) 25 mg PO Q6H [facility] Stop: 02/09/20 16:59 Last Admin: 01/12/20 04:35 Dose: 25 mg Documented by: Ondansetron HCl (Zofran) 4 mg IV Q6H PRN PRN Reason: Nausea Stop: 02/07/20 18:18 Oxycodone/Acetaminophen (Percocet 5mg/325mg) 1 tab PO Q6 PRN PRN Reason: Pain Stop: 01/22/20 20:10 Last Admin: 01/12/20 08:30 Dose: 1 tab Documented by: Potassium Chloride (Klor-Con M20) 20 meq PO BID [facility] Stop: 02/08/20 20:59 Last Admin: 01/12/20 08:24 Dose: 20 meq Documented by: Sertraline HCl (Zoloft) 150 mg PO DAILY [facility] Stop: 02/08/20 08:59 Last Admin: 01/12/20 08:25 Dose: 150 mg Documented by: Trazodone HCl (Desyrel) 100 mg PO HS PRN PRN Reason: Insomnia Stop: 02/07/20 20:10 Last Admin: 01/11/20 21:16 Dose: 100 mg Documented by: Vitamin D (Vitamin D3) 1,000 units PO DAILY [facility] Stop: 02/08/20 08:59 Last Admin: 01/12/20 08:25 Dose: 1,000 units Documented by: Warfarin Sodium (Coumadin) 5 mg PO DAILY@1600 [facility] Stop: 02/11/20 15:59 (1) UTI (urinary tract infection) Hematuria presence: without hematuria Urinary tract infection type: acute cystitis Qualified Code(s): N30.00 - Acute cystitis without hematuria
[2020-01-12] MEDS ORDERED: SODIUM CHLORIDE 0.9% 500 ML IV SCH (11:00)
[2020-01-12] MEDS ORDERED: FUROSEMIDE 40 MG in SYRINGE 0 ML IV ONE (11:15)
[2020-01-12] MEDS: AMIODARONE 200 MG TAB PO SCH ×2 (11:52→16:59)
[2020-01-12 12:24] LABS: D Dimer 500 ug/L FEU (0-500); INR 1.1 (0.9-1.1); Prothrombin Time 11.1 Seconds (9.0-12.0)
--- NOTE | 2020-01-12 12:33 | Ultrasound Report ---
ULTRASOUND KIDNEYS AND BLADDER CLINICAL HISTORY: Urinary retention. COMPARISON STUDY: Abdominal CT dated 08/31/2017. TECHNIQUE: Real-time, grayscale, and color flow sonography of the kidneys and bladder is performed. I mages are reviewed in the transverse and longitudinal planes. FINDINGS: Kidneys: The kidneys demonstrate mild cortical atrophy and are normal in echotexture. The right kidne y measures 9.7 x 3.8 x 5.5 cm and the left kidney measures 10.5 x 5.2 x 5.5 cm. There is moderate lef t-sided hydronephrosis. No hydronephrosis is seen on the right. No shadowing renal calculi are identi fied. There is no sonographic evidence of contour deforming renal mass lesion. No perinephric fluid i s identified. Bladder: The bladder is decompressed around a Dias catheter and cannot be evaluated. IMPRESSION: 1. The kidneys demonstrate cortical atrophy. No hydronephrosis is seen on the right. 2. There is mild to moderate left hydronephrosis. 3. The bladder is decompressed around a Dias catheter and cannot be evaluated. ACT 112: Negative or not required by law. Electronically signed by: Miguel A Vazquez M.D. 01/12/2020 12:31 PM
[2020-01-12] MEDS: WARFARIN SOD 5 MG TAB PO SCH (16:59)
[2020-01-12] MEDS: cefTRIAXone SODIUM 2,000 MG in DEXTROSE 5% 50 ML IV SCH (17:01)
--- NOTE | 2020-01-12 17:20 | Hospitalist Progress Note ---
Date of Service January 12, 2020 Assessment & Plan (1) Atrial fibrillation: Paroxysmal A. fib with RVR, new diagnosis during this hospital admission Patient input from cardiology, patient started with amiodarone, IV Cardizem discontinued Remains in A. fib with rate controlled Start with IV heparin weight-based protocol anticoagulation/Coumadin today for long-term stroke prophylaxis COVID-19 test, droplet and airborne precaution discontinued Echocardiogram : Shows no wall motion abnormality, ejection fraction 55-60% mildly dilated right ventricle with reduced right ventricular systolic failure suggestive of right heart failure Patient given Lasix by cardiology Continue to monitor in telemetry (2) Weakness: Denise gradually improving Weakness probable secondary to UTI, electrolyte abnormality as per below -Fall precautions -PT/OT - (3) UTI (urinary tract infection): WBC: 12, UA: 3+ leuk est, >30 WBC, 5-10 RBC, 10-20 epithel, 3+bacteria - -Will continue Rocephin Urine culture: E. coli, sensitive to Rocephin, ciprofloxacin Given cardiac arrhythmia will try to avoid quinolones Continue Rocephin for now, Before to discharge will be changed to p.o. Keflex Given recurrent UTI, will treat for at least 10 days of therapy Patient had recurrent urine tract infection at least 4 episodes in the last 6 months 3 of pelvic radiation treatment for endometrial carcinoma, chronic urinary incontinence/ Urology evaluation requested appreciate input, Dias catheter drainage for complete evacuation of urinary bladder, Renal ultrasound: Kidneys demonstrate cortical atrophy. No hydronephrosis is seen on right/there is mild to moderate left hydronephrosis/bladder is decompressed around a Dias catheter Patient will need outpatient follow-up with urology clinic (4) Hypokalemia: Corrected, normal potassium level Due to GI loss, had multiple episodes of diarrhea, loose bowel movements Potassium replaced aggressively Close monitoring of BMP Nephrology consult appreciated (5) Hypomagnesemia: Normal level today Due to GI loss, replaced, continue to monitor electrolytes (6) Diarrhea: stool for C. difficile negative For PRN Imodium (7) CKD (chronic kidney disease), stage III: Cr: 1.22. Baseline Cr: 1.2 Function at baseline -Avoid nephrotoxic agents -Monitor renal functions (8) HTN (hypertension): BP stable -Hold benazepril and HCTZ at this time-Due to dehydration, ongoing diarrhea -Continue metoprolol -Labetalol prn -. ACEi and HCTZ will be resumed tomorrow if electrolytes and renal function remained stable (9) HLD (hyperlipidemia): -Continue atorvastatin (10) Depression: -Continue sertraline, trazodone DVT Prophylaxis -Heparin SQ DNR/DNI as per discussion with pt Follows with Dr Gifford for routine care Patient will need PT OT evaluation for significant deconditioning Update given to patient's daughter Rosa over phone Family willing for inpatient rehab at [facility] as patient received rehab therapy there prior Will update case management Admission and Anticipated Discharge Date Admission Date: January 08, 2020 Subjective Complains of ongoing loose stool, diarrhea Had 2 episodes this morning No abdominal pain no nausea vomiting tolerating diet Denies of any chest pain no shortness of breath no palpitation Heart rate remains A. fib with controlled Fever chills, no cough Review of Systems Review of Systems: All systems reviewed & are unremarkable except as noted in HPI & below Physical Exam Physical Exam: General: no distress, obese elderly female Head: normocephalic, atraumatic Eyes: PERRL, EOM's intact, conjunctiva non-injected, anicteric ENT: normal inspection external ears, nose, mucous membranes dry Neck: supple, trachea midline Lungs: clear, no respiratory distress, no wheezing/rhonchi/rales CV: Rapid A. fib RVR Abd: normal BS, soft, protuberant, non-tender Ext: no cyanosis, no calf tenderness Neuro: A&O to person, place, month, year, was initially unsure of day of week, no focal deficits noted, normal affect Skin: warm, dry Results & Data Results & Data ([facility]) Vital Signs (Past 12 Hours) Vital Signs Temp Pulse Pulse Resp BP BP Pulse Ox 01/12/20 16:14 36.7 C 75 20 138/71 93 01/12/20 11:15 37.0 C 76 19 108/74 94 01/12/20 08:00 121 H 01/12/20 07:32 36.5 C 106 H 19 133/76 92 (1) UTI (urinary tract infection) Hematuria presence: without hematuria Urinary tract infection type: acute cystitis Qualified Code(s): N30.00 - Acute cystitis without hematuria
[2020-01-12] MEDS: TRAZODONE HCL 100 MG TAB PO PRN (20:01)
[2020-01-13] MEDS: METOPROLOL TARTRATE 25 MG TAB PO SCH ×4 (04:25→23:09)
[2020-01-13] MEDS: HEPARIN SODIUM/DEXTROSE 25,000 UNITS/500 ML BAG IV SCH ×2 (04:25→23:08)
[2020-01-13 06:46] LABS: INR 1.1 (0.9-1.1); Prothrombin Time 11.4 Seconds (9.0-12.0)
[2020-01-13 07:07] LABS: Creatinine Clr Calc Pharmacy 45.6 ml/min; Est GFR (African American) 51.7; Est GFR (Non-African American) 44.6; Potassium 4.5 mmol/L (3.5-5.1)
[2020-01-13 07:46] LABS: Partial Thromboplastin Ratio 1.5
[2020-01-13] MEDS: LACTOBACILLUS ACIDOPHILUS (FLORANEX) TAB PO SCH ×4 (08:07→20:12)
[2020-01-13] MEDS: SERTRALINE HCL 50 MG TABLET PO SCH (08:09)
[2020-01-13] MEDS: ATORVASTATIN 40 MG TAB PO SCH (08:10)
[2020-01-13] MEDS: AMIODARONE 200 MG TAB PO SCH ×3 (08:11→16:07)
[2020-01-13] MEDS: cephALEXin 250 MG CAP PO SCH ×4 (08:12→20:12)
[2020-01-13] MEDS: ASCORBIC ACID 500 MG TAB PO SCH (08:12)
[2020-01-13] MEDS: POTASSIUM CHLORIDE 20 MEQ TABCR PO SCH ×2 (08:14→20:13)
[2020-01-13] MEDS ORDERED: HEPARIN IV BOLUS 3,000 UNITS in SYRINGE 0 ML IV ONE (09:00)
[2020-01-13] MEDS ORDERED: IOVERSOL 100ml IV PRN (10:08)
--- NOTE | 2020-01-13 10:32 | CT Scan Report ---
CT chest w con CT DOSE: HISTORY: Dyspnea eval for lungs pathology TECHNIQUE: Multiaxial CT images of the chest were performed following the intravenous administration of contrast. A dose lowering technique was utilized adhering to the principles of ALARA. COMPARISON: 08/31/2017 FINDINGS: Small bilateral pleural effusions. Partial bilateral lower lobe atelectatic change. Lungs otherwise are clear. Interval development of the posterior right breast 3 cm mass. 2 cm low right axillary node. Mammograp hic evaluation is suggested. No significant mediastinal or hilar adenopathy. IMPRESSION: 1. Small bilateral pleural effusions. 2. Bilateral lower lobe atelectatic change. 3. 3 cm posterior right breast mass. 4. 2 cm low right axillary node. 5. Mammographic evaluation is highly recommended. ACT 112: Negative or not required by law. The above report was generated using voice recognition software. It may contain grammatical, syntax or spelling errors. Electronically signed by: Eric Lynn M.D. 01/13/2020 10:30 AM
--- NOTE | 2020-01-13 10:42 | CT Scan Report ---
ABDOMEN AND PELVIS CT WITH IV CONTRAST CT DOSE: 1848.71 mGy.cm HISTORY: Acute weight loss. History of uterine cancer. significant wt loss , eval for pathology TECHNIQUE: Multiaxial CT images of the abdomen and pelvis were performed following the IV administrat ion of 94 cc of Optiray 320, A dose lowering technique was utilized adhering to the principles of AL JORGE. COMPARISON STUDY: Chest CT of same day, CT abdomen and pelvis 08/31/2017 FINDINGS: Small pleural effusions with dependent bibasilar consolidation suggestive of compressive atelectasis. Additionally, there are hazy ill-defined bibasilar groundglass densities. There are a few solid biba silar pulmonary nodules measuring up to approximately 4 mm. No pneumatosis or pneumoperitoneum. Mild cardiomegaly with coronary artery calcifications. No pericardial effusion. The spleen is unremarkable. Peripherally calcified splenic artery aneurysm, 1.4 x 1.5 cm. mild genera lized pancreatic atrophy. Mild thickening of the left adrenal gland. Normal right adrenal gland. Chol ecystectomy with likely postsurgical intrahepatic and extrahepatic biliary ductal dilation. There are a few hypodensities of the liver suggestive of probable cysts measuring up to 11 mm. Patency of the hepatic and portal veins. Nonspecific bilateral perinephric stranding. There is mild to moderate left-sided hydroureteronephros is with narrowing of the distal left ureter noted adjacent to surgical clips within the abdominal lef t lower quadrant on image 33 series 3. Ureter distal to this area of narrowing is normal in caliber. No obstructing mass or calculus. Probable cyst of the superior pole right kidney, 1.[address] is present within a decompressed urinary bladder which demonstrates mild wall thickening. Hystere ctomy. No adnexal mass lesions. Calcified plaque of the abdominal aorta without aneurysm. There is no adenopathy. There is no bowel obstruction. Colonic diverticulosis without acute diverticulitis. Scattered large b owel air-fluid levels. Noninflamed appendix. Mild generalized body wall edema. 2.7 x 1.8 cm enhancing mass is noted involving the superior lateral right breast which abuts the chest wall. There are a fe w enhancing nodules measuring up to 9 mm noted inferiorly and laterally to this dominant mass which a ppears new from the 2018 study. Degenerative changes of the spine, pelvis and hips. No suspicious bon e lesions. IMPRESSION: 1. Enhancing irregular mass within the superior lateral quadrant of the right breast abuts the chest wall measuring up to 2.7 cm. Additionally, there are a few enhancing subcentimeter enhancing foci inf eriorly and laterally to the dominant mass. Findings are suggestive of multifocal malignancy. Correla tion with mammography is needed. 2. Mild/moderate left-sided hydroureteronephrosis with narrowing of the distal left ureter adjacent t o surgical clips within the left hemipelvis. No obstructing mass or calculus identified. 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 Urology consultation recommended. 3. Small pleural effusions with dependent bibasilar atelectasis. 4. 1.5 cm splenic artery aneurysm. 5. No bowel obstruction or bowel wall thickening. Normal appendix. 6. Colonic diverticulosis. ACT 112: Positive. There are findings on this exam that require communication between the performing entity and the patient following Patient Test Result Information Act ([place] Act 112) guidelines. The above report was generated using voice recognition software. It may contain grammatical, syntax o r spelling errors. Electronically signed by: Eloy Dunbar M.D. 01/13/2020 10:41 AM
[2020-01-13] MEDS ORDERED: MENTHOL-ZINC OXIDE 360 APPLN/120 GM TUBE EXT PRN (10:45)
--- NOTE | 2020-01-13 12:32 | Communication Note ---
Date of Service: January 13, 2020 CT chest IV contrast : -3 cm posterior right breast mass. -2 cm low right axillary node. CT abdomen/pelvis with contrast : 1. Enhancing irregular mass within the superior lateral quadrant of the right breast abuts the chest wall measuring up to 2.7 cm. Additionally, there are a few enhancing subcentimeter enhancing foci inferiorly and laterally to the dominant mass. Findings are suggestive of multifocal malignancy. Correlation with mammography is needed. 2. Mild/moderate left-sided hydroureteronephrosis with narrowing of the distal left ureter adjacent to surgical clips within the left hemipelvis. No obstructing mass or calculus identified. 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 Urology consultation recommended. Breast mass and right Axillary lymphadenopathy is new comparison to prior imaging on 2018. concern for recurrence of breath Ca with mets pt was followed with [facility] athletic trainer Oncology will try to reach out and discuss the findings CT images transmitted to [facility] system LEFT SIDED HYDROURETERONEPHROSIS : dud to possible ureteric stricture Urology on board will update the CT abdomen finding Family will be updated regarding CT finding Nisa Veliz MD
--- NOTE | 2020-01-13 13:06 | Cardiology Progress Note ---
Date of Service January 13, 2020 Assessment & Plan (1) Hypokalemia: (2) Hypomagnesemia: (3) UTI (urinary tract infection): (4) Diarrhea: (5) Weakness: (6) Atrial fibrillation: CT of the chest noted with possible breast mass. The patient is currently alert and seems to be doing better. She remains in atrial fibrillation with rate control. I would continue to load with amiodarone. Subjective No complaints, patient is eating lunch. Review of Systems Review of Systems: All systems reviewed & are unremarkable except as noted in HPI & below Nothing additional to add. Physical Exam Physical Exam: General: no acute distress and stated age Head: normocephalic, no masses, lesions, tenderness or abnormalities Eyes: conjunctiva are pink and non-injected, sclera clear Neck: supple, no adenopathy, no bruits, normal jugular venous pulse, no hepatoj ugular reflux Chest: normal shape and normal respiratory effort Lungs: clear to auscultation and percussion Cardiac Exam: - irregular rate & rhythm, no murmurs gallops or rubs - normal S1, normal S2 Pulses: 2(+) throughout Abdomen: abdomen soft, non-tender, no abnormal masses and no hepatosplenomegaly Musculoskeletal: no gait disturbance, no joint inflammation, no deforming arthritis Extremities: no edema and no cyanosis Neuro: grossly normal exam Results & Data Vital Signs (Past 12 Hours) Vital Signs Temp Pulse Pulse Resp BP Pulse Ox Pulse Ox 01/13/20 11:13 36.6 C 120 H 19 141/85 H 93 01/13/20 09:43 121 H 01/13/20 08:00 93 01/13/20 04:00 36.8 C 125 H 102/77 93 Laboratory Results Laboratory Results - last 24 hr 01/12/20 01/13/20 01/13/20 16:41 06:17 06:17 PT 11.4 INR 1.1 APTT PTT Ratio Sodium 139 Potassium 4.5 Chloride 105 Carbon Dioxide 28 Anion Gap 6.0 BUN 17 Creatinine 1.15 Est Cr Clr Drug Dosing 45.6 Est GFR ( Amer) 51.7 Est GFR (Non-Af Amer) 44.6 BUN/Creatinine Ratio 15.0 Glucose 129 H POC Glucose 143 H Calcium 9.0 Magnesium 2.0 Stl C. diff Tox B Gene 01/13/20 01/13/20 07:15 09:35 PT INR APTT 42.0 H PTT Ratio 1.5 Sodium Potassium Chloride Carbon Dioxide Anion Gap BUN Creatinine Est Cr Clr Drug Dosing Est GFR ( Amer) Est GFR (Non-Af Amer) BUN/Creatinine Ratio Glucose POC Glucose Calcium Magnesium Stl C. diff Tox B Gene Negative Cdiff Gene Medications Administered Current Inpatient Medications Acetaminophen (Tylenol) 650 mg PO Q4H PRN PRN Reason: Pain or Fever Stop: 02/07/20 18:18 Last Admin: 01/09/20 02:44 Dose: 650 mg Documented by: Amiodarone HCl (Cordarone) 200 mg PO TIDM [facility] Stop: 02/11/20 11:59 Last Admin: 01/13/20 08:11 Dose: 200 mg Documented by: Ascorbic Acid (Vitamin C) 1,000 mg PO DAILY [facility] Stop: 02/08/20 08:59 Last Admin: 01/13/20 08:12 Dose: 1,000 mg Documented by: Atorvastatin Calcium (Lipitor) 40 mg PO DAILY [facility] Stop: 02/08/20 08:59 Last Admin: 01/13/20 08:10 Dose: 40 mg Documented by: Calamine/Phenol (Calmoseptine) 1 appln EXT UD PRN PRN Reason: SOILING Stop: 02/12/20 10:44 Cephalexin HCl (Keflex) 250 mg PO QID [facility]; Protocol Stop: 01/18/20 08:59 Last Admin: 01/13/20 08:12 Dose: 250 mg Documented by: Heparin Sodium/Dextrose (Heparin Sodium/Dextrose) 25,000 units in 500 mls @ 28 mls/hr IV .[id number] [facility]; Protocol Stop: 02/09/20 16:44 Last Titration: 01/13/20 08:42 Dose: 1,400 units/hr, 28 mls/hr Documented by: Ioversol (Optiray 320 100ml) 94 ml IV ONCE PRN PRN Reason: Interaction Checking Stop: 01/17/20 10:07 Last Admin: 01/13/20 10:09 Dose: 94 ml Documented by: Lactobacillus Acidophilus (Floranex) 4 tab PO QIDM [facility] Stop: 02/09/20 20:59 Last Admin: 01/13/20 08:07 Dose: 4 tab Documented by: Loperamide HCl (Imodium) 2 mg PO Q6 PRN PRN Reason: Diarrhea Stop: 02/08/20 16:25 Last Admin: 01/12/20 20:07 Dose: 2 mg Documented by: Metoprolol Tartrate (Lopressor) 25 mg PO Q6H [facility] Stop: 02/09/20 16:59 Last Admin: 01/13/20 08:07 Dose: 25 mg Documented by: Ondansetron HCl (Zofran) 4 mg IV Q6H PRN PRN Reason: Nausea Stop: 02/07/20 18:18 Oxycodone/Acetaminophen (Percocet 5mg/325mg) 1 tab PO Q6 PRN PRN Reason: Pain Stop: 01/22/20 20:10 Last Admin: 01/12/20 20:07 Dose: 1 tab Documented by: Potassium Chloride (Klor-Con M20) 20 meq PO BID [facility] Stop: 02/08/20 20:59 Last Admin: 01/13/20 08:14 Dose: 20 meq Documented by: Sertraline HCl (Zoloft) 150 mg PO DAILY [facility] Stop: 02/08/20 08:59 Last Admin: 01/13/20 08:09 Dose: 150 mg Documented by: Trazodone HCl (Desyrel) 100 mg PO HS PRN PRN Reason: Insomnia Stop: 02/07/20 20:10 Last Admin: 01/12/20 20:01 Dose: 100 mg Documented by: Warfarin Sodium (Coumadin) 5 mg PO DAILY@1600 [facility] Stop: 02/11/20 15:59 Last Admin: 01/12/20 16:59 Dose: 5 mg Documented by: (1) UTI (urinary tract infection) Hematuria presence: without hematuria Urinary tract infection type: acute cystitis Qualified Code(s): N30.00 - Acute cystitis without hematuria
[2020-01-13 14:57] LABS: Partial Thromboplastin Ratio 2.3
[2020-01-13 15:14] LABS: Partial Thromboplastin Time 63.4 Seconds (21.0-31.0)
[2020-01-13] MEDS: WARFARIN SOD 5 MG TAB PO SCH (16:05)
[2020-01-13] MEDS: LOPERAMIDE HCL 2 MG CAP PO PRN ×2 (16:20→23:09)
--- NOTE | 2020-01-13 16:24 | Hospitalist Progress Note ---
Date of Service January 13, 2020 Assessment & Plan (1) Atrial fibrillation: Paroxysmal A. fib with RVR, new diagnosis during this hospital admission Patient input from cardiology, patient started with amiodarone, IV Cardizem discontinued Remains in A. fib with rate controlled Start with IV heparin weight-based protocol anticoagulation/Coumadin today for long-term stroke prophylaxis COVID-19 test, droplet and airborne precaution discontinued Echocardiogram : Shows no wall motion abnormality, ejection fraction 55-60% mildly dilated right ventricle with reduced right ventricular systolic failure suggestive of right heart failure Patient given Lasix by cardiology Continue to monitor in telemetry (2) Weakness: Denise gradually improving Weakness probable secondary to UTI, electrolyte abnormality as per below -Fall precautions -PT/OT CT abdomen pelvis with IV contrast shows possible new diagnosis of right-sided breast cancer, as documented on previous note Patient will need outpatient follow-up established for breast mammogram, breast biopsy Patient's family physician will be updated - (3) UTI (urinary tract infection): WBC: 12, UA: 3+ leuk est, >30 WBC, 5-10 RBC, 10-20 epithel, 3+bacteria - -Will continue Rocephin Urine culture: E. coli, sensitive to Rocephin, ciprofloxacin Given cardiac arrhythmia will try to avoid quinolones Continue Rocephin for now, Before to discharge will be changed to p.o. Keflex Given recurrent UTI, will treat for at least 10 days of therapy Patient had recurrent urine tract infection at least 4 episodes in the last 6 months 3 of pelvic radiation treatment for endometrial carcinoma, chronic urinary incontinence/ Urology evaluation requested appreciate input, Dias catheter drainage for complete evacuation of urinary bladder, Renal ultrasound: Kidneys demonstrate cortical atrophy. No hydronephrosis is seen on right/there is mild to moderate left hydronephrosis/bladder is decompressed around a Dias catheter Patient will need outpatient follow-up with urology clinic (4) Hypokalemia: Corrected, normal potassium level Due to GI loss, had multiple episodes of diarrhea, loose bowel movements Potassium replaced aggressively Close monitoring of BMP Nephrology consult appreciated (5) Hypomagnesemia: Normal level today Due to GI loss, replaced, continue to monitor electrolytes (6) Diarrhea: stool for C. difficile negative For PRN Imodium (7) CKD (chronic kidney disease), stage III: Cr: 1.22. Baseline Cr: 1.2 Function at baseline -Avoid nephrotoxic agents -Monitor renal functions (8) HTN (hypertension): BP stable -Hold benazepril and HCTZ at this time-Due to dehydration, ongoing diarrhea -Continue metoprolol -Labetalol prn -. ACEi and HCTZ will be resumed tomorrow if electrolytes and renal function remained stable (9) HLD (hyperlipidemia): -Continue atorvastatin (10) Depression: -Continue sertraline, trazodone DVT Prophylaxis -Heparin SQ DNR/DNI as per discussion with pt Follows with Dr Gifford for routine care Patient will need PT OT evaluation for significant deconditioning Update given to patient's daughter Rosa over phone Family willing for inpatient rehab at [facility] as patient received rehab therapy there prior Will update case management Admission and Anticipated Discharge Date Admission Date: January 08, 2020 Subjective Still having loose bowel movements, no shortness of breath no cough no fever or chills Physical Exam Physical Exam: General: no distress, obese elderly female Head: normocephalic, atraumatic Eyes: PERRL, EOM's intact, conjunctiva non-injected, anicteric ENT: normal inspection external ears, nose, mucous membranes dry Neck: supple, trachea midline Lungs: clear, no respiratory distress, no wheezing/rhonchi/rales CV: Rapid A. fib RVR Abd: normal BS, soft, protuberant, non-tender Ext: no cyanosis, no calf tenderness Neuro: A&O to person, place, month, year, was initially unsure of day of week, no focal deficits noted, normal affect Skin: warm, dry Results & Data Results & Data ([facility]) Vital Signs (Past 12 Hours) Vital Signs Temp Pulse Pulse Pulse Resp BP Pulse Ox 01/13/20 15:49 36.6 C 115 H 19 135/60 93 01/13/20 11:13 36.6 C 120 H 19 141/85 H 93 01/13/20 09:43 121 H 01/13/20 08:00 Pulse Ox 01/13/20 15:49 01/13/20 11:13 01/13/20 09:43 01/13/20 08:00 93 (1) UTI (urinary tract infection) Hematuria presence: without hematuria Urinary tract infection type: acute cystitis Qualified Code(s): N30.00 - Acute cystitis without hematuria
[2020-01-13] MEDS: TRAZODONE HCL 100 MG TAB PO PRN (20:12)
[2020-01-13] MEDS: OXYCODONE/ACETAMINOPHEN 5mg/325mg TAB PO PRN (23:09)
[2020-01-14] MEDS: METOPROLOL TARTRATE 25 MG TAB PO SCH ×4 (04:52→23:18)
[2020-01-14 05:58] LABS: BUN Creatinine Ratio 16.6 (10-20); Calcium 8.9 mg/dl (8.5-10.1); Creatinine Clr Calc Pharmacy 48.1 ml/min; Est GFR (African American) 55.1; Est GFR (Non-African American) 47.6; Magnesium 1.9 mg/dl (1.8-2.4); Potassium 4.6 mmol/L (3.5-5.1)
[2020-01-14 06:16] LABS: INR 1.2 (0.9-1.1); Partial Thromboplastin Ratio 2.4; Prothrombin Time 12.5 Seconds (9.0-12.0)
[2020-01-14 06:19] LABS: Partial Thromboplastin Time 67.6 Seconds (21.0-31.0)
[2020-01-14] MEDS: POTASSIUM CHLORIDE 20 MEQ TABCR PO SCH ×2 (08:05→20:43)
[2020-01-14] MEDS: SERTRALINE HCL 50 MG TABLET PO SCH (08:05)
[2020-01-14] MEDS: AMIODARONE 200 MG TAB PO SCH ×3 (08:05→16:09)
[2020-01-14] MEDS: LOPERAMIDE HCL 2 MG CAP PO PRN (08:05)
[2020-01-14] MEDS: ATORVASTATIN 40 MG TAB PO SCH (08:05)
[2020-01-14] MEDS: ASCORBIC ACID 500 MG TAB PO SCH (08:06)
[2020-01-14] MEDS: cephALEXin 250 MG CAP PO SCH ×4 (08:06→20:42)
[2020-01-14] MEDS: OXYCODONE/ACETAMINOPHEN 5mg/325mg TAB PO PRN ×2 (08:06→20:41)
[2020-01-14] MEDS: LACTOBACILLUS ACIDOPHILUS (FLORANEX) TAB PO SCH ×4 (08:06→20:43)
--- NOTE | 2020-01-14 13:18 | Cardiology Progress Note ---
Date of Service January 14, 2020 Assessment & Plan (1) Hypokalemia: (2) Hypomagnesemia: (3) UTI (urinary tract infection): (4) Diarrhea: (5) Weakness: (6) Atrial fibrillation: (7) Breast mass: The patient has several issues including electrolyte abnormalities, UTI and now the finding of a breast mass which is potentially cancerous. I would continue to load with Coumadin until her INR is therapeutic then DC the heparin. She remains in persistent atrial fibrillation. I would continue a loading dose of amiodarone. Subjective Patient is sitting in a chair and comfortable. No new cardiac complaints. Review of Systems Review of Systems: All systems reviewed & are unremarkable except as noted in HPI & below Nothing additional to add. Physical Exam Physical Exam: General: no acute distress and stated age Head: normocephalic, no masses, lesions, tenderness or abnormalities Eyes: conjunctiva are pink and non-injected, sclera clear Neck: supple, no adenopathy, no bruits, normal jugular venous pulse, no hepatojugular reflux Chest: normal shape and normal respiratory effort Lungs: clear to auscultation and percussion Cardiac Exam: - irregular rate & rhythm, no murmurs gallops or rubs - normal S1, normal S2 Pulses: 2(+) throughout Abdomen: abdomen soft, non-tender, no abnormal masses and no hepatosplenomegaly Musculoskeletal: no gait disturbance, no joint inflammation, no deforming arthritis Extremities: no edema and no cyanosis Neuro: grossly normal exam Results & Data Vital Signs (Past 12 Hours) Vital Signs Temp Pulse Pulse Resp BP Pulse Ox 01/14/20 11:59 36.5 C 122 H 18 125/68 90 01/14/20 07:56 36.5 C 114 H 20 121/79 90 01/14/20 04:45 36.6 C 113 H 16 146/83 H 93 Laboratory Results Laboratory Results - last 24 hr 01/13/20 01/14/20 01/14/20 14:19 05:26 05:26 PT 12.5 H INR 1.2 H APTT 63.4 H* 67.6 H* PTT Ratio 2.3 2.4 Sodium 139 Potassium 4.6 Chloride 108 H Carbon Dioxide 26 Anion Gap 5.0 BUN 18 Creatinine 1.09 Est Cr Clr Drug Dosing 48.1 Est GFR ( Amer) 55.1 Est GFR (Non-Af Amer) 47.6 BUN/Creatinine Ratio 16.6 Glucose 126 H Calcium 8.9 Magnesium 1.9 01/14/20 12:50 PT INR APTT Pending PTT Ratio Pending Sodium Potassium Chloride Carbon Dioxide Anion Gap BUN Creatinine Est Cr Clr Drug Dosing Est GFR ( Amer) Est GFR (Non-Af Amer) BUN/Creatinine Ratio Glucose Calcium Magnesium Medications Administered Current Inpatient Medications Acetaminophen (Tylenol) 650 mg PO Q4H PRN PRN Reason: Pain or Fever Stop: 02/07/20 18:18 Last Admin: 01/09/20 02:44 Dose: 650 mg Documented by: Amiodarone HCl (Cordarone) 200 mg PO TIDM [facility] Stop: 02/11/20 11:59 Last Admin: 01/14/20 11:23 Dose: 200 mg Documented by: Ascorbic Acid (Vitamin C) 1,000 mg PO DAILY [facility] Stop: 02/08/20 08:59 Last Admin: 01/14/20 08:06 Dose: 1,000 mg Documented by: Atorvastatin Calcium (Lipitor) 40 mg PO DAILY [facility] Stop: 02/08/20 08:59 Last Admin: 01/14/20 08:05 Dose: 40 mg Documented by: Calamine/Phenol (Calmoseptine) 1 appln EXT UD PRN PRN Reason: SOILING Stop: 02/12/20 10:44 Cephalexin HCl (Keflex) 250 mg PO QID [facility]; Protocol Stop: 01/18/20 08:59 Last Admin: 01/14/20 12:01 Dose: 250 mg Documented by: Heparin Sodium/Dextrose (Heparin Sodium/Dextrose) 25,000 units in 500 mls @ 27 mls/hr IV .[id number] [facility]; Protocol Stop: 02/09/20 16:44 Last Titration: 01/14/20 07:06 Dose: 1,350 units/hr, 27 mls/hr Documented by: Ioversol (Optiray 320 100ml) 94 ml IV ONCE PRN PRN Reason: Interaction Checking Stop: 01/17/20 10:07 Last Admin: 01/13/20 10:09 Dose: 94 ml Documented by: Lactobacillus Acidophilus (Floranex) 4 tab PO QIDM [facility] Stop: 02/09/20 20:59 Last Admin: 01/14/20 11:23 Dose: 4 tab Documented by: Loperamide HCl (Imodium) 2 mg PO Q6 PRN PRN Reason: Diarrhea Stop: 02/08/20 16:25 Last Admin: 01/14/20 08:05 Dose: 2 mg Documented by: Metoprolol Tartrate (Lopressor) 25 mg PO Q6H [facility] Stop: 02/09/20 16:59 Last Admin: 01/14/20 11:23 Dose: 25 mg Documented by: Ondansetron HCl (Zofran) 4 mg IV Q6H PRN PRN Reason: Nausea Stop: 02/07/20 18:18 Oxycodone/Acetaminophen (Percocet 5mg/325mg) 1 tab PO Q6 PRN PRN Reason: Pain Stop: 01/22/20 20:10 Last Admin: 01/14/20 08:06 Dose: 1 tab Documented by: Potassium Chloride (Klor-Con M20) 20 meq PO BID [facility]AH Stop: 02/08/20 20:59 Last Admin: 01/14/20 08:05 Dose: 20 meq Documented by: Sertraline HCl (Zoloft) 150 mg PO DAILY [facility] Stop: 02/08/20 08:59 Last Admin: 01/14/20 08:05 Dose: 150 mg Documented by: Trazodone HCl (Desyrel) 100 mg PO HS PRN PRN Reason: Insomnia Stop: 02/07/20 20:10 Last Admin: 01/13/20 20:12 Dose: 100 mg Documented by: Warfarin Sodium (Coumadin) 5 mg PO DAILY@1600 [facility] Stop: 02/11/20 15:59 Last Admin: 01/13/20 16:05 Dose: 5 mg Documented by: (1) UTI (urinary tract infection) Hematuria presence: without hematuria Urinary tract infection type: acute cystitis Qualified Code(s): N30.00 - Acute cystitis without hematuria
[2020-01-14 13:24] LABS: Partial Thromboplastin Ratio 2.5
--- NOTE | 2020-01-14 13:54 | Hospitalist Progress Note ---
Date of Service January 14, 2020 Assessment & Plan (1) Atrial fibrillation: Paroxysmal A. fib with RVR, new diagnosis during this hospital admission Patient input from cardiology, patient started with amiodarone, IV Cardizem discontinued Remains in A. fib with rate controlled Patient continued on p.o. amiodarone loading dose Start with IV heparin weight-based protocol anticoagulation/Coumadin for long- term stroke prophylaxis COVID-19 test, droplet and airborne precaution discontinued Echocardiogram : Shows no wall motion abnormality, ejection fraction 55-60% mildly dilated right ventricle with reduced right ventricular systolic failure suggestive of right heart failure Continue to monitor in telemetry New diagnosis of right breast mass CT abdomen pelvis with IV contrast shows possible new diagnosis of right-sided breast cancer, as documented on previous note Patient will need outpatient follow-up established for breast mammogram, breast biopsy Contacted [facility] breast cancer center, Discussed case briefly with breast cancer radiologist Dr. Ugalde All the diagnosis tests for breast cancer, mammogram, breast mass biopsy needs to be done as outpatient Breast cancer center coordinator Ethel rebecca Phone number #[phone] [facility] will contact patient and patient family to schedule outpatient follow-ups and diagnostic testing once patient is discharged from [facility] (2) Weakness: Gradually improving Weakness probable secondary to UTI, electrolyte abnormality as per below -Fall precautions -PT/OT - (3) UTI (urinary tract infection): WBC: 12, UA: 3+ leuk est, >30 WBC, 5-10 RBC, 10-20 epithel, 3+bacteria - -Will continue Rocephin Urine culture: E. coli, sensitive to Rocephin, ciprofloxacin Given cardiac arrhythmia will try to avoid quinolones Continue Rocephin for now, Before to discharge will be changed to p.o. Keflex Given recurrent UTI, will treat for at least 10 days of therapy Patient had recurrent urine tract infection at least 4 episodes in the last 6 months 3 of pelvic radiation treatment for endometrial carcinoma, chronic urinary incontinence/ Urology evaluation requested appreciate input, Dias catheter drainage for complete evacuation of urinary bladder, Renal ultrasound: Kidneys demonstrate cortical atrophy. No hydronephrosis is seen on right/there is mild to moderate left hydronephrosis/bladder is decompressed around a Dias catheter CT abdomen pelvis: Mild/moderate left-sided hydroureteronephrosis with narrowing of the distal left ureter adjacent to surgical clips within the left hemipelvis. No obstructing mass or calculus identified. 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 Urology team needs to be updated (4) Hypokalemia: Replace, continue to monitor Due to GI loss, had multiple episodes of diarrhea, loose bowel movements Potassium replaced aggressively Close monitoring of BMP Nephrology consult appreciated (5) Hypomagnesemia: Normal level today Due to GI loss, replaced, continue to monitor electrolytes (6) Diarrhea: stool for C. difficile negative For PRN Imodium (7) CKD (chronic kidney disease), stage III: Cr: 1.22. Baseline Cr: 1.2 Function at baseline -Avoid nephrotoxic agents -Monitor renal functions (8) HTN (hypertension): BP stable -Hold benazepril and HCTZ at this time-Due to dehydration, ongoing diarrhea -Continue metoprolol -Labetalol prn -. ACEi and HCTZ will be resumed tomorrow if electrolytes and renal function remained stable (9) HLD (hyperlipidemia): -Continue atorvastatin (10) Depression: -Continue sertraline, trazodone DVT Prophylaxis -Heparin SQ DNR/DNI as per discussion with pt Follows with Dr Gifford for routine care Patient will need PT OT evaluation for significant deconditioning Update given to patient's daughter Rosa over phone Family willing for inpatient rehab at [facility] as patient received rehab therapy there prior Will update case management Admission and Anticipated Discharge Date Admission Date: January 08, 2020 Subjective Generalized weakness, no fever or chills Physical Exam Physical Exam: General: no distress, obese elderly female Head: normocephalic, atraumatic Eyes: PERRL, EOM's intact, conjunctiva non-injected, anicteric ENT: normal inspection external ears, nose, mucous membranes dry Neck: supple, trachea midline Lungs: clear, no respiratory distress, no wheezing/rhonchi/rales CV: Rapid A. fib RVR Abd: normal BS, soft, protuberant, non-tender Ext: no cyanosis, no calf tenderness Neuro: A&O to person, place, month, year, was initially unsure of day of week, no focal deficits noted, normal affect Skin: warm, dry Results & Data Results & Data ([facility]) Vital Signs (Past 12 Hours) Vital Signs Temp Pulse Pulse Resp BP Pulse Ox 01/14/20 11:59 36.5 C 122 H 18 125/68 90 01/14/20 07:56 36.5 C 114 H 20 121/79 90 01/14/20 04:45 36.6 C 113 H 16 146/83 H 93 (1) UTI (urinary tract infection) Hematuria presence: without hematuria Urinary tract infection type: acute cystitis Qualified Code(s): N30.00 - Acute cystitis without hematuria
[2020-01-14] MEDS: WARFARIN SOD 5 MG TAB PO SCH (16:09)
[2020-01-14] MEDS: HEPARIN SODIUM/DEXTROSE 25,000 UNITS/500 ML BAG IV SCH (17:33)
[2020-01-14 19:55] LABS: Partial Thromboplastin Ratio 2.3
[2020-01-14 19:58] LABS: Partial Thromboplastin Time 65.3 Seconds (21.0-31.0)
[2020-01-14] MEDS: TRAZODONE HCL 100 MG TAB PO PRN (20:41)
[2020-01-15] MEDS: METOPROLOL TARTRATE 25 MG TAB PO SCH (04:29)
[2020-01-15 07:06] LABS: INR 1.5 (0.9-1.1); Partial Thromboplastin Ratio 3.1; Prothrombin Time 15.9 Seconds (9.0-12.0)
[2020-01-15 07:44] LABS: Partial Thromboplastin Time 86.8 Seconds (21.0-31.0)
[2020-01-15] MEDS: ENALAPRIL MALEATE 10 MG TAB PO SCH (08:15)
[2020-01-15] MEDS: POTASSIUM CHLORIDE 20 MEQ TABCR PO SCH ×2 (08:15→19:52)
[2020-01-15] MEDS: LACTOBACILLUS ACIDOPHILUS (FLORANEX) TAB PO SCH ×4 (08:15→19:50)
[2020-01-15] MEDS: hydroCHLOROthiazide 25 MG TAB PO SCH (08:16)
[2020-01-15] MEDS: LOPERAMIDE HCL 2 MG CAP PO PRN (08:16)
[2020-01-15] MEDS: ASCORBIC ACID 500 MG TAB PO SCH (08:16)
[2020-01-15] MEDS: AMIODARONE 200 MG TAB PO SCH ×2 (08:17→17:07)
[2020-01-15] MEDS: SERTRALINE HCL 50 MG TABLET PO SCH (08:18)
[2020-01-15] MEDS: ATORVASTATIN 40 MG TAB PO SCH (08:18)
[2020-01-15] MEDS: HEPARIN SODIUM/DEXTROSE 25,000 UNITS/500 ML BAG IV SCH ×2 (08:37→13:04)
--- NOTE | 2020-01-15 10:58 | Cardiology Progress Note ---
Date of Service January 15, 2020 Assessment & Plan (1) Atrial fibrillation: (2) UTI (urinary tract infection): (3) Endometrial adenocarcinoma: (4) Breast mass: The patient is clinically stable. I am adjusting her beta-yoon to improve her heart rates as she remains in persistent atrial fibrillation. Her INR today is 1.5 so would continue the heparin through today and hopefully by tomorrow it can be discontinued. I will also adjust her amiodarone dose. Subjective The patient is resting comfortably with no new cardiac complaints. Review of Systems Review of Systems: All systems reviewed & are unremarkable except as noted in HPI & below Nothing additional to add. Physical Exam Physical Exam: General: no acute distress and stated age Head: normocephalic, no masses, lesions, tenderness or abnormalities Eyes: conjunctiva are pink and non-injected, sclera clear Neck: supple, no adenopathy, no bruits, normal jugular venous pulse, no hepatojugular reflux Chest: normal shape and normal respiratory effort Lungs: clear to auscultation and percussion Cardiac Exam: -Irregular rate & rhythm, no murmurs gallops or rubs - normal S1, normal S2 Pulses: 2(+) throughout Abdomen: abdomen soft, non-tender, no abnormal masses and no hepatosplenomegaly Musculoskeletal: no gait disturbance, no joint inflammation, no deforming arthritis Extremities: no edema and no cyanosis Neuro: grossly normal exam Results & Data Vital Signs (Past 12 Hours) Vital Signs Temp Pulse Pulse Pulse Resp BP Pulse Ox 01/15/20 08:05 36.6 C 104 H 17 140/95 92 01/15/20 03:29 36.5 C 106 H 18 154/95 H 93 01/15/20 02:52 105 H 01/14/20 23:21 36.6 C 109 H 18 137/81 95 Laboratory Results Laboratory Results - last 24 hr 01/14/20 01/14/20 01/15/20 12:50 19:23 06:15 PT 15.9 H INR 1.5 H APTT 70.0 H* 65.3 H* 86.8 H* PTT Ratio 2.5 2.3 3.1 Medications Administered Current Inpatient Medications Acetaminophen (Tylenol) 650 mg PO Q4H PRN PRN Reason: Pain or Fever Stop: 02/07/20 18:18 Last Admin: 01/09/20 02:44 Dose: 650 mg Documented by: Amiodarone HCl (Cordarone) 200 mg PO BIDM [facility] Stop: 02/14/20 16:59 Ascorbic Acid (Vitamin C) 1,000 mg PO DAILY [facility] Stop: 02/08/20 08:59 Last Admin: 01/15/20 08:16 Dose: 1,000 mg Documented by: Atorvastatin Calcium (Lipitor) 40 mg PO DAILY [facility] Stop: 02/08/20 08:59 Last Admin: 01/15/20 08:18 Dose: 40 mg Documented by: Calamine/Phenol (Calmoseptine) 1 appln EXT UD PRN PRN Reason: SOILING Stop: 02/12/20 10:44 Cephalexin HCl (Keflex) 250 mg PO QID [facility]; Protocol Stop: 01/18/20 08:59 Last Admin: 01/14/20 20:42 Dose: 250 mg Documented by: Enalapril Maleate (Vasotec) 10 mg PO DAILY [facility]; Protocol Stop: 02/14/20 08:59 Last Admin: 01/15/20 08:15 Dose: 10 mg Documented by: Hydrochlorothiazide (Hctz) 25 mg PO DAILY [facility] Stop: 02/14/20 08:59 Last Admin: 01/15/20 08:16 Dose: 25 mg Documented by: Heparin Sodium/Dextrose (Heparin Sodium/Dextrose) 25,000 units in 500 mls @ 23 mls/hr IV .[id number] [facility]; Protocol Stop: 02/09/20 16:44 Last Admin: 01/15/20 08:37 Dose: Not Given Documented by: Ioversol (Optiray 320 100ml) 94 ml IV ONCE PRN PRN Reason: Interaction Checking Stop: 01/17/20 10:07 Last Admin: 01/13/20 10:09 Dose: 94 ml Documented by: Lactobacillus Acidophilus (Floranex) 4 tab PO QIDM [facility] Stop: 02/09/20 20:59 Last Admin: 01/15/20 08:15 Dose: 4 tab Documented by: Loperamide HCl (Imodium) 2 mg PO Q6 PRN PRN Reason: Diarrhea Stop: 02/08/20 16:25 Last Admin: 01/15/20 08:16 Dose: 2 mg Documented by: Metoprolol Tartrate (Lopressor) 50 mg PO Q8 [facility] Stop: 02/14/20 13:59 Ondansetron HCl (Zofran) 4 mg IV Q6H PRN PRN Reason: Nausea Stop: 02/07/20 18:18 Oxycodone/Acetaminophen (Percocet 5mg/325mg) 1 tab PO Q6 PRN PRN Reason: Pain Stop: 01/22/20 20:10 Last Admin: 01/14/20 20:41 Dose: 1 tab Documented by: Potassium Chloride (Klor-Con M20) 20 meq PO BID [facility] Stop: 02/08/20 20:59 Last Admin: 01/15/20 08:15 Dose: 20 meq Documented by: Sertraline HCl (Zoloft) 150 mg PO DAILY [facility] Stop: 02/08/20 08:59 Last Admin: 01/15/20 08:18 Dose: 150 mg Documented by: Trazodone HCl (Desyrel) 100 mg PO HS PRN PRN Reason: Insomnia Stop: 02/07/20 20:10 Last Admin: 01/14/20 20:41 Dose: 100 mg Documented by: Warfarin Sodium (Coumadin) 5 mg PO DAILY@1600 [facility] Stop: 02/11/20 15:59 Last Admin: 01/14/20 16:09 Dose: 5 mg Documented by: (1) UTI (urinary tract infection) Hematuria presence: without hematuria Urinary tract infection type: acute cystitis Qualified Code(s): N30.00 - Acute cystitis without hematuria
[2020-01-15] MEDS: cephALEXin 250 MG CAP PO SCH ×4 (11:43→19:51)
[2020-01-15] MEDS: METOPROLOL TARTRATE 50 MG TAB PO SCH ×2 (13:03→19:53)
[2020-01-15 14:50] LABS: Partial Thromboplastin Time 57.9 Seconds (21.0-31.0)
[2020-01-15] MEDS: WARFARIN SOD 5 MG TAB PO SCH (17:19)
[2020-01-15 18:39] LABS: Partial Thromboplastin Ratio 2.1
--- NOTE | 2020-01-15 19:23 | Hospitalist Progress Note ---
Date of Service January 15, 2020 Assessment & Plan (1) Atrial fibrillation: (1) Atrial fibrillation: per Dr. Veliz's notes: Paroxysmal A. fib with RVR, new diagnosis during this hospital admission Patient input from cardiology, patient started with amiodarone, IV Cardizem discontinued COVID-19 test, droplet and airborne precaution discontinued Echocardiogram : Shows no wall motion abnormality, ejection fraction 55-60% mildly dilated right ventricle with reduced right ventricular systolic failure suggestive of right heart failure Amiodarone and Metoprolol titration in progress also on Coumadin with Heparin bridge monitor closely New diagnosis of right breast mass per Dr. Veliz's notes: CT abdomen pelvis with IV contrast shows possible new diagnosis of right-sided breast cancer, as documented on previous note Patient will need outpatient follow-up established for breast mammogram, breast biopsy Contacted [facility] breast cancer center, Discussed case briefly with breast cancer radiologist Dr. Ugalde All the diagnosis tests for breast cancer, mammogram, breast mass biopsy needs to be done as outpatient Breast cancer center coordinator Ethel fernandez Phone number #[phone] Given patient's [facility] Care center will contact patient and patient family to schedule outpatient follow-ups and diagnostic testing once patient is discharged from [facility] (2) Weakness: Gradually improving Weakness probable secondary to UTI, electrolyte abnormality as per below -Fall precautions -PT/OT (3) UTI (urinary tract infection): WBC: 12, UA: 3+ leuk est, >30 WBC, 5-10 RBC, 10-20 epithel, 3+bacteria Urine culture: E. coli, sensitive to Rocephin, ciprofloxacin Given cardiac arrhythmia will try to avoid quinolones given Ceftriaxone--> transitioned to Cephalexin will treat for at least 10 days of therapy Patient had recurrent urine tract infection at least 4 episodes in the last 6 months 3 of pelvic radiation treatment for endometrial carcinoma, chronic urinary incontinence/ Urology evaluation requested appreciate input, Dias catheter drainage for complete evacuation of urinary bladder, Renal ultrasound: Kidneys demonstrate cortical atrophy. No hydronephrosis is seen on right/there is mild to moderate left hydronephrosis/bladder is decompressed around a Dias catheter CT abdomen pelvis: Mild/moderate left-sided hydroureteronephrosis with narrowing of the distal left ureter adjacent to surgical clips within the left hemipelvis. No obstructing mass or calculus identified. 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 Urology team needs to be updated (4) Hypokalemia: Replace, continue to monitor Due to GI loss, had multiple episodes of diarrhea, loose bowel movements Potassium replaced aggressively resolved Nephrology consulted (5) Hypomagnesemia: resolved (6) Diarrhea: PRN Imodium (7) CKD (chronic kidney disease), stage III: Cr: 1.22. Baseline Cr: 1.2 stable (8) HTN (hypertension): BP stable -Hold benazepril and HCTZ at this time-Due to dehydration -Continue metoprolol -Labetalol prn BP stable (9) HLD (hyperlipidemia): -Continue atorvastatin (10) Depression: -Continue sertraline, trazodone DVT Prophylaxis -Heparin SQ DNR/DNI as per discussion with pt Follows with Dr Gifford for routine care Patient will need PT OT evaluation for significant deconditioning Family willing for inpatient rehab at [facility] as patient received rehab therapy there prior Admission and Anticipated Discharge Date Admission Date: January 08, 2020 Subjective ff up for atrial fibrillation seen resting in bed, comfortable watching TV, in good spirits states she feels fine overall denies chest pain, dyspnea, palpitations no bleeding reports leg cramping at night Review of Systems Review of Systems: All systems reviewed & are unremarkable except as noted in HPI & below Physical Exam Physical Exam: General- oriented x 3, not in distress, speaks in sentences with no effort or accessory muscle use Head- atraumatic Eyes- PERRL, EOMI, anicteric ENT- oropharynx clear Neck- supple, no JVD, no adenopathy, no thyromegaly; carotids +2/2, no bruits appreciated Lungs- clear to auscultation bilaterally, no rales/wheezes Heart- mild tachycardia, irregularly irregular rhythm; no murmur, no gallop, no rub appreciated Abdomen- normal bowel sounds, nondistended, soft, nontender, no masses or hepatosplenomegaly Extremities- no pretibial edema, no calf tenderness; peripheral pulses intact Neuro- alert, oriented x 3; CN 2-12 grossly intact; motor 5/5 bilaterally;sensation 100% on all extremities; no other gross focal neurologic deficits Skin- warm & dry Results & Data Results & [facility] Vital Signs (Past 12 Hours) Vital Signs Temp Pulse Pulse Resp BP Pulse Ox 01/15/20 15:34 37.0 C 108 H 20 112/74 93 01/15/20 08:05 36.6 C 104 H 17 140/95 92
[2020-01-15] MEDS: OXYCODONE/ACETAMINOPHEN 5mg/325mg TAB PO PRN (19:52)
[2020-01-15] MEDS: TRAZODONE HCL 100 MG TAB PO PRN (19:56)
[2020-01-16] MEDS: METOPROLOL TARTRATE 50 MG TAB PO SCH ×3 (06:07→19:55)
[2020-01-16 08:08] LABS: Partial Thromboplastin Ratio 2.9
[2020-01-16 08:13] LABS: Partial Thromboplastin Time 81.1 Seconds (21.0-31.0)
[2020-01-16] MEDS: POTASSIUM CHLORIDE 20 MEQ TABCR PO SCH ×2 (08:32→19:55)
[2020-01-16] MEDS: LOPERAMIDE HCL 2 MG CAP PO PRN ×2 (08:32→12:16)
[2020-01-16] MEDS: cephALEXin 250 MG CAP PO SCH ×4 (08:32→19:55)
[2020-01-16] MEDS: AMIODARONE 200 MG TAB PO SCH (08:33)
[2020-01-16] MEDS: ATORVASTATIN 40 MG TAB PO SCH (08:33)
[2020-01-16] MEDS: ASCORBIC ACID 500 MG TAB PO SCH (08:33)
[2020-01-16] MEDS: hydroCHLOROthiazide 25 MG TAB PO SCH (08:33)
[2020-01-16] MEDS: SERTRALINE HCL 50 MG TABLET PO SCH (08:33)
[2020-01-16] MEDS: ENALAPRIL MALEATE 10 MG TAB PO SCH (08:34)
[2020-01-16] MEDS: LACTOBACILLUS ACIDOPHILUS (FLORANEX) TAB PO SCH ×4 (08:34→19:55)
[2020-01-16] MEDS: HEPARIN SODIUM/DEXTROSE 25,000 UNITS/500 ML BAG IV SCH ×2 (12:14→14:46)
[2020-01-16 12:16] LABS: INR 1.9 (0.9-1.1); Prothrombin Time 19.2 Seconds (9.0-12.0)
[2020-01-16 14:36] LABS: Partial Thromboplastin Time 55.2 Seconds (21.0-31.0)
[2020-01-16] MEDS: WARFARIN SOD 5 MG TAB PO SCH (15:21)
--- NOTE | 2020-01-16 15:38 | Cardiology Progress Note ---
Date of Service January 16, 2020 Assessment & Plan (1) Atrial fibrillation: (2) UTI (urinary tract infection): (3) Endometrial adenocarcinoma: (4) Breast mass: The patient's INR is therapeutic I believe the heparin can be discontinued. At present the patient should be treated with rate control for her atrial fibrillation and continued anticoagulation after discharge. Subjective The patient has no cardiac complaints today but did have several episodes of diarrhea Review of Systems Review of Systems: All systems reviewed & are unremarkable except as noted in HPI & below Nothing additional to add. Physical Exam Physical Exam: General: no acute distress and stated age Head: normocephalic, no masses, lesions, tenderness or abnormalities Eyes: conjunctiva are pink and non-injected, sclera clear Neck: supple, no adenopathy, no bruits, normal jugular venous pulse, no hepatojugular reflux Chest: normal shape and normal respiratory effort Lungs: clear to auscultation and percussion Cardiac Exam: - irregular rate & rhythm, no murmurs gallops or rubs - normal S1, normal S2 Pulses: 2(+) throughout Abdomen: abdomen soft, non-tender, no abnormal masses and no hepatosplenomegaly Musculoskeletal: no gait disturbance, no joint inflammation, no deforming arthritis Extremities: no edema and no cyanosis Neuro: grossly normal exam Results & Data Vital Signs (Past 12 Hours) Vital Signs Temp Pulse Pulse Resp BP Pulse Ox 01/16/20 15:32 36.5 C 118 H 23 124/72 93 01/16/20 12:04 36.8 C 114 H 18 141/73 H 92 01/16/20 08:08 37.1 C 108 H 19 119/92 91 Laboratory Results Laboratory Results - last 24 hr 01/15/20 01/16/20 01/16/20 13:58 07:35 07:35 PT 19.2 H INR 1.9 H APTT 81.1 H* PTT Ratio 2.1 2.9 01/16/20 14:06 PT INR APTT 55.2 H* PTT Ratio 2.0 Medications Administered Current Inpatient Medications Acetaminophen (Tylenol) 650 mg PO Q4H PRN PRN Reason: Pain or Fever Stop: 02/07/20 18:18 Last Admin: 01/09/20 02:44 Dose: 650 mg Documented by: Amiodarone HCl (Cordarone) 200 mg PO BIDM [facility] Stop: 02/14/20 16:59 Last Admin: 01/16/20 08:33 Dose: 200 mg Documented by: Ascorbic Acid (Vitamin C) 1,000 mg PO DAILY [facility] Stop: 02/08/20 08:59 Last Admin: 01/16/20 08:33 Dose: 1,000 mg Documented by: Atorvastatin Calcium (Lipitor) 40 mg PO DAILY [facility] Stop: 02/08/20 08:59 Last Admin: 01/16/20 08:33 Dose: 40 mg Documented by: Calamine/Phenol (Calmoseptine) 1 appln EXT UD PRN PRN Reason: SOILING Stop: 02/12/20 10:44 Cephalexin HCl (Keflex) 250 mg PO QID [facility]; Protocol Stop: 01/18/20 08:59 Last Admin: 01/16/20 14:23 Dose: 250 mg Documented by: Enalapril Maleate (Vasotec) 10 mg PO DAILY [facility]; Protocol Stop: 02/14/20 08:59 Last Admin: 01/16/20 08:34 Dose: 10 mg Documented by: Hydrochlorothiazide (Hctz) 25 mg PO DAILY [facility] Stop: 02/14/20 08:59 Last Admin: 01/16/20 08:33 Dose: 25 mg Documented by: Ioversol (Optiray 320 100ml) 94 ml IV ONCE PRN PRN Reason: Interaction Checking Stop: 01/17/20 10:07 Last Admin: 01/13/20 10:09 Dose: 94 ml Documented by: Lactobacillus Acidophilus (Floranex) 4 tab PO QIDM [facility] Stop: 02/09/20 20:59 Last Admin: 01/16/20 12:15 Dose: 4 tab Documented by: Loperamide HCl (Imodium) 2 mg PO Q6 PRN PRN Reason: Diarrhea Stop: 02/08/20 16:25 Last Admin: 01/16/20 12:16 Dose: 2 mg Documented by: Metoprolol Tartrate (Lopressor) 50 mg PO Q8 [facility] Stop: 02/14/20 13:59 Last Admin: 01/16/20 14:23 Dose: 50 mg Documented by: Ondansetron HCl (Zofran) 4 mg IV Q6H PRN PRN Reason: Nausea Stop: 02/07/20 18:18 Oxycodone/Acetaminophen (Percocet 5mg/325mg) 1 tab PO Q6 PRN PRN Reason: Pain Stop: 01/22/20 20:10 Last Admin: 01/15/20 19:52 Dose: 1 tab Documented by: Potassium Chloride (Klor-Con M20) 20 meq PO BID [facility] Stop: 02/08/20 20:59 Last Admin: 01/16/20 08:32 Dose: 20 meq Documented by: Sertraline HCl (Zoloft) 150 mg PO DAILY [facility] Stop: 02/08/20 08:59 Last Admin: 01/16/20 08:33 Dose: 150 mg Documented by: Trazodone HCl (Desyrel) 100 mg PO HS PRN PRN Reason: Insomnia Stop: 02/07/20 20:10 Last Admin: 01/15/20 19:56 Dose: 100 mg Documented by: Warfarin Sodium (Coumadin) 5 mg PO DAILY@1600 [facility] Stop: 02/11/20 15:59 Last Admin: 01/16/20 15:21 Dose: 5 mg Documented by: (1) UTI (urinary tract infection) Hematuria presence: without hematuria Urinary tract infection type: acute cystitis Qualified Code(s): N30.00 - Acute cystitis without hematuria
--- NOTE | 2020-01-16 16:38 | Hospitalist Progress Note ---
Date of Service January 16, 2020 Assessment & Plan (1) Atrial fibrillation: (1) Atrial fibrillation: per Dr. Veliz's notes: Paroxysmal A. fib with RVR, new diagnosis during this hospital admission Patient input from cardiology, patient started with amiodarone, IV Cardizem discontinued COVID-19 test, droplet and airborne precaution discontinued Echocardiogram : Shows no wall motion abnormality, ejection fraction 55-60% mildly dilated right ventricle with reduced right ventricular systolic failure suggestive of right heart failure Amiodarone and Metoprolol titration in progress also on Coumadin , INR 1.9 monitor closely Acute diastolic CHF in the setting of new onset A fib given IV Lasix now euvolemic New diagnosis of right breast mass per Dr. Veliz's notes: CT abdomen pelvis with IV contrast shows possible new diagnosis of right-sided breast cancer, as documented on previous note Patient will need outpatient follow-up established for breast mammogram, breast biopsy Contacted [facility] breast cancer center, Discussed case briefly with breast cancer radiologist Dr. Ugalde All the diagnosis tests for breast cancer, mammogram, breast mass biopsy needs to be done as outpatient Breast cancer center coordinator Ethel rebecca Phone number #[phone] Given patient's [facility] Care center will contact patient and patient family to schedule outpatient follow-ups and diagnostic testing once patient is discharged from [facility] (2) Weakness: Gradually improving Weakness probable secondary to UTI, electrolyte abnormality as per below -Fall precautions -PT/OT (3) UTI (urinary tract infection): WBC: 12, UA: 3+ leuk est, >30 WBC, 5-10 RBC, 10-20 epithel, 3+bacteria Urine culture: E. coli, sensitive to Rocephin, ciprofloxacin Given cardiac arrhythmia will try to avoid quinolones given Ceftriaxone--> transitioned to Cephalexin will treat for at least 10 days of therapy Patient had recurrent urine tract infection at least 4 episodes in the last 6 months 3 of pelvic radiation treatment for endometrial carcinoma, chronic urinary incontinence Urology evaluation requested appreciate input Dias catheter drainage for complete evacuation of urinary bladder Renal ultrasound: Kidneys demonstrate cortical atrophy. No hydronephrosis is seen on right/there is mild to moderate left hydronephrosis/bladder is decompressed around a Dias catheter CT abdomen pelvis: Mild/moderate left-sided hydroureteronephrosis with narrowing of the distal left ureter adjacent to surgical clips within the left hemipelvis. No obstructing mass or calculus identified. 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 Urology team needs to be updated (4) Hypokalemia: Due to GI loss, had multiple episodes of diarrhea, loose bowel movements Potassium replaced aggressively resolved Nephrology consulted (5) Hypomagnesemia: resolved (6) Diarrhea: PRN Imodium (7) CKD (chronic kidney disease), stage III: Cr: 1.22. Baseline Cr: 1.2 stable (8) HTN (hypertension): BP stable -Hold benazepril and HCTZ at this time-Due to dehydration -Continue metoprolol -Labetalol prn BP stable (9) HLD (hyperlipidemia): -Continue atorvastatin (10) Depression: -Continue sertraline, trazodone DVT Prophylaxis -on coumadin DNR/DNI as per discussion with pt Follows with Dr Gifford for routine care Patient will need PT OT evaluation for significant deconditioning Family willing for inpatient rehab at [facility] as patient received rehab therapy there prior Admission and Anticipated Discharge Date Admission Date: January 08, 2020 Subjective ff up for a fib, etc. seen resting in bed, watching TV states she feels fine overall denies SOB, chest pain, palpitations, dizziness no bleeding no other symptoms Review of Systems Review of Systems: All systems reviewed & are unremarkable except as noted in HPI & below Physical Exam Physical Exam: General- oriented x 3, not in distress, speaks in sentences with no effort or accessory muscle use Eyes- anicteric Neck- no JVD Lungs- clear breath sounds bilaterally, no rales/wheezes Heart- mild tachycardia low 100s, irregularly irregular rhythm; no murmurs Abdomen- normal bowel sounds, nondistended, soft, nontender Extremities- no pretibial edema, no calf tenderness Neuro- alert, oriented x 3; no gross focal neurologic deficits Skin- warm & dry Results & Data Results & Data ([facility]) Vital Signs (Past 12 Hours) Vital Signs Temp Pulse Pulse Pulse Resp BP Pulse Ox 01/16/20 15:57 126 H 01/16/20 15:32 36.5 C 118 H 23 124/72 93 01/16/20 12:04 36.8 C 114 H 18 141/73 H 92 01/16/20 08:08 37.1 C 108 H 19 119/92 91 Laboratory Results Laboratory Results - last 24 hr 01/16/20 01/16/20 01/16/20 07:35 07:35 14:06 PT 19.2 H INR 1.9 H APTT 81.1 H* 55.2 H* PTT Ratio 2.9 2.0
[2020-01-16] MEDS: OXYCODONE/ACETAMINOPHEN 5mg/325mg TAB PO PRN (19:54)
[2020-01-16] MEDS: TRAZODONE HCL 100 MG TAB PO PRN (20:28)
[2020-01-17] MEDS: METOPROLOL TARTRATE 50 MG TAB PO SCH ×4 (05:43→23:51)
[2020-01-17 06:25] LABS: INR 2.2 (0.9-1.1); Prothrombin Time 22.4 Seconds (9.0-12.0)
[2020-01-17 06:47] LABS: Calcium 9.3 mg/dl (8.5-10.1); Creatinine Clr Calc Pharmacy 42.5 ml/min; Est GFR (African American) 47.6; Est GFR (Non-African American) 41.1; Potassium 4.9 mmol/L (3.5-5.1)
[2020-01-17] MEDS: ATORVASTATIN 40 MG TAB PO SCH (10:25)
[2020-01-17] MEDS: AMIODARONE 200 MG TAB PO SCH (10:25)
[2020-01-17] MEDS: ASCORBIC ACID 500 MG TAB PO SCH (10:25)
[2020-01-17] MEDS: ENALAPRIL MALEATE 10 MG TAB PO SCH (10:26)
[2020-01-17] MEDS: SERTRALINE HCL 50 MG TABLET PO SCH (10:26)
[2020-01-17] MEDS: cephALEXin 250 MG CAP PO SCH ×4 (10:27→21:23)
[2020-01-17] MEDS: LACTOBACILLUS ACIDOPHILUS (FLORANEX) TAB PO SCH ×4 (10:28→19:52)
--- NOTE | 2020-01-17 12:07 | Cardiology Progress Note ---
Date of Service January 17, 2020 Assessment & Plan (1) Atrial fibrillation: (2) UTI (urinary tract infection): (3) Endometrial adenocarcinoma: (4) Breast mass: The patient has persistent atrial fibrillation. She is currently on amiodarone and I have been titrating her beta-yoon for better rate control. At this time I think her best options are for rate control and anticoagulation. She has additional work-up for possible breast cancer and a recent history of uterine cancer that was treated with radiation. Therefore I think conservative management at this time is indicated in regard to the atrial fibrillation. Subjective Alert and without new complaints. She had an uneventful night. Review of Systems Review of Systems: All systems reviewed & are unremarkable except as noted in HPI & below Nothing additional to add. Physical Exam Physical Exam: General: no acute distress and stated age Head: normocephalic, no masses, lesions, tenderness or abnormalities Eyes: conjunctiva are pink and non-injected, sclera clear Neck: supple, no adenopathy, no bruits, normal jugular venous pulse, no hepatojugular reflux Chest: normal shape and normal respiratory effort Lungs: clear to auscultation and percussion Cardiac Exam: - regular rate & rhythm, no murmurs gallops or rubs - normal S1, normal S2 Pulses: 2(+) throughout Abdomen: abdomen soft, non-tender, no abnormal masses and no hepatosplenomegaly Musculoskeletal: no gait disturbance, no joint inflammation, no deforming arthritis Extremities: no edema and no cyanosis Neuro: grossly normal exam Results & Data Vital Signs (Past 12 Hours) Vital Signs Temp Pulse Pulse Pulse Resp BP Pulse Ox 01/17/20 08:25 36.6 C 107 H 20 137/75 94 01/17/20 03:46 36.5 C 107 H 19 120/65 92 01/17/20 00:59 96 H Laboratory Results Laboratory Results - last 24 hr 01/16/20 01/16/20 01/17/20 07:35 14:06 05:54 PT 19.2 H INR 1.9 H APTT 55.2 H* PTT Ratio 2.0 Sodium 139 Potassium 4.9 Chloride 107 Carbon Dioxide 27 Anion Gap 5.0 BUN 16 Creatinine 1.23 H Est Cr Clr Drug Dosing 42.5 Est GFR ( Amer) 47.6 Est GFR (Non-Af Amer) 41.1 BUN/Creatinine Ratio 13.0 Glucose 114 H Calcium 9.3 01/17/20 05:54 PT 22.4 H INR 2.2 H APTT PTT Ratio Sodium Potassium Chloride Carbon Dioxide Anion Gap BUN Creatinine Est Cr Clr Drug Dosing Est GFR ( Amer) Est GFR (Non-Af Amer) BUN/Creatinine Ratio Glucose Calcium Medications Administered Current Inpatient Medications Acetaminophen (Tylenol) 650 mg PO Q4H PRN PRN Reason: Pain or Fever Stop: 02/07/20 18:18 Last Admin: 01/09/20 02:44 Dose: 650 mg Documented by: Amiodarone HCl (Cordarone) 200 mg PO DAILY [facility] Stop: 02/16/20 08:59 Last Admin: 01/17/20 10:25 Dose: 200 mg Documented by: Ascorbic Acid (Vitamin C) 1,000 mg PO DAILY [facility] Stop: 02/08/20 08:59 Last Admin: 01/17/20 10:25 Dose: 1,000 mg Documented by: Atorvastatin Calcium (Lipitor) 40 mg PO DAILY [facility] Stop: 02/08/20 08:59 Last Admin: 01/17/20 10:25 Dose: 40 mg Documented by: Calamine/Phenol (Calmoseptine) 1 appln EXT UD PRN PRN Reason: SOILING Stop: 02/12/20 10:44 Cephalexin HCl (Keflex) 250 mg PO QID [facility]; Protocol Stop: 01/18/20 08:59 Last Admin: 01/17/20 10:27 Dose: 250 mg Documented by: Enalapril Maleate (Vasotec) 10 mg PO DAILY [facility]; Protocol Stop: 02/14/20 08:59 Last Admin: 01/17/20 10:26 Dose: 10 mg Documented by: Lactobacillus Acidophilus (Floranex) 4 tab PO QIDM [facility] Stop: 02/09/20 20:59 Last Admin: 01/17/20 10:28 Dose: Not Given Documented by: Loperamide HCl (Imodium) 2 mg PO Q6 PRN PRN Reason: Diarrhea Stop: 02/08/20 16:25 Last Admin: 01/16/20 12:16 Dose: 2 mg Documented by: Metoprolol Tartrate (Lopressor) 50 mg PO Q6 [facility] Stop: 02/16/20 11:59 Ondansetron HCl (Zofran) 4 mg IV Q6H PRN PRN Reason: Nausea Stop: 02/07/20 18:18 Oxycodone/Acetaminophen (Percocet 5mg/325mg) 1 tab PO Q6 PRN PRN Reason: Pain Stop: 01/22/20 20:10 Last Admin: 01/16/20 19:54 Dose: 1 tab Documented by: Potassium Chloride (Klor-Con M20) 20 meq PO BID [facility] Stop: 02/08/20 20:59 Last Admin: 01/16/20 19:55 Dose: 20 meq Documented by: Sertraline HCl (Zoloft) 150 mg PO DAILY [facility] Stop: 02/08/20 08:59 Last Admin: 01/17/20 10:26 Dose: 150 mg Documented by: Trazodone HCl (Desyrel) 100 mg PO HS PRN PRN Reason: Insomnia Stop: 02/07/20 20:10 Last Admin: 01/16/20 20:28 Dose: 100 mg Documented by: Warfarin Sodium (Coumadin) 5 mg PO DAILY@1600 [facility] Stop: 02/11/20 15:59 Last Admin: 01/16/20 15:21 Dose: 5 mg Documented by: (1) UTI (urinary tract infection) Hematuria presence: without hematuria Urinary tract infection type: acute cystitis Qualified Code(s): N30.00 - Acute cystitis without hematuria
[2020-01-17] MEDS: LOPERAMIDE HCL 2 MG CAP PO PRN ×3 (13:22→16:24)
[2020-01-17] MEDS: WARFARIN SOD 5 MG TAB PO SCH (16:25)
[2020-01-17] MEDS ORDERED: MENTHOL-ZINC OXIDE 360 APPLN/120 GM TUBE EXT PRN (17:19)
[2020-01-17] MEDS: DIPHENOXYLATE/ATROPINE 2.5/0.025MG TAB PO PRN (19:50)
--- NOTE | 2020-01-17 21:11 | Hospitalist Progress Note ---
Date of Service January 17, 2020 Assessment & Plan (1) Atrial fibrillation: (1) Atrial fibrillation: per Dr. Veliz's notes: Paroxysmal A. fib with RVR, new diagnosis during this hospital admission Patient input from cardiology, patient started with amiodarone, IV Cardizem discontinued COVID-19 test, droplet and airborne precaution discontinued Echocardiogram : Shows no wall motion abnormality, ejection fraction 55-60% mildly dilated right ventricle with reduced right ventricular systolic failure suggestive of right heart failure Amiodarone and Metoprolol titration in progress also on Coumadin , INR 2.2 monitor closely Acute diastolic CHF in the setting of new onset A fib given IV Lasix now euvolemic New diagnosis of right breast mass per Dr. Veliz's notes: CT abdomen pelvis with IV contrast shows possible new diagnosis of right-sided breast cancer, as documented on previous note Patient will need outpatient follow-up established for breast mammogram, breast biopsy Contacted [facility] breast cancer center, Discussed case briefly with breast cancer radiologist Dr. Ugalde All the diagnosis tests for breast cancer, mammogram, breast mass biopsy needs to be done as outpatient Breast cancer center coordinator Ethel rebecca Phone number #[phone] Given patient's [facility] Care center will contact patient and patient family to schedule outpatient follow-ups and diagnostic testing once patient is discharged from [facility] (2) Weakness: Gradually improving Weakness probable secondary to UTI, electrolyte abnormality as per below -Fall precautions -PT/OT (3) UTI (urinary tract infection): WBC: 12, UA: 3+ leuk est, >30 WBC, 5-10 RBC, 10-20 epithel, 3+bacteria Urine culture: E. coli, sensitive to Rocephin, ciprofloxacin Given cardiac arrhythmia will try to avoid quinolones given Ceftriaxone--> transitioned to Cephalexin will treat for at least 10 days of therapy Patient had recurrent urine tract infection at least 4 episodes in the last 6 months 3 of pelvic radiation treatment for endometrial carcinoma, chronic urinary incontinence Urology evaluation requested appreciate input Dias catheter drainage for complete evacuation of urinary bladder Renal ultrasound: Kidneys demonstrate cortical atrophy. No hydronephrosis is seen on right/there is mild to moderate left hydronephrosis/bladder is decompressed around a Dias catheter CT abdomen pelvis: Mild/moderate left-sided hydroureteronephrosis with narrowing of the distal left ureter adjacent to surgical clips within the left hemipelvis. No obstructing mass or calculus identified. 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 Urology team needs to be updated -- patient prefers to maintain Dias Catheter tonight (4) Hypokalemia: Due to GI loss, had multiple episodes of diarrhea, loose bowel movements Potassium replaced aggressively resolved Nephrology consulted (5) Hypomagnesemia: resolved (6) Diarrhea: -- (+) persistent diarrhea change Imodium to Lomotil CT abdomen unremarkable may need GI consult and possible colonoscopy as outpatient PRN Imodium (7) CKD (chronic kidney disease), stage III: Cr: 1.22. Baseline Cr: 1.2 stable (8) HTN (hypertension): BP stable -Hold benazepril and HCTZ at this time-Due to dehydration -Continue metoprolol -Labetalol prn BP stable (9) HLD (hyperlipidemia): -Continue atorvastatin (10) Depression: -Continue sertraline, trazodone DVT Prophylaxis -on coumadin DNR/DNI as per discussion with pt Follows with Dr Gifford for routine care Patient will need PT OT evaluation for significant deconditioning Family willing for inpatient rehab at [facility] as patient received rehab therapy there prior Admission and Anticipated Discharge Date Admission Date: January 08, 2020 Subjective ff up for a fib, etc seen resting in bed, comfortable watching TV no chest pain, SOB, palpitations, dizziness reports 3-4 episodes of loose stools today, no melena/hematochezia no abdominal pain, nausea/vomiting no other symptoms Review of Systems Review of Systems: All systems reviewed & are unremarkable except as noted in HPI & below Physical Exam Physical Exam: General- oriented x 3, not in distress, speaks in sentences with no effort or accessory muscle use Eyes- anicteric Neck- no JVD Lungs- clear breath sounds bilaterally Heart- normal rate, irregularly irregular rhythm; no murmurs Abdomen- normal bowel sounds, nondistended, soft, nontender Extremities- no pretibial edema, no calf tenderness Neuro- alert, oriented x 3; no gross focal neurologic deficits Skin- warm & dry Results & Data Results & Data ([facility]) Vital Signs (Past 12 Hours) Vital Signs Temp Pulse Pulse Resp BP Pulse Ox 01/17/20 20:30 36.3 C L 106 H 18 123/82 91 07/31/20 16:09 36.7 C 109 H 18 119/82 91 01/17/20 11:25 36.6 C 118 H 20 127/80 94
[2020-01-17] MEDS: OXYCODONE/ACETAMINOPHEN 5mg/325mg TAB PO PRN (21:27)
[2020-01-17] MEDS: TRAZODONE HCL 100 MG TAB PO PRN (22:05)
[2020-01-18] MEDS: METOPROLOL TARTRATE 50 MG TAB PO SCH ×3 (06:13→17:35)
[2020-01-18 07:28] LABS: BUN Creatinine Ratio 14.4 (10-20); Calcium 9.2 mg/dl (8.5-10.1); Creatinine Clr Calc Pharmacy 40.2 ml/min; Est GFR (Non-African American) 38.8; Potassium 4.5 mmol/L (3.5-5.1)
[2020-01-18] MEDS: LACTOBACILLUS ACIDOPHILUS (FLORANEX) TAB PO SCH ×4 (07:49→21:26)
[2020-01-18 09:03] LABS: INR 2.6 (0.9-1.1); Prothrombin Time 26.3 Seconds (9.0-12.0)
[2020-01-18] MEDS: ASCORBIC ACID 500 MG TAB PO SCH (09:35)
[2020-01-18] MEDS: ENALAPRIL MALEATE 10 MG TAB PO SCH (09:36)
[2020-01-18] MEDS: ATORVASTATIN 40 MG TAB PO SCH (09:36)
[2020-01-18] MEDS: AMIODARONE 200 MG TAB PO SCH (09:36)
[2020-01-18] MEDS: SERTRALINE HCL 50 MG TABLET PO SCH (09:36)
[2020-01-18] MEDS: DIPHENOXYLATE/ATROPINE 2.5/0.025MG TAB PO PRN ×2 (12:35→17:48)
[2020-01-18] MEDS: ACETAMINOPHEN 325 MG TAB PO PRN (12:37)
[2020-01-18] MEDS: WARFARIN SOD 5 MG TAB PO SCH (15:37)
[2020-01-18] MEDS: SODIUM CHLORIDE 0.9% 1000ML 1,000 ML IV SCH (15:39)
--- NOTE | 2020-01-18 16:24 | Urology Progress Note ---
Date of Service January 18, 2020 Assessment & Plan (1) UTI (urinary tract infection): (2) Hydronephrosis: Left sided hydro with very slow rise in Cr. Rec repeat BECKA to see if [place] is worsening Continue to trend Cr. If worsens, may have to consider stent insertion at somepoint. Keep duran to gravity drainage. Cont abx for UTI. Subjective 79 y/o female with hx of right breast mass, left hydro, and UTI. Urology asked to re-eval patient due to left hydro. CR slowly rising. Last 4 days: 1.15, 1.09, 1.23, 1.29 No flank pain. Duran catheter in place. Urine Cx showed E. Coli. Currently treated with abx. Review of Systems Review of Systems: All systems reviewed & are unremarkable except as noted in HPI & below Physical Exam Constitutional: WD/WN, vitals as above Respiratory: normal respiratory effort, lungs clear to auscultation Cardiovascular: RRR, no murmur, no edema Skin: no rashes, warm and dry Genitourinary: urine yellow, concentrated Results & Data Vital Signs (Past 12 Hours) Vital Signs Temp Pulse Pulse Resp BP BP Pulse Ox 01/18/20 15:18 36.8 C 95 H 18 121/81 93 01/18/20 11:33 36.7 C 105 H 20 124/79 93 01/18/20 07:30 106 H 01/18/20 06:57 36.7 C 103 H 18 117/76 90 PG Care Time/CCT Total # of Minutes Spent Total Time Spent with Patient: Total time spent is greater than 50% in coordination of care (as documented) at patient's floor/unit and/or counseling patient: 20 Coding Level of Care Code 21229 Subseq Hosp Care Lvl 3 Diagnoses UTI (urinary tract infection) N30.00 Hematuria presence: without hematuria Urinary tract infection type: acute cystitis Hydronephrosis N13.30 (1) UTI (urinary tract infection) Hematuria presence: without hematuria Urinary tract infection type: acute cystitis Qualified Code(s): N30.00 - Acute cystitis without hematuria
--- NOTE | 2020-01-18 16:37 | Cardiology Progress Note ---
Date of Service January 18, 2020 Assessment & Plan (1) Atrial fibrillation: Rate control with metoprolol and amiodarone. New Coumadin for stroke prophylaxis: INR 2.6. Subjective Patient seen in follow-up. She is comfortable lying supine. Reveals atrial fibrillation with rates in the range of 90 to 110 bpm. Physical Exam Physical Exam: Temp Pulse Resp BP Pulse Ox 36.8 C 95 H 18 121/81 93 01/18/20 15:18 01/18/20 15:18 01/18/20 15:18 01/18/20 15:18 01/18/20 15:18 Constitutional: WD/WN, vitals as above Respiratory: normal respiratory effort, lungs clear to auscultation Cardiovascular: Rate/Rhythm: + irregularly irregular Heart Sounds: no murmur Vessels: no JVD Extremities: no edema Gastrointestinal (Abdomen): normal bowel sounds, soft, nontender, no hepatosplenomegaly Neurologic: PERRL, EOMI, accommodation nl, no face palsy, no dysarthria Results & Data Vital Signs (Past 12 Hours) Vital Signs Temp Pulse Pulse Resp BP BP Pulse Ox 01/18/20 15:18 36.8 C 95 H 18 121/81 93 01/18/20 11:33 36.7 C 105 H 20 124/79 93 01/18/20 07:30 106 H 01/18/20 06:57 36.7 C 103 H 18 117/76 90 Laboratory Results Coagulation 01/18/20 Range/Units 08:43 PT 26.3 H (9.0-12.0) Seconds Comprehensive Metabolic Panel 01/18/20 Range/Units 06:21 Sodium 139 (136-145) mmol/L Potassium 4.5 (3.5-5.1) mmol/L Chloride 107 (98-107) mmol/L Carbon Dioxide 26 (21-32) mmol/L BUN 19 H (7-18) mg/dl Creatinine 1.29 H (0.6-1.2) mg/dl Glucose 109 H (70-99) mg/dl Calcium 9.2 (8.5-10.1) mg/dl Intake and Output 01/18/20 01/18/20 01/18/20 06:59 14:59 22:59 Intake Total 120 / 1200 370 / 370 Output Total 500 / 1602 550 / 550 Balance -380 / -402 -180 / -180 Intake: Oral 120 / 1200 370 / 370 Output: Urine Amount (Catheter) 500 / 1600 550 / 550 Dias/Indwelling 500 / 1600 550 / 550 Other: Weight 97 kg
[2020-01-18] MEDS: OXYCODONE/ACETAMINOPHEN 5mg/325mg TAB PO PRN (17:36)
--- NOTE | 2020-01-18 19:24 | Hospitalist Progress Note ---
Date of Service January 18, 2020 Assessment & Plan (1) Atrial fibrillation: Atrial fibrillation: per Dr. Veliz's notes: Paroxysmal A. fib with RVR, new diagnosis during this hospital admission Patient input from cardiology, patient started with amiodarone, IV Cardizem discontinued COVID-19 test, droplet and airborne precaution discontinued Echocardiogram : Shows no wall motion abnormality, ejection fraction 55-60% mildly dilated right ventricle with reduced right ventricular systolic failure suggestive of right heart failure continue Amiodarone and Metoprolol also on Coumadin , INR 2.6 monitor closely Acute diastolic CHF in the setting of new onset A fib given IV Lasix now euvolemic Diarrhea (+) persistent diarrhea for almost [address] abdomen: 1. Enhancing irregular mass within the superior lateral quadrant of the right breast abuts the chest wall measuring up to 2.7 cm. Additionally, there are a few enhancing subcentimeter enhancing foci inferiorly and laterally to the dominant mass. Findings are suggestive of multifocal malignancy. Correlation with mammography is needed. 2. Mild/moderate left-sided hydroureteronephrosis with narrowing of the distal left ureter adjacent to surgical clips within the left hemipelvis. No obstructing mass or calculus identified. 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 Urology consultation recommended. 3. Small pleural effusions with dependent bibasilar atelectasis. 4. 1.5 cm splenic artery aneurysm. 5. No bowel obstruction or bowel wall thickening. Normal appendix. 6. Colonic diverticulosis. C diff: negative changed Imodium to Lomotil clear liquid diet d/c Atorvastatin will consult GI given persistence of diarrhea UTI (urinary tract infection) Recurrent, Likely related to Urinary Retention, Incontinence Patient had recurrent urine tract infection at least 4 episodes in the last 6 months WBC: 12, UA: 3+ leuk est, >30 WBC, 5-10 RBC, 10-20 epithel, 3+bacteria Urine culture: E. coli, sensitive to Rocephin, ciprofloxacin given Ceftriaxone--> transitioned to Cephalexin will treat for at least 10 days of therapy Urinary Retention, Incontinence Left Ureteral Stenosis History of pelvic radiation treatment for endometrial carcinoma, chronic urinary incontinence Renal ultrasound: Kidneys demonstrate cortical atrophy. No hydronephrosis is seen on right/there is mild to moderate left hydronephrosis/bladder is decompressed around a Dias catheter CT abdomen pelvis: Mild/moderate left-sided hydroureteronephrosis with narrowing of the distal left ureter adjacent to surgical clips within the left hemipelvis. No obstructing mass or calculus identified. 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 -- Urologist consulted recommend BECKA as outpatient monitor crea continue Dias Cath for now CKD (chronic kidney disease), stage III Cr: 1.22. Baseline Cr: 1.2 monitor Right Breast Mass, New Diagnosis per Dr. Veliz's notes: CT abdomen pelvis with IV contrast shows possible new diagnosis of right-sided breast cancer, as documented on previous note Patient will need outpatient follow-up established for breast mammogram, breast biopsy Contacted [facility] cancer center, Discussed case briefly with breast cancer radiologist Dr. Ugalde All the diagnosis tests for breast cancer, mammogram, breast mass biopsy needs to be done as outpatient Breast cancer center coordinator Ethel fernandez Phone number #[phone] Given patient's [facility] Care center will contact patient and patient family to schedule outpatient follow-ups and diagnostic testing once patient is discharged from [facility] Weakness: Gradually improving Weakness probable secondary to UTI, electrolyte abnormality as per below -Fall precautions -PT/OT Hypokalemia: Due to GI loss, had multiple episodes of diarrhea, loose bowel movements Potassium replaced resolved Nephrology consulted Hypomagnesemia: resolved HTN (hypertension): BP stable -Hold benazepril and HCTZ at this time-Due to dehydration -Continue metoprolol -Labetalol prn BP stable DVT Prophylaxis -on coumadin DNR/DNI as per discussion with pt Follows with Dr Gifford for routine care D/C to [facility] when medically stable Admission and Anticipated Discharge Date Admission Date: January 08, 2020 Subjective ff up for a fib, UTI, diarrhea seen resting in bed, not in distress, alert feels fine overall reports discomfort over irritated areas of the buttocks, groin still had 2 loose BMs this morning, about 3-4 yesterday no abdominal pain ,nausea/vomiting no chest pain, dizziness, palpitations no other symptoms Review of Systems Review of Systems: All systems reviewed & are unremarkable except as noted in HPI & below Physical Exam Physical Exam: General- oriented x 3, not in distress, speaks in sentences with no effort or accessory muscle use Eyes- anicteric Neck- no JVD Lungs- clear BS BL Heart- normal rate, irregularly irregular rhythm; no murmurs Abdomen- normal bowel sounds, nondistended, soft, nontender Extremities- no pretibial edema, no calf tenderness Back- (+) erythematous area of the buttocks- medial, and groin Neuro- alert, oriented x 3; no gross focal neurologic deficits Skin- warm & dry Results & Data Results & Data ([facility]) Vital Signs (Past 12 Hours) Vital Signs Temp Pulse Pulse Resp BP BP Pulse Ox 01/18/20 15:18 36.8 C 95 H 18 121/81 93 01/18/20 11:33 36.7 C 105 H 20 124/79 93 01/18/20 07:30 106 H Laboratory Results Laboratory Results - last 24 hr 01/18/20 01/18/20 06:21 08:43 PT 26.3 H INR 2.6 H Sodium 139 Potassium 4.5 Chloride 107 Carbon Dioxide 26 Anion Gap 6.0 BUN 19 H Creatinine 1.29 H Est Cr Clr Drug Dosing 40.2 Est GFR ( Amer) 45.0 Est GFR (Non-Af Amer) 38.8 BUN/Creatinine Ratio 14.4 Glucose 109 H Calcium 9.2
[2020-01-18] MEDS: TRAZODONE HCL 100 MG TAB PO PRN (21:34)
[2020-01-19] MEDS: METOPROLOL TARTRATE 50 MG TAB PO SCH ×5 (00:54→23:44)
[2020-01-19] MEDS: DIPHENOXYLATE/ATROPINE 2.5/0.025MG TAB PO PRN ×4 (05:46→21:10)
[2020-01-19 06:55] LABS: INR 2.7 (0.9-1.1); Prothrombin Time 26.7 Seconds (9.0-12.0)
[2020-01-19 07:10] LABS: BUN Creatinine Ratio 17.3 (10-20); Calcium 8.5 mg/dl (8.5-10.1); Creatinine Clr Calc Pharmacy 44.6 ml/min; Est GFR (African American) 51.1; Est GFR (Non-African American) 44.1; Potassium 4.2 mmol/L (3.5-5.1)
[2020-01-19] MEDS: SODIUM CHLORIDE 0.9% 1000ML 1,000 ML IV SCH (09:39)
[2020-01-19] MEDS: LACTOBACILLUS ACIDOPHILUS (FLORANEX) TAB PO SCH ×4 (09:40→21:09)
[2020-01-19] MEDS: SERTRALINE HCL 50 MG TABLET PO SCH (09:40)
[2020-01-19] MEDS: ASCORBIC ACID 500 MG TAB PO SCH (09:41)
[2020-01-19] MEDS: AMIODARONE 200 MG TAB PO SCH (09:41)
[2020-01-19] MEDS: ENALAPRIL MALEATE 10 MG TAB PO SCH (09:41)
[2020-01-19] MEDS: WARFARIN SOD 5 MG TAB PO SCH (16:28)
--- NOTE | 2020-01-19 17:54 | Hospitalist Progress Note ---
Date of Service January 19, 2020 Assessment & Plan (1) Atrial fibrillation: Atrial fibrillation: per Dr. Veliz's notes: Paroxysmal A. fib with RVR, new diagnosis during this hospital admission Patient input from cardiology, patient started with amiodarone, IV Cardizem discontinued COVID-19 test, droplet and airborne precaution discontinued Echocardiogram : Shows no wall motion abnormality, ejection fraction 55-60% mildly dilated right ventricle with reduced right ventricular systolic failure suggestive of right heart failure continue Amiodarone and Metoprolol also on Coumadin , INR 2.7 monitor closely Acute diastolic CHF in the setting of new onset A fib given IV Lasix now euvolemic Diarrhea (+) persistent diarrhea for almost [address] abdomen: 1. Enhancing irregular mass within the superior lateral quadrant of the right breast abuts the chest wall measuring up to 2.7 cm. Additionally, there are a few enhancing subcentimeter enhancing foci inferiorly and laterally to the dominant mass. Findings are suggestive of multifocal malignancy. Correlation with mammography is needed. 2. Mild/moderate left-sided hydroureteronephrosis with narrowing of the distal left ureter adjacent to surgical clips within the left hemipelvis. No obstructing mass or calculus identified. 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 Urology consultation recommended. 3. Small pleural effusions with dependent bibasilar atelectasis. 4. 1.5 cm splenic artery aneurysm. 5. No bowel obstruction or bowel wall thickening. Normal appendix. 6. Colonic diverticulosis. C diff: negative changed Imodium to Lomotil--> seems to be improving clear liquid diet d/c Atorvastatin consulted GI given persistence of diarrhea UTI (urinary tract infection) Recurrent, Likely related to Urinary Retention, Incontinence Patient had recurrent urine tract infection at least 4 episodes in the last 6 months WBC: 12, UA: 3+ leuk est, >30 WBC, 5-10 RBC, 10-20 epithel, 3+bacteria Urine culture: E. coli, sensitive to Rocephin, ciprofloxacin given Ceftriaxone--> transitioned to Cephalexin completed 10 days of therapy Urinary Retention, Incontinence Left Ureteral Stenosis History of pelvic radiation treatment for endometrial carcinoma, chronic urinary incontinence Renal ultrasound: Kidneys demonstrate cortical atrophy. No hydronephrosis is seen on right/there is mild to moderate left hydronephrosis/bladder is decompressed around a Dias catheter CT abdomen pelvis: Mild/moderate left-sided hydroureteronephrosis with narrowing of the distal left ureter adjacent to surgical clips within the left hemipelvis. No obstructing mass or calculus identified. 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 -- Urologist consulted recommend BECKA as outpatient monitor crea- stable continue Dias Cath for now CKD (chronic kidney disease), stage III Cr: 1.22. Baseline Cr: 1.2 stable monitor Right Breast Mass, New Diagnosis per Dr. Veliz's notes: CT abdomen pelvis with IV contrast shows possible new diagnosis of right-sided breast cancer, as documented on previous note Patient will need outpatient follow-up established for breast mammogram, breast biopsy Contacted [facility] cancer [place], Discussed case briefly with breast cancer radiologist Dr. Ugalde All the diagnosis tests for breast cancer, mammogram, breast mass biopsy needs to be done as outpatient Breast cancer center coordinator Ethel fernandez Phone number #[phone] Given patient's [facility] Care center will contact patient and patient family to schedule outpatient follow-ups and diagnostic testing once patient is discharged from [facility] Weakness: Gradually improving Weakness probable secondary to UTI, electrolyte abnormality as per below -Fall precautions -PT/OT Hypokalemia: Due to GI loss, had multiple episodes of diarrhea, loose bowel movements Potassium replaced resolved Nephrology consulted Hypomagnesemia: resolved HTN (hypertension): BP stable -Hold benazepril and HCTZ at this time-Due to dehydration -Continue metoprolol -Labetalol prn BP stable DVT Prophylaxis -on coumadin DNR/DNI as per discussion with pt Follows with Dr Gifford for routine care D/C to [facility] when medically stable Admission and Anticipated Discharge Date Admission Date: January 08, 2020 Subjective ff up for diarrhea, urinary incontinence a fib seen resting in bed, comfortable states she had 2 episodes of loose BMs today denies chest pain, palpitations, dizziness mild discomfort in the irritated areas of the groin, buttocks no other symptoms Review of Systems Review of Systems: All systems reviewed & are unremarkable except as noted in HPI & below Physical Exam Physical Exam: General- oriented x 3, not in distress, speaks in sentences with no effort or accessory muscle use Eyes- anicteric Neck- no JVD Lungs- clear breath sounds ,no rales BL Heart- normal rate, irregularly irregular rhythm; no murmurs Abdomen- normal bowel sounds, nondistended, soft, nontender Extremities- no pretibial edema, no calf tenderness Groin- erythema improving, no signs of cellulitis Neuro- alert, oriented x 3; no gross focal neurologic deficits Skin- warm & dry Results & Data Results & Data ([facility]) Vital Signs (Past 12 Hours) Vital Signs Temp Pulse Pulse Resp BP Pulse Ox 01/19/20 15:40 36.9 C 103 H 18 108/71 93 01/19/20 11:38 36.9 C 86 20 122/56 L 95 01/19/20 08:06 36.8 C 72 18 110/64 96 Laboratory Results Laboratory Results - last 24 hr 01/19/20 01/19/20 06:10 06:10 PT 26.7 H INR 2.7 H Sodium 142 Potassium 4.2 Chloride 111 H Carbon Dioxide 23 Anion Gap 8.0 BUN 20 H Creatinine 1.16 Est Cr Clr Drug Dosing 44.6 Est GFR ( Amer) 51.1 Est GFR (Non-Af Amer) 44.1 BUN/Creatinine Ratio 17.3 Glucose 124 H Calcium 8.5
[2020-01-19] MEDS: OXYCODONE/ACETAMINOPHEN 5mg/325mg TAB PO PRN (18:39)
[2020-01-19] MEDS: TRAZODONE HCL 100 MG TAB PO PRN (21:09)
[2020-01-20] MEDS: SODIUM CHLORIDE 0.9% 1000ML 1,000 ML IV SCH ×2 (02:20→20:34)
[2020-01-20] MEDS: DIPHENOXYLATE/ATROPINE 2.5/0.025MG TAB PO PRN ×3 (06:13→16:53)
[2020-01-20] MEDS: METOPROLOL TARTRATE 50 MG TAB PO SCH ×2 (06:13→12:40)
[2020-01-20 07:19] LABS: BUN Creatinine Ratio 14.2 (10-20); Calcium 8.4 mg/dl (8.5-10.1); Creatinine Clr Calc Pharmacy 45.3 ml/min; Est GFR (African American) 51.7; Est GFR (Non-African American) 44.6; Potassium 4.3 mmol/L (3.5-5.1)
[2020-01-20] MEDS: AMIODARONE 200 MG TAB PO SCH (10:05)
[2020-01-20] MEDS: ASCORBIC ACID 500 MG TAB PO SCH (10:05)
[2020-01-20] MEDS: SERTRALINE HCL 50 MG TABLET PO SCH (10:05)
[2020-01-20] MEDS: ENALAPRIL MALEATE 10 MG TAB PO SCH (10:05)
[2020-01-20] MEDS: LACTOBACILLUS ACIDOPHILUS (FLORANEX) TAB PO SCH ×4 (10:05→20:38)
--- NOTE | 2020-01-20 10:22 | Gastrointestinal Consultation ---
Date of Consultation January 20, 2020 Assessment & Plan (1) Diarrhea: Chronic diarrhea in the setting of hx of uterine CA with radiation. C- diff is (-). Differentials considered include radiation stricture with overflow, proctitis. Other possibilities include infectious diarrhea, SIBO. Recommend continuing the Lomotil prn. Offered OP colonsocopy. Pt is hestitant to undergo procedures and asks me to speak with her daughter. Attg add: I interviewed and examined pt, reviewed chart and labs. Pt with uterine cancer and small volume stools with urgency. CT unremarkable. Can consider outpt cscopy, plan empiric therapy with Lomotil. Present on Admission?: Yes History of Present Illness Reason for Consultation: Diarrhea Requesting Physician: Dr. Camarillo Attending Physician: Sandip Camarillo MD History of Present Illness Ms. Alyce Myers is an 79 yr old female pt of Dr. Gifford with a hx of PMH HTN, HLD, CKD III, uterine Ca S/P surgery and radiation in 2016, depression who presented to [facility] on 01/07 for weakness and has been treated for hypokalemia, hypomagnesium, UTI and A-fib (anticoagulated, INR 2.7). GI is consulted for chronic diarrhea. Pt is unable to tell me how many times/day but believes this began soon after radiation in 2016 for uterine cancer. The ED notes says that she reported about 2-3/day. She believes that she has lost about 30 lbs in the past month or so. Stools are (-) for C-diff. TSH was normal in November. Nursing says that Lomotil seems to be working, that she had 3 BMs yesterday, one thus far today. Of note, she is on Mag oxide as a home pt. Allergies Allergy/AdvReac Type Severity Reaction Status Date / Time No Known Allergies Allergy Verified 01/08/20 17:02 Home Medications Home Medications Medication Instructions Recorded Confirmed Type ascorbic acid (vitamin C) [Vitamin 1 g PO DAILY 01/08/20 01/08/20 History C] atorvastatin [Lipitor] 40 mg PO DAILY 01/08/20 01/08/20 History benazepril [Lotensin] 10 mg PO DAILY 01/08/20 01/08/20 History cholecalciferol (vitamin D3) 25 mcg PO DAILY 01/08/20 01/08/20 History [Vitamin D3] hydrochlorothiazide 25 mg PO DAILY 01/08/20 01/08/20 History magnesium oxide 400 mg PO DAILY 01/08/20 01/08/20 History metoprolol succinate [Toprol XL] 100 mg PO DAILY 01/08/20 01/08/20 History oxycodone-acetaminophen [Percocet] 1 tab PO Q6 PRN 01/08/20 01/08/20 History sertraline [Zoloft] 150 mg PO DAILY 01/08/20 01/08/20 History trazodone 100 mg PO HS PRN 01/08/20 01/08/20 History Patient History Medical History Chronic back pain CKD (chronic kidney disease), stage III Depression HLD (hyperlipidemia) HTN (hypertension) (Chronic) Macular degeneration Surgical History History of cholecystectomy History of hysterectomy History of total knee arthroplasty Family History Father Coronary heart disease Mother Coronary heart disease Other Cancer Social History Smoking Status: Never smoker Hx Alcohol Use: No Hx Substance Use: No Preferred Language: Georgian Communication Ability: Effective Beliefs That Will Affect Care: None marital status: Unknown Current Living Situation: Alone Feels Safe at Home: Yes Results & Data ([facility]) Vital Signs (Past 12 Hours) Vital Signs Temp Pulse Resp BP Pulse Ox 01/20/20 07:34 36.8 C 114 H 18 115/69 95 01/20/20 03:31 36.6 C 122 H 18 103/58 L 93 01/19/20 23:15 36.6 C 127 H 19 106/61 93 Laboratory Results WBC 8, Hb 10, Hct 32, Platelets 167, INR 2.7, Na 142, K 4.3, BUN 16, Cr 1.5. Diagnostic Findings CT with IV contrast 01/13/20: 1. Enhancing irregular mass within the superior lateral quadrant of the right breast abuts the chest wall measuring up to 2.7 cm. Additionally, there are a few enhancing subcentimeter enhancing foci inferiorly and laterally to the dominant mass. Findings are suggestive of multifocal malignancy. Correlation with mammography is needed. 2. Mild/moderate left-sided hydroureteronephrosis with narrowing of the distal left ureter adjacent to surgical clips within the left hemipelvis. No obstructing mass or calculus identified. 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 Urology consultation recommended. 3. Small pleural effusions with dependent bibasilar atelectasis. 4. 1.5 cm splenic artery aneurysm. 5. No bowel obstruction or bowel wall thickening. Normal appendix. 6. Colonic diverticulosis.
--- NOTE | 2020-01-20 13:34 | Hospitalist Progress Note ---
Date of Service January 20, 2020 Assessment & Plan (1) Atrial fibrillation: Atrial fibrillation: per Dr. Veliz's notes: Paroxysmal A. fib with RVR, new diagnosis during this hospital admission Patient input from cardiology, patient started with amiodarone, IV Cardizem discontinued COVID-19 test, droplet and airborne precaution discontinued Echocardiogram : Shows no wall motion abnormality, ejection fraction 55-60% mildly dilated right ventricle with reduced right ventricular systolic failure suggestive of right heart failure continue Amiodarone and Metoprolol tartrate 50 mg every 6 hours also on Coumadin , INR 2.7 monitor closely Acute diastolic CHF in the setting of new onset A fib given IV Lasix now euvolemic Diarrhea (+) persistent diarrhea for almost [address] abdomen: 1. Enhancing irregular mass within the superior lateral quadrant of the right breast abuts the chest wall measuring up to 2.7 cm. Additionally, there are a few enhancing subcentimeter enhancing foci inferiorly and laterally to the dominant mass. Findings are suggestive of multifocal malignancy. Correlation with mammography is needed. 2. Mild/moderate left-sided hydroureteronephrosis with narrowing of the distal left ureter adjacent to surgical clips within the left hemipelvis. No obstructing mass or calculus identified. 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 Urology consultation recommended. 3. Small pleural effusions with dependent bibasilar atelectasis. 4. 1.5 cm splenic artery aneurysm. 5. No bowel obstruction or bowel wall thickening. Normal appendix. 6. Colonic diverticulosis. C diff: negative changed Imodium to Lomotil--> seems to be improving with Lomotil Advance diet to easy to diet GI consulted, will discuss colonoscopy with patient's daughter UTI (urinary tract infection) Recurrent, Likely related to Urinary Retention, Incontinence Patient had recurrent urine tract infection at least 4 episodes in the last 6 months WBC: 12, UA: 3+ leuk est, >30 WBC, 5-10 RBC, 10-20 epithel, 3+bacteria Urine culture: E. coli, sensitive to Rocephin, ciprofloxacin given Ceftriaxone--> transitioned to Cephalexin completed 10 days of therapy Urinary Retention, Incontinence Left Ureteral Stenosis History of pelvic radiation treatment for endometrial carcinoma, chronic urinary incontinence Renal ultrasound: Kidneys demonstrate cortical atrophy. No hydronephrosis is seen on right/there is mild to moderate left hydronephrosis/bladder is decompressed around a Dias catheter CT abdomen pelvis: Mild/moderate left-sided hydroureteronephrosis with narrowing of the distal left ureter adjacent to surgical clips within the left hemipelvis. No obstructing mass or calculus identified. 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 -- Urologist consulted Renal ultrasound pending to check for progression of left-sided hydronephrosis Creatinine stable continue Dias Cath for now CKD (chronic kidney disease), stage III Cr: 1.22. Baseline Cr: 1.2 stable monitor Right Breast Mass, New Diagnosis per Dr. Veliz's notes: CT abdomen pelvis with IV contrast shows possible new diagnosis of right-sided breast cancer, as documented on previous note Patient will need outpatient follow-up established for breast mammogram, breast biopsy Contacted [facility] breast cancer center, Discussed case briefly with breast cancer radiologist Dr. Ugalde All the diagnosis tests for breast cancer, mammogram, breast mass biopsy needs to be done as outpatient Breast cancer center coordinator Ethel fernandez Phone number #[phone] Given patient's [facility] Care center will contact patient and patient family to schedule outpatient follow-ups and diagnostic testing once patient is discharged from [facility] Weakness: Gradually improving Weakness probable secondary to UTI, electrolyte abnormality as per below -Fall precautions -PT/OT Hypokalemia: Due to GI loss, had multiple episodes of diarrhea, loose bowel movements Potassium replaced resolved Nephrology consulted Hypomagnesemia: resolved HTN (hypertension): BP stable -Hold benazepril and HCTZ at this time-Due to dehydration -Continue metoprolol -Labetalol prn BP stable DVT Prophylaxis -on coumadin DNR/DNI as per discussion with pt Follows with Dr Gifford for routine care D/C to [facility] when medically stable Admission and Anticipated Discharge Date Admission Date: January 08, 2020 Subjective Follow-up for diarrhea, acute renal failure, electrolyte disturbance, atrial fibrillation on Coumadin Seen resting in bed, comfortable, not in distress Had total of 3 loose bowel movements yesterday, 1 loose bowel movement so far today No abdominal pain, nausea vomiting, fevers or chills Denies chest pain, palpitations, dizziness No other symptoms Review of Systems Review of Systems: All systems reviewed & are unremarkable except as noted in HPI & below Physical Exam Physical Exam: General- oriented x 3, not in distress, speaks in sentences with no effort or accessory muscle use Eyes- anicteric Neck- no JVD Lungs- clear BS bilaterally, no wheezing Heart-heart rate low 100s, irregularly irregular rhythm Abdomen- normal bowel sounds, nondistended, soft, nontender Extremities- no pretibial edema, no calf tenderness Neuro- alert, oriented x 3; no gross focal neurologic deficits Skin- warm & dry Results & Data Results & Data ([facility]) Vital Signs (Past 12 Hours) Vital Signs Temp Pulse Resp BP Pulse Ox 01/20/20 12:22 36.9 C 94 H 22 105/71 95 01/20/20 07:34 36.8 C 114 H 18 115/69 95 01/20/20 03:31 36.6 C 122 H 18 103/58 L 93 Laboratory Results Laboratory Results - last 24 hr 01/20/20 06:13 Sodium 142 Potassium 4.3 Chloride 111 H Carbon Dioxide 23 Anion Gap 8.0 BUN 16 Creatinine 1.15 Est Cr Clr Drug Dosing 45.3 Est GFR ( Amer) 51.7 Est GFR (Non-Af Amer) 44.6 BUN/Creatinine Ratio 14.2 Glucose 108 H Calcium 8.4 L
--- NOTE | 2020-01-20 14:39 | Ultrasound Report ---
US renal/blad retro comp HISTORY: Hydronephrosis left hydronephrosis COMPARISON: 01/12/2020 FINDINGS: Right kidney: Maximum dimension 10.3 cm. No evidence for hydronephrosis. 1.7 cm upper pole cyst. Mild cortical scarring throughout Left kidney: Maximum dimension 10.4 cm. Mild left hydronephrosis and hydroureter unchanged from the prior study. Normal corticomedullary differentiation and cortical thickness. Mild cortical scarring Bladder: No bladder wall thickening. The bilateral ureteral jets were identified. IMPRESSION: 1. Mild left renal hydroureteronephrosis. 2. This is considered unchanged from the prior study. 3. Mild bilateral cortical scarring also unchanged. ACT 112: Negative or not required by law. The above report was generated using voice recognition software. It may contain grammatical, syntax or spelling errors. Electronically signed by: Eric Lynn M.D. 01/20/2020 2:37 PM
[2020-01-20] MEDS: WARFARIN SOD 5 MG TAB PO SCH (16:51)
[2020-01-20] MEDS ORDERED: NYSTATIN POWDER 15GM BTL EXT PRN (19:29)
[2020-01-20] MEDS: ACETAMINOPHEN 325 MG TAB PO PRN (20:38)
[2020-01-20] MEDS: METOPROLOL SUCC 50MG EXT REL TAB PO SCH (20:46)
[2020-01-20] MEDS: TRAZODONE HCL 100 MG TAB PO PRN (21:17)
[2020-01-20] MEDS: MICONAZOLE NITRATE POWDER 43 GM EXT SCH (22:04)
[2020-01-21 06:15] LABS: INR 4.9 (0.9-1.1); Prothrombin Time 47.2 Seconds (9.0-12.0)
[2020-01-21 06:20] LABS: BUN Creatinine Ratio 13.4 (10-20); Calcium 8.3 mg/dl (8.5-10.1); Creatinine Clr Calc Pharmacy 44.9 ml/min; Est GFR (African American) 51.1; Est GFR (Non-African American) 44.1; Potassium 4.2 mmol/L (3.5-5.1)
[2020-01-21] MEDS: ASCORBIC ACID 500 MG TAB PO SCH (08:18)
[2020-01-21] MEDS: ENALAPRIL MALEATE 10 MG TAB PO SCH (08:18)
[2020-01-21] MEDS: LACTOBACILLUS ACIDOPHILUS (FLORANEX) TAB PO SCH ×4 (08:18→21:09)
[2020-01-21] MEDS: METOPROLOL SUCC 50MG EXT REL TAB PO SCH ×2 (08:18→21:09)
[2020-01-21] MEDS: AMIODARONE 200 MG TAB PO SCH (08:18)
[2020-01-21] MEDS: SERTRALINE HCL 50 MG TABLET PO SCH (08:18)
[2020-01-21] MEDS: MICONAZOLE NITRATE POWDER 43 GM EXT SCH ×3 (08:18→21:10)
[2020-01-21] MEDS ORDERED: LAVAGE SOLUTION 4000ML PO SCH (10:00)
[2020-01-21] MEDS: OXYCODONE/ACETAMINOPHEN 5mg/325mg TAB PO PRN ×2 (11:04→21:08)
--- NOTE | 2020-01-21 11:05 | Urology Progress Note ---
Date of Service January 21, 2020 Assessment & Plan (1) Hydronephrosis: Left hydronephrosis to the level of a surgical clip in the pelvis This is remained stable Her creatinine is appropriate She is dealing with numerous other chronic and acute medical issues I do not believe there is any indication to intervene from a standpoint at presentcontinued observation is most reasonable Please contact us if there are any changes during the remainder of this hospitalizationwe will follow from the periphery otherwise Subjective Denies any new related complaints She does have some abdominal discomfort/nausea, but no left flank pain No hematuria Ultrasound yesterdaystable appearance of mild left hydro- Creatinine improved from several days ago but stable overall Physical Exam Constitutional: well developed and well nourished Respiratory: no respiratory distress Cardiovascular: Extremities: no pedal edema Gastrointestinal (Abdomen): Inspection/Auscultation: abdomen normal to inspection Results & Data Vital Signs (Past 12 Hours) Vital Signs Temp Pulse Pulse Pulse Resp BP BP 01/21/20 07:19 36.8 C 111 H 21 141/79 H 01/21/20 04:06 36.8 C 110 H 18 116/69 01/21/20 00:00 97 H 01/20/20 23:55 36.7 C 110 H 18 106/68 Pulse Ox 01/21/20 07:19 92 01/21/20 04:06 92 01/21/20 00:00 01/20/20 23:55 93 PG Care Time/CCT Total # of Minutes Spent Total Time Spent with Patient: Total time spent is greater than 50% in coordination of care (as documented) at patient's floor/unit and/or counseling patient: Coding Level of Care Code 77508 Subseq Hosp Care Lvl 2 Diagnoses Hydronephrosis N13.30
[2020-01-21] MEDS: SODIUM CHLORIDE 0.9% 1000ML 1,000 ML IV SCH (11:09)
--- NOTE | 2020-01-21 11:46 | Gastroenterology Progress Note ---
Date of Service January 21, 2020 Assessment & Plan (1) Diarrhea: Chronic diarrhea in the setting of hx of uterine CA with radiation. C- diff is (-). Differentials considered include radiation stricture with overflow, proctitis. Other possibilities include infectious diarrhea, SIBO. Pts family requesting IP colonoscopy for chronic diarrhea and pt defers to family stating she will go forward with the prep and procedure. Will prep today and plan for colonoscopy tomorrow. Admission and Anticipated Discharge Date Admission Date: January 08, 2020 Supervising Physician Co-Signing Physician Notes Attg add: I interviewed and examined pt, reviewed chart and labs. Pt with continued diarrhea. Plan cscopy tomorrow eval XRT proctitis, partial ob struction. Subjective 79 female, hx of uterine Ca post surgery, radiation. Chronic diarrhea since radiation, non bloody. No abd pain. On lomotil, staff documenting 1-3 loose BMs/day. Daughter requests IP colonoscopy. Review of Systems Review of Systems: ROS: Gen: Denies weakness, fevers, weight loss Eyes: No eye redness, or pain, no recent vision changes Resp: No SOB, no cough Cardio: No palpitations/irregular beats, no chest pain GI: See HPI, otherwise (-) : Denies pain on urination Skin: No jaundice, itching or new rashes Physical Exam Constitutional: WD/WN, vitals as above + obese Eyes: PERRL, conjunctivae normal, anicteric sclerae ENMT: external ear and nose normal, oropharynx normal Neck: trachea midline, no thyromegaly Respiratory: normal respiratory effort, lungs clear to auscultation Cardiovascular: RRR, no murmur, no edema Gastrointestinal (Abdomen): Percussion/Palpation: abdomen soft; abdomen nontender hyperactive BS Skin: no rashes, warm and dry Neurologic: PERRL, EOMI, accommodation nl, no face palsy, no dysarthria Psychiatric: A+Ox3, euthymic affect Insight: + limited insight Lymphatic: no cervical or axillary lymphadenopathy Results & Data ([facility]) Vital Signs (Past 12 Hours) Vital Signs Temp Pulse Pulse Pulse Resp BP BP 01/21/20 07:19 36.8 C 111 H 21 141/79 H 01/21/20 04:06 36.8 C 110 H 18 116/69 01/21/20 00:00 97 H 01/20/20 23:55 36.7 C 110 H 18 106/68 Pulse Ox 01/21/20 07:19 92 01/21/20 04:06 92 01/21/20 00:00 01/20/20 23:55 93
[2020-01-21] MEDS ORDERED: PHYTONADIONE 5 MG TAB PO STA (15:39)
--- NOTE | 2020-01-21 17:40 | Hospitalist Progress Note ---
Date of Service January 21, 2020 Assessment & Plan (1) Atrial fibrillation: Diarrhea History of radiation for uterine cancer (+) persistent diarrhea for almost [address] abdomen: 1. Enhancing irregular mass within the superior lateral quadrant of the right breast abuts the chest wall measuring up to 2.7 cm. Additionally, there are a few enhancing subcentimeter enhancing foci inferiorly and laterally to the dominant mass. Findings are suggestive of multifocal malignancy. Correlation with mammography is needed. 2. Mild/moderate left-sided hydroureteronephrosis with narrowing of the distal left ureter adjacent to surgical clips within the left hemipelvis. No obstructing mass or calculus identified. 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 Urology consultation recommended. 3. Small pleural effusions with dependent bibasilar atelectasis. 4. 1.5 cm splenic artery aneurysm. 5. No bowel obstruction or bowel wall thickening. Normal appendix. 6. Colonic diverticulosis. C diff: negative changed Imodium to Lomotil--> seems to be improving with Lomotil although still having average of 3 loose stools per day GI consulted, diarrhea felt to be possibly secondary to stricture versus proctitis On for colonoscopy tomorrow, GoLYTELY prep today, n.p.o. post midnight, Coumadin reversal per #1 New onset atrial fibrillation per Dr. Veliz's notes: Paroxysmal A. fib with RVR, new diagnosis during this hospital admission Echocardiogram : Shows no wall motion abnormality, ejection fraction 55-60% mildly dilated right ventricle with reduced right ventricular systolic failure suggestive of right heart failure Melter Loader consulted, placed on IV Cardizem and amiodarone IV Cardizem discontinued Amiodarone p.o. titrated with metoprolol p.o. Currently on amiodarone 200 mg p.o. daily, and metoprolol succinate 20 mg p.o. twice daily Still in A. fib but heart rate controlled For anticoagulation the patient was started on Coumadin with heparin bridging until INR was therapeutic INR today is 4.9 In light of colonoscopy tomorrow we will reverse Coumadin per GI recommendation Vitamin K 5 mg p.o. given Check INR tomorrow Once okay to resume anticoagulation per GI, may need bridging again with Coumadin--> discussed with cardiology Acute diastolic CHF in the setting of new onset A fib given IV Lasix now euvolemic Urinary tract infection Recurrent, Likely related to Urinary Retention, Incontinence Patient had recurrent urine tract infection at least 4 episodes in the last 6 months WBC: 12, UA: 3+ leuk est, >30 WBC, 5-10 RBC, 10-20 epithel, 3+bacteria Urine culture: E. coli, sensitive to Rocephin, ciprofloxacin given Ceftriaxone--> transitioned to Cephalexin completed 10 days of therapy Urinary Retention, Incontinence Left Ureteral Stenosis History of pelvic radiation treatment for endometrial carcinoma, chronic urinary incontinence Renal ultrasound: Kidneys demonstrate cortical atrophy. No hydronephrosis is s een on right/there is mild to moderate left hydronephrosis/bladder is decompressed around a Dias catheter CT abdomen pelvis: Mild/moderate left-sided hydroureteronephrosis with narrowing of the distal left ureter adjacent to surgical clips within the left hemipelvis. No obstructing mass or calculus identified. 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 -- Urologist re-consulted Repeat renal ultrasound: 1. Mild left renal hydroureteronephrosis. 2. This is considered unchanged from the prior study. 3. Mild bilateral cortical scarring also unchanged. -- Creatinine stable 1.1 Maintain Dias catheter per urology, until follow-up with the urologist as an outpatient CKD (chronic kidney disease), stage III Cr: 1.22. Baseline Cr: 1.2 stable at 1.1 monitor Right Breast Mass, New Diagnosis per Dr. Veliz's notes: CT abdomen pelvis with IV contrast shows possible new diagnosis of right-sided breast cancer, as documented on previous note Patient will need outpatient follow-up established for breast mammogram, breast biopsy Contacted [facility] breast cancer center, Discussed case briefly with breast cancer radiologist Dr. Ugalde All the diagnosis tests for breast cancer, mammogram, breast mass biopsy needs to be done as outpatient Breast cancer center coordinator Ethel rebecca Phone number #[phone] Given patient's [facility] Care center will contact patient and patient family to schedule outpatient follow-ups and diagnostic testing once patient is discharged from [facility] Weakness: Gradually improving Weakness probable secondary to UTI, electrolyte abnormality as per below -Fall precautions -Will need to transition to rehab upon discharge Hypokalemia: Admitted with potassium of 2.7 Due to GI loss, had multiple episodes of diarrhea, loose bowel movements Potassium replaced , resolved Nephrology consulted Hypomagnesemia: resolved HTN (hypertension): BP stable - Hold benazepril and HCTZ at this time-Due to dehydration - Continue metoprolol succinate DVT Prophylaxis -on coumadin (to be reversed tonight for colonoscopy tomorrow DNR/DNI as per discussion with pt Follows with Dr Gifford for routine care D/C to [facility] when medically stable Admission and Anticipated Discharge Date Admission Date: January 08, 2020 Subjective Follow-up for diarrhea, atrial fibrillation, etc. Seen resting in chair, comfortable, not in distress States she feels fine overall Except for mild abdominal discomfort secondary to initiation of GoLYTELY Denies chest pain, shortness of breath, palpitations, dizziness, No other symptoms Review of Systems Review of Systems: All systems reviewed & are unremarkable except as noted in HPI & below Physical Exam Physical Exam: General- oriented x 3, not in distress, speaks in sentences with no effort or accessory muscle use Eyes- anicteric Neck- no JVD Lungs- clear BS bilaterally, no crackles or wheezing Heart- normal rate, irregularly irregular rhythm; no murmurs Abdomen- normal bowel sounds, nondistended, soft, nontender Extremities- no pretibial edema, no calf tenderness B buttock and groin-areas of erythema-no signs of infection Neuro- alert, oriented x 3; no gross focal neurologic deficits Skin- warm & dry Results & Data Results & Data ([facility]) Vital Signs (Past 12 Hours) Vital Signs Temp Pulse Resp BP Pulse Ox 01/21/20 15:38 36.9 C 108 H 18 133/81 93 01/21/20 12:04 36.7 C 109 H 20 144/74 H 95 01/21/20 07:19 36.8 C 111 H 21 141/79 H 92 Laboratory Results Laboratory Results - last 24 hr 01/21/20 01/21/20 05:26 05:26 PT 47.2 H INR 4.9 H Sodium 143 Potassium 4.2 Chloride 113 H Carbon Dioxide 24 Anion Gap 6.0 BUN 16 Creatinine 1.16 Est Cr Clr Drug Dosing 44.9 Est GFR ( Amer) 51.1 Est GFR (Non-Af Amer) 44.1 BUN/Creatinine Ratio 13.4 Glucose 108 H Calcium 8.3 L
[2020-01-21] MEDS: TRAZODONE HCL 100 MG TAB PO PRN (21:09)
[2020-01-22] MEDS: SODIUM CHLORIDE 0.9% 1000ML 1,000 ML IV SCH (02:46)
[2020-01-22 06:55] LABS: INR 2.1 (0.9-1.1); Prothrombin Time 20.9 Seconds (9.0-12.0)
[2020-01-22 07:06] LABS: BUN Creatinine Ratio 11.7 (10-20); Calcium 8.3 mg/dl (8.5-10.1); Creatinine Clr Calc Pharmacy 53.2 ml/min; Est GFR (African American) 61.9; Est GFR (Non-African American) 53.4; Potassium 3.9 mmol/L (3.5-5.1)
[2020-01-22] MEDS: MICONAZOLE NITRATE POWDER 43 GM EXT SCH ×3 (07:50→21:16)
[2020-01-22] MEDS: METOPROLOL SUCC 50MG EXT REL TAB PO SCH ×2 (07:50→21:16)
[2020-01-22] MEDS: ENALAPRIL MALEATE 10 MG TAB PO SCH (07:50)
[2020-01-22] MEDS: ASCORBIC ACID 500 MG TAB PO SCH (07:50)
[2020-01-22] MEDS: LACTOBACILLUS ACIDOPHILUS (FLORANEX) TAB PO SCH ×4 (07:50→21:16)
[2020-01-22] MEDS: SERTRALINE HCL 50 MG TABLET PO SCH (07:50)
[2020-01-22] MEDS: AMIODARONE 200 MG TAB PO SCH (07:50)
--- NOTE | 2020-01-22 11:45 | Hospitalist Progress Note ---
Date of Service January 22, 2020 Assessment & Plan (1) Atrial fibrillation: Diarrhea History of radiation for uterine cancer (+) persistent diarrhea for almost [address] abdomen: 1. Enhancing irregular mass within the superior lateral quadrant of the right breast abuts the chest wall measuring up to 2.7 cm. Additionally, there are a few enhancing subcentimeter enhancing foci inferiorly and laterally to the dominant mass. Findings are suggestive of multifocal malignancy. Correlation with mammography is needed. 2. Mild/moderate left-sided hydroureteronephrosis with narrowing of the distal left ureter adjacent to surgical clips within the left hemipelvis. No obstructing mass or calculus identified. 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 Urology consultation recommended. 3. Small pleural effusions with dependent bibasilar atelectasis. 4. 1.5 cm splenic artery aneurysm. 5. No bowel obstruction or bowel wall thickening. Normal appendix. 6. Colonic diverticulosis. C diff: negative changed Imodium to Lomotil--> seems to be improving with Lomotil although still having average of 3 loose stools per day GI consulted, diarrhea felt to be possibly secondary to stricture versus proctitis colonoscopy planned for 01/22/2020 Paroxysmal Atrial fibrillation with Rapid Ventricular Response -new diagnosis during this hospital admission of atrial fibrillation -Echocardiogram : Shows no wall motion abnormality, ejection fraction 55-60% mildly dilated right ventricle with reduced right ventricular systolic failure suggestive of right heart failure -initially with complex manager consult who started IV Cardizem and amiodarone; then IV Cardizem discontinued and patient transitioned to oral amiodarone and metoprolol -Currently on amiodarone 200 mg p.o. daily, and metoprolol succinate 20 mg p.o. twice daily -initially was on heparin IV bridged to coumadin but because of supratherapeutic INR of 4.9 on 01/21/2020 and plans for colonoscopy, patient was given Vitamin K on 01/21/2020. INR is 2.1 on 01/22/2020 Acute diastolic CHF in the setting of new onset A fib -initially was given IV Lasix -now euvolemic Urinary tract infection Recurrent, Likely related to Urinary Retention, Incontinence -Patient had recurrent urine tract infection at least 4 episodes in the last 6 months -WBC: 12, UA: 3+ leuk est, >30 WBC, 5-10 RBC, 10-20 epithel, 3+bacteria Urine culture: E. coli, sensitive to Rocephin, ciprofloxacin given Ceftriaxone--> transitioned to Cephalexin (completed 10 days of total antibiotic therapy) Urinary Retention, Incontinence Left Ureteral Stenosis History of pelvic radiation treatment for endometrial carcinoma, chronic urinary incontinence Renal ultrasound: Kidneys demonstrate cortical atrophy. No hydronephrosis is seen on right/there is mild to moderate left hydronephrosis/bladder is decompressed around a Dias catheter CT abdomen pelvis: Mild/moderate left-sided hydroureteronephrosis with narrowing of the distal left ureter adjacent to surgical clips within the left hemipelvis. No obstructing mass or calculus identified. 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 -- Urologist re-consulted Repeat renal ultrasound: 1. Mild left renal hydroureteronephrosis. 2. This is considered unchanged from the prior study. 3. Mild bilateral cortical scarring also unchanged. -Maintain Dias catheter per urology, until follow-up with the urologist as an outpatient CKD (chronic kidney disease), stage III HTN (hypertension) -on enalapril 10 mg daily Hypokalemia, Hypomagnesemia -Admitted with potassium of 2.7, due to GI loss, had multiple episodes of diarrhea, loose bowel movements -potassium supplements were given on thsi admission, monitor the serum potassium and serum magnesium with the bowel movements Right Breast Mass, New Diagnosis per Dr. Veliz's notes: "CT abdomen pelvis with IV contrast shows possible new diagnosis of right-sided breast cancer, as documented on previous note Patient will need outpatient follow-up established for breast mammogram, breast biopsy Contacted [facility] breast cancer center, Discussed case briefly with breast cancer radiologist Dr. Ugalde All the diagnosis tests for breast cancer, mammogram, breast mass biopsy needs to be done as outpatient Breast cancer center coordinator Ethel fernandez Phone number #[phone] Given patient's [facility] will contact patient and patient family to schedule outpatient follow-ups and diagnostic testing once patient is discharged from [facility]" Weakness -may benefit with physical therapy center placement after hospital stay DVT Prophylaxis -on coumadin DNR/DNI as per discussion with pt Follows with Dr Gifford for routine care Admission and Anticipated Discharge Date Admission Date: January 08, 2020 Subjective Patient has DIGNISHIELD. nurse reported bowel movement around 500 cc from overnight. patient denies acute abdomen pain. no vomiting. on room air. no chest pain. no dizziness. Review of Systems Review of Systems: All systems reviewed & are unremarkable except as noted in Subjective Physical Exam Constitutional: + obese and comfortable Eyes: PERRL, conjunctivae normal, anicteric sclerae ENMT: external ear and nose normal, oropharynx normal Neck: trachea midline, no thyromegaly normal visual inspection Respiratory: normal respiratory effort, lungs clear to auscultation Cardiovascular: Rate/Rhythm: regular rate Gastrointestinal (Abdomen): normal bowel sounds, soft, nontender, no hepatosplenomegaly Musculoskeletal: Head/Neck/Chest: normocephalic and head atraumatic Neurologic: PERRL, EOMI, accommodation nl, no face palsy, no dysarthria CN's II-XI intact bilaterally Psychiatric: A+Ox3, euthymic affect Genitourinary: buttock has DIGNISHIELD Results & Data Results & Data ([facility]) Vital Signs (Past 12 Hours) Vital Signs Temp Pulse Pulse Resp BP Pulse Ox 01/22/20 11:22 37.2 C 100 H 19 129/70 92 01/22/20 07:12 36.7 C 104 H 19 137/90 91 01/22/20 03:19 37.0 C 98 H 19 109/75 90 01/21/20 23:59 116 H 01/21/20 23:49 36.8 C 106 H 17 102/68 91
--- NOTE | 2020-01-22 11:47 | Gastroenterology Progress Note ---
Date of Service January 22, 2020 Assessment & Plan (1) Diarrhea: Differentials considered include radiation proctitis, microscopic colitis and IBD. Colonoscopy today by Dr. Beasley. Further recommendations to follow. Attg add: I interviewed and examined pt, reviwed chart and labs. CV RRR, Resp CTA. Plan cscopy today. Present on Admission?: Yes Admission and Anticipated Discharge Date Admission Date: January 08, 2020 Subjective 79 female, hx ofHTN, HLD, CKD III, uterine Ca S/P surgery and radiation in 2017, depression who presented to [facility] on 01/07 for weakness and has been treated for hypokalemia, hypomagnesium, UTI and A-fib (anticoagulated, INR 2.1) Chronic diarrhea since radiation, non bloody. No abd pain. On lomotil, staff documenting 1-3 loose BMs/day. Pt is prepped for colonoscopy today. Feels well. No events. Review of Systems Review of Systems: ROS: Gen: Denies weakness, fevers, weight loss Eyes: No eye redness, or pain, no recent vision changes Resp: No SOB, no cough Cardio: No palpitations/irregular beats, no chest pain GI: See HPI, otherwise (-) : Denies pain on urination Skin: No jaundice, itching or new rashes Physical Exam Constitutional: WD/WN, vitals as above + obese Eyes: PERRL, conjunctivae normal, anicteric sclerae ENMT: external ear and nose normal, oropharynx normal Neck: trachea midline, no thyromegaly Respiratory: normal respiratory effort, lungs clear to auscultation Cardiovascular: RRR, no murmur, no edema Gastrointestinal (Abdomen): Percussion/Palpation: abdomen soft; abdomen non tender Skin: no rashes, warm and dry Neurologic: PERRL, EOMI, accommodation nl, no face palsy, no dysarthria Psychiatric: A+Ox3, euthymic affect Insight: + limited insight Lymphatic: no cervical or axillary lymphadenopathy Results & Data ([facility]) Vital Signs (Past 12 Hours) Vital Signs Temp Pulse Pulse Resp BP Pulse Ox 01/22/20 11:22 37.2 C 100 H 19 129/70 92 01/22/20 07:12 36.7 C 104 H 19 137/90 91 01/22/20 03:19 37.0 C 98 H 19 109/75 90 01/21/20 23:59 116 H 01/21/20 23:49 36.8 C 106 H 17 102/68 91
[2020-01-22] MEDS ORDERED: ATROPINE SULFATE 0.1 MG/ML 10ML SYR IV PRN (12:41)
[2020-01-22] MEDS ORDERED: ePHEDrine sulfate 50 MG/ML AMP IV PRN (12:41)
--- NOTE | 2020-01-22 12:41 | Anesthesiology Consultation ---
Date of Service January 22, 2020 Assessment & Plan ASA ASA3 Proposed Anesthesia Anesthesia Type: MAC Risk / Benefits Reviewed With: PT / POA / Parent / Guardian, Accepts Plan and Informed Consent Obtained History Surgery Operation Date: 01/22/20 16:45 Proposed Procedures p Colonoscopy Dr Beasley - Jewell Beasley Height/Weight Height: 5 ft 6 in Weight: 100.1 kg Allergies Allergy/AdvReac Type Severity Reaction Status Date / Time No Known Allergies Allergy Verified 01/08/20 17:02 Medications Home Medications Medication Instructions Recorded Confirmed Last Taken ascorbic acid (vitamin C) [Vitamin 1 g PO DAILY 01/08/20 01/08/20 01/08/20 C] atorvastatin [Lipitor] 40 mg PO DAILY 01/08/20 01/08/20 01/08/20 benazepril [Lotensin] 10 mg PO DAILY 01/08/20 01/08/20 01/08/20 cholecalciferol (vitamin D3) 25 mcg PO DAILY 01/08/20 01/08/20 01/08/20 [Vitamin D3] hydrochlorothiazide 25 mg PO DAILY 01/08/20 01/08/20 01/08/20 magnesium oxide 400 mg PO DAILY 01/08/20 01/08/20 01/08/20 metoprolol succinate [Toprol XL] 100 mg PO DAILY 01/08/20 01/08/20 01/08/20 oxycodone-acetaminophen [Percocet] 1 tab PO Q6 PRN 01/08/20 01/08/20 01/08/20 sertraline [Zoloft] 150 mg PO DAILY 01/08/20 01/08/20 01/08/20 trazodone 100 mg PO HS PRN 01/08/20 01/08/20 01/07/20 Active Medications Generic Name Dose Route Start Last Admin Trade Name Freq PRN Reason Stop Dose Admin Acetaminophen 650 mg 01/08/20 18:19 01/20/20 20:38 Tylenol PO 02/07/20 18:18 650 mg Q4H PRN Administration Pain or Fever Amiodarone HCl 200 mg 01/17/20 09:00 01/22/20 07:50 Cordarone PO 02/16/20 08:59 200 mg DAILY SARHA Administration Ascorbic Acid 1,000 mg 01/09/20 09:00 01/22/20 07:50 Vitamin C PO 02/08/20 08:59 1,000 mg DAILY SARAH Administration Atorvastatin Calcium 40 mg 01/09/20 09:00 01/18/20 09:36 Lipitor PO 02/08/20 08:59 40 mg DAILY SARAH Administration Calamine/Phenol 1 appln 01/17/20 17:19 01/19/20 05:47 Calmoseptine EXT 02/16/20 20:59 1 appln BID PRN Administration skin irritation Diphenoxylate HCl/Atropine 1 tab 01/17/20 17:14 01/20/20 16:53 Lomotil PO 02/16/20 17:13 1 tab QID PRN Administration Diarrhea Enalapril Maleate 10 mg 01/15/20 09:00 01/22/20 07:50 Vasotec PO 02/14/20 08:59 10 mg DAILY SARAH Administration Protocol Sodium Chloride 1,000 mls @ 60 mls/hr 01/18/20 15:00 01/22/20 02:46 Nss 1000ml IV 02/17/20 14:59 60 mls/hr .[id number] SARAH Administration Lactobacillus Acidophilus 4 tab 01/17/20 20:00 01/22/20 07:50 Floranex PO 02/16/20 19:59 4 tab 0800,1200,1600,2000 SARAH Administration Metoprolol Succinate 100 mg 01/20/20 21:00 01/22/20 07:50 Toprol Xl PO 02/19/20 20:59 100 mg BID SARAH Administration Miconazole Nitrate 1 appln 01/20/20 19:45 01/22/20 07:50 Desenex EXT 02/19/20 19:44 1 appln TID SARAH Administration Oxycodone/Acetaminophen 1 tab 01/08/20 20:11 01/21/20 21:08 Percocet 5mg/325mg PO 01/22/20 20:10 1 tab Q6 PRN Administration Pain Potassium Chloride 20 meq 01/09/20 21:00 01/16/20 19:55 Klor-Con M20 PO 02/08/20 20:59 20 meq BID SARAH Administration Sertraline HCl 150 mg 01/09/20 09:00 01/22/20 07:50 Zoloft PO 02/08/20 08:59 150 mg DAILY SARAH Administration Trazodone HCl 100 mg 01/08/20 20:11 01/21/20 21:09 Desyrel PO 02/07/20 20:10 100 mg HS PRN Administration Insomnia Warfarin Sodium 5 mg 01/12/20 16:00 01/20/20 16:51 Coumadin PO 02/11/20 15:59 5 mg DAILY@1600 SARAH Administration NPO Date Last Intake of Fluids: 01/21/20 Time Last Intake of Fluids: 23:30 Date Last Intake of Solids: 01/18/20 Time Last Intake of Solids: 18:00 Past Medical History Medical History Chronic back pain CKD (chronic kidney disease), stage III Depression HLD (hyperlipidemia) HTN (hypertension) (Chronic) Macular degeneration Exercise / Class Metabolic Activity II 4-5 Yardwork/Stairs/Walk up hill Past Family History Family History Father Coronary heart disease Mother Coronary heart disease Other Cancer Past Surgical History Surgical History History of cholecystectomy History of hysterectomy History of total knee arthroplasty Past Anesthesia History No Hx of Anesthesia Complications and No Family Hx of Anesthesia Complications History of PONV No Hx of PONV and No Hx of Motion Sickness Social History Smoking Status: Never smoker Hx Alcohol Use: No Hx Substance Use: No Review of Systems denies fever/cough/ colds/ chest pain/ SOB/ OLIVIA Constitutional: no fever and no chills Respiratory: no cough and no dyspnea denies OLIVIA Cardiovascular: no chest pain and no dyspnea on exertion Physical Exam Vital Signs Last Vital Signs Temp 36.6 C 01/22/20 12:29 Pulse 102 H 01/22/20 12:29 Resp 18 01/22/20 12:29 BP 158/88 H 01/22/20 12:29 Pulse Ox 92 01/22/20 12:29 ENMT Mouth: no TMJ abnormality and no dentition abnormality Thyromental Distance: > or= 3.5 Finger Breadths Mallampati Class: II Neck neck extension not limited Respiratory normal respiratory effort; no respiratory distress Auscultation: lungs clear to auscultation bilaterally Cardiovascular Rate/Rhythm: regular rate and regular rhythm Neurologic moves all extremities Psychiatric Orientation: alert and oriented x 3 Testing Laboratory Results 01/09/20 06:56 01/22/20 06:11 PT 20.9 Seconds (9.0-12.0) H 01/22/20 06:11 INR 2.1 (0.9-1.1) H 01/22/20 06:11 APTT 55.2 Seconds (21.0-31.0) H* 01/16/20 14:06 Urine Color Yellow 01/08/20 16:30 Urine Appearance Cloudy (Clear) A 01/08/20 16:30 Urine pH 6.0 (4.5-7.5) 01/08/20 16:30 Ur Specific [place] 1.015 (1.000-1.030) 01/08/20 16:30 Urine Protein 1+ (Negative) H 01/08/20 16:30 Urine Glucose (UA) Negative (Negative) 01/08/20 16:30 Urine Ketones Negative (Negative) 01/08/20 16:30 Urine Nitrite Negative (Negative) 01/08/20 16:30 Ur Leukocyte Esterase 3+ (Negative) H 01/08/20 16:30 Urine WBC (Auto) >30 /hpf (0-5) H 01/08/20 16:30 Urine RBC (Auto) 5-10 /hpf (0-4) H 01/08/20 16:30 U Hyaline Cast (Auto) 0 /lpf (0-5) 01/08/20 16:30 U Epithel Cells (Auto) 10-20 /lpf (0-5) H 01/08/20 16:30 Urine Bacteria (Auto) 3+ (Negative) H 01/08/20 16:30 01/08/20 16:30 Urine Culture - Final Urine,Clean Catch Escherichia coli
[2020-01-22] MEDS ORDERED: LIDOCAINE HCL 2% 2 ML VIAL/AMP(20MG/ML) INFIL ONE (13:45)
[2020-01-22] MEDS ORDERED: PROPOFOL IV EMULSION 10 MG/ML 20 ML VIAL IV ONE ×2 (13:45→14:44)
[2020-01-22] MEDS ORDERED: PHENYLEPHRINE 100MCG/ML 5ML SYR ONE (14:44)
--- NOTE | 2020-01-22 14:57 | GI REPORT ---
Patient Name: Alyce Myers Procedure Date: 01/22/2020 2:02 PM Date of : 1940 Admit Type: Inpatient Age: 79 Gender: Female Attending MD: Jewell Beasley MD Procedure: Colonoscopy Providers: Jewell Beasley MD Referring MD: Darrell Moser M.d. Indications: Chronic diarrhea Medicines: See the Anesthesia note for documentation of the administered medications Complications: No immediate complications. Estimated Blood Loss: Estimated blood loss: none. Procedure: Pre-Anesthesia Assessment: - ASA Grade Assessment: III - A patient with severe systemic disease. After I obtained informed consent, the scope was passed under direct vision. Throughout the procedure, the patient's blood pressure, pulse, and oxygen saturations were monitored continuously. The Scope was introduced through the anus with the intention of advancing to the cecum. The scope was advanced to the sigmoid colon before the procedure was aborted. Medications were given. The Colonoscope was introduced through the and advanced to. The Endoscope was introduced through the and advanced to. The colonoscopy was performed without difficulty. Findings: There was erythema of the perianal skin. There were multiple telangiectasias in the rectum. The colon lumen was markedly narrowed from 20-25, precluding passage of the upper endoscope and ultrathin colonoscope. There was no mass lesion; the obstruction may be extrinsic, related to external compression or possibly related to diverticular disease or radiation. Impression: Recto sigmoid stricture. She likely has post-obstructive diarrhea. Recommendation: - Discharge patient to floor. Consider gastrograffin enema, surgery consult. Jewell Beasley M.D. Jewell Beasley MD 01/22/2020 2:57:26 PM This report has been signed electronically. Note Initiated On: 01/22/2020 2:02 PM Number of Addenda: 0 I attest to the content of the Intraoperative Record and orders documented therein, exceptions below {[id number]}
--- NOTE | 2020-01-22 15:11 | Anesthesiology Progress Note ---
Date of Service January 22, 2020 Anesthesia Post Procedure Vital Signs Vital Signs: Temp Pulse Pulse Pulse Resp BP BP 01/22/20 14:55 102 H 16 125/91 01/22/20 12:29 36.6 C 102 H 102 H 18 158/88 H 01/22/20 11:22 37.2 C 100 H 19 129/70 01/22/20 07:12 36.7 C 104 H 19 137/90 01/22/20 03:19 37.0 C 98 H 19 109/75 01/21/20 23:59 116 H 01/21/20 23:49 36.8 C 106 H 17 102/68 01/21/20 19:53 37.1 C 111 H 19 137/80 01/21/20 15:38 36.9 C 108 H 18 133/81 Pulse Ox 01/22/20 14:55 93 01/22/20 12:29 92 01/22/20 11:22 92 01/22/20 07:12 91 01/22/20 03:19 90 01/21/20 23:59 01/21/20 23:49 91 01/21/20 19:53 94 01/21/20 15:38 93 Pain Intensity Buttock: Pain Intensity: 3 Right Shoulder: Pain Intensity: 4 Right Knee: Pain Intensity: 6 Back: Pain Intensity: 4 Transfer of Care Handoff Completed per policy Notes Mental Status: alert / awake / arousable and participated in evaluation Patient Amnestic to Procedure: Yes Nausea / Vomiting: adequately controlled Pain: adequately controlled Airway Patency, RR, SpO2: stable & adequate BP & HR: stable & adequate Hydration State: stable & adequate Anesthetic Complications: no major complications apparent and Pt Satisfied with anesthetic care
[2020-01-22] MEDS ORDERED: D5W AND 1/2NSS 1,000 ML IV SCH (16:00)
[2020-01-22] MEDS ORDERED: FUROSEMIDE 40 MG in SYRINGE 0 ML IV ONE (16:30)
--- NOTE | 2020-01-22 17:00 | XRay Report ---
XR chest 1V portable CLINICAL HISTORY: Annual chest x-ray. Pulmonary infiltrates. COMPARISON STUDY: 01/09/2020 FINDINGS: The heart is enlarged. There is elevation of interstitium suggesting pulmonary vascular con gestion/fluid overload. There are small bilateral pleural effusions with associated basilar airspace opacities likely atelectatic although a superimposed inflammatory process cannot be excluded[ IMPRESSION: 1. Cardiomegaly small bilateral pleural effusions and radiographic evidence of mild congestive failur e/fluid overload 2. Bibasilar opacities, atelectasis favored over pneumonia ACT 112: Negative or not required by law. Electronically signed by: Brijesh Madrid M.D. 01/22/2020 4:58 PM
[2020-01-22] MEDS: DIPHENOXYLATE/ATROPINE 2.5/0.025MG TAB PO PRN (18:49)
--- NOTE | 2020-01-22 20:12 | Surgery Consultation ---
Date of Consultation January 22, 2020 Assessment & Plan (1) Diarrhea: pt is a 79 year-old female who was admitted to hospital for diarrhea, colonoscopy finding rectosigmoid stricture, IMP: rectosigmoid stricture, diarrhea, possible relate to radiatio treatment, plan, now no emergent surgery indication now, I recommend to follow up with colorectal surgeon out-patient once discharge patient from hospital, for colorectal surgeon appointment, call [phone] [facility]. sign off today, please call with questions, Thanks, (2) Sigmoid stricture: History of Present Illness Attending Physician: Darrell Moser MD Reason for Consultation: rectosigmoid stricture,Diarrhea CC: diarrhea History of Present Illness Ms. Alyce Myers is an 79 yr old female pt of Dr. Gifford with a hx of PMH HTN, HLD, CKD III, uterine Ca S/P surgery and radiation in 2016, depression who presented to [facility] on 01/07 for weakness and has been treated for hypokalemia, hypomagnesium, UTI and A-fib (anticoagulated, INR 2.7). GI is consulted for chronic diarrhea. Pt is unable to tell me how many times/day but believes this began soon after radiation in 2017 for uterine cancer. The ED notes says that she reported about 2-3/day. She believes that she has lost about 30 lbs in the past month or so. Stools are (-) for C-diff. TSH was normal in November. Nursing says that Lomotil seems to be working, that she had 3 BMs yesterday, one thus far today. Of note, she is on Mag oxide as a home pt. I ( Denny Maxwell MD ) got a call for consult rectosigmoid stricture and diarrhea, I reviewed pt' H/P, labs, CT scan, colonoscopy finding with pt, pt has been diarrhea 3-4 times a day since 2017, after hysterectomy and radiation for endometrial adenocarcinoma. pt denies abdominal pain, no nausea, no vomiting, no fever, Allergies Allergy/AdvReac Type Severity Reaction Status Date / Time No Known Allergies Allergy Verified 01/08/20 17:02 Home Medications Home Medications Medication Instructions Recorded Confirmed Type ascorbic acid (vitamin C) [Vitamin 1 g PO DAILY 01/08/20 01/08/20 History C] atorvastatin [Lipitor] 40 mg PO DAILY 01/08/20 01/08/20 History benazepril [Lotensin] 10 mg PO DAILY 01/08/20 01/08/20 History cholecalciferol (vitamin D3) 25 mcg PO DAILY 01/08/20 01/08/20 History [Vitamin D3] hydrochlorothiazide 25 mg PO DAILY 01/08/20 01/08/20 History magnesium oxide 400 mg PO DAILY 01/08/20 01/08/20 History metoprolol succinate [Toprol XL] 100 mg PO DAILY 01/08/20 01/08/20 History oxycodone-acetaminophen [Percocet] 1 tab PO Q6 PRN 01/08/20 01/08/20 History sertraline [Zoloft] 150 mg PO DAILY 01/08/20 01/08/20 History trazodone 100 mg PO HS PRN 01/08/20 01/08/20 History Patient History Medical History Chronic back pain CKD (chronic kidney disease), stage III Depression HLD (hyperlipidemia) HTN (hypertension) (Chronic) Macular degeneration Surgical History History of cholecystectomy History of hysterectomy History of total knee arthroplasty Family History Father Coronary heart disease Mother Coronary heart disease Other Cancer Social History Smoking Status: Never smoker Hx Alcohol Use: No Hx Substance Use: No Preferred Language: Gibraltarian Communication Ability: Effective Beliefs That Will Affect Care: None marital status: Unknown Current Living Situation: Alone Feels Safe at Home: Yes Results & Data ([facility]) Vital Signs (Past 12 Hours) Vital Signs Temp Pulse Resp BP Pulse Ox 01/20/20 07:34 36.8 C 114 H 18 115/69 95 01/20/20 03:31 36.6 C 122 H 18 103/58 L 93 01/19/20 23:15 36.6 C 127 H 19 106/61 93 Laboratory Results WBC 8, Hb 10, Hct 32, Platelets 167, INR 2.7, Na 142, K 4.3, BUN 16, Cr 1.5. Diagnostic Findings CT with IV contrast 01/13/20: 1. Enhancing irregular mass within the superior lateral quadrant of the right breast abuts the chest wall measuring up to 2.7 cm. Additionally, there are a few enhancing subcentimeter enhancing foci inferiorly and laterally to the dominant mass. Findings are suggestive of multifocal malignancy. Correlation with mammography is needed. 2. Mild/moderate left-sided hydroureteronephrosis with narrowing of the distal left ureter adjacent to surgical clips within the left hemipelvis. No obstructing mass or calculus identified. 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 Urology consultation recommended. 3. Small pleural effusions with dependent bibasilar atelectasis. 4. 1.5 cm splenic artery aneurysm. 5. No bowel obstruction or bowel wall thickening. Normal appendix. 6. Colonic diverticulosis. Allergies Allergy/AdvReac Type Severity Reaction Status Date / Time No Known Allergies Allergy Verified 01/08/20 17:02 Home Medications Home Medications Medication Instructions Recorded Confirmed Type ascorbic acid (vitamin C) [Vitamin 1 g PO DAILY 01/08/20 01/08/20 History C] atorvastatin [Lipitor] 40 mg PO DAILY 01/08/20 01/08/20 History benazepril [Lotensin] 10 mg PO DAILY 01/08/20 01/08/20 History cholecalciferol (vitamin D3) 25 mcg PO DAILY 01/08/20 01/08/20 History [Vitamin D3] hydrochlorothiazide 25 mg PO DAILY 01/08/20 01/08/20 History magnesium oxide 400 mg PO DAILY 01/08/20 01/08/20 History metoprolol succinate [Toprol XL] 100 mg PO DAILY 01/08/20 01/08/20 History oxycodone-acetaminophen [Percocet] 1 tab PO Q6 PRN 01/08/20 01/08/20 History sertraline [Zoloft] 150 mg PO DAILY 01/08/20 01/08/20 History trazodone 100 mg PO HS PRN 01/08/20 01/08/20 History Patient History Medical History Chronic back pain CKD (chronic kidney disease), stage III Depression HLD (hyperlipidemia) HTN (hypertension) (Chronic) Macular degeneration Surgical History History of cholecystectomy History of hysterectomy History of total knee arthroplasty Family History Father Coronary heart disease Mother Coronary heart disease Other Cancer Social History Smoking Status: Never smoker Hx Alcohol Use: No Hx Substance Use: No Preferred Language: [place]raltarian Communication Ability: Effective Beliefs That Will Affect Care: None marital status: Unknown Current Living Situation: Alone Feels Safe at Home: Yes Review of Systems Review of Systems: All systems reviewed & are unremarkable except as noted in HPI & below Eyes: as per Subjective / HPI Ear, Nose, Mouth, Throat: as per Subjective / HPI Respiratory: as per Subjective / HPI breast mass Cardiovascular: as per Subjective / HPI Additional Comments: A-fib Gastrointestinal: as per Subjective / HPI diarrhea Genitourinary: as per Subjective / HPI CKD, endometrial adenocarcinoma, UTI hydronephrosis Musculoskeletal: as per Subjective / HPI Integumentary: as per Subjective / HPI Neurologic: as per Subjective / HPI Psychiatric: as per Subjective / HPI Endocrine: as per Subjective / HPI Hematologic / Lymphatic: as per Subjective / HPI Allergy / Immunological: as per Subjective / HPI Physical Exam Constitutional: WD/WN, vitals as above well developed and well nourished Eyes: PERRL, conjunctivae normal, anicteric sclerae ENMT: external ear and nose normal, oropharynx normal Neck: trachea midline, no thyromegaly Respiratory: normal respiratory effort, lungs clear to auscultation Cardiovascular: A-fib Gastrointestinal (Abdomen): normal bowel sounds, soft, nontender, no h epatosplenomegaly soft, NT, ND, rectal exam: no mass on rectum, no active bleeding, no tenderness, Musculoskeletal: no cyanosis or clubbing, extremities motor strength 5/5 Skin: no rashes, warm and dry Neurologic: patellar DTR's 2+ bilat, sensation intact Psychiatric: Orientation: alert and oriented x 3 Results & Data Vital Signs (Past 12 Hours) Vital Signs Temp Pulse Pulse Resp BP BP Pulse Ox 01/22/20 15:54 36.3 C L 90 20 134/75 94 01/22/20 15:34 90 01/22/20 15:25 114 H 16 123/77 93 01/22/20 15:10 107 H 16 115/79 91 01/22/20 14:55 102 H 16 125/91 93 01/22/20 12:29 36.6 C 102 H 102 H 18 158/88 H 92 01/22/20 11:22 37.2 C 100 H 19 129/70 92 Laboratory Results Abnormal lab results 01/22/20 01/22/20 Range/Units 06:11 06:11 PT 20.9 H (9.0-12.0) Seconds INR 2.1 H (0.9-1.1) Chloride 114 H (98-107) mmol/L Glucose 110 H (70-99) mg/dl Calcium 8.3 L (8.5-10.1) mg/dl Diagnostic Findings colonoscopy-Findings: There was erythema of the perianal skin. There were multiple telangiectasias in the rectum. The colon lumen was markedly narrowed from 20-25, precluding passage of the upper endoscope and ultrathin colonoscope. There was no mass lesion; the obstruction may be extrinsic, related to external compression or possibly related to diverticular disease or radiation. Impression: Recto sigmoid stricture. She likely has post-obstructive diarrhea.
[2020-01-22] MEDS: TRAZODONE HCL 100 MG TAB PO PRN (21:16)
[2020-01-23 06:34] LABS: INR 1.3 (0.9-1.1); Prothrombin Time 13.6 Seconds (9.0-12.0)
[2020-01-23] MEDS ORDERED: D5W AND 1/2NSS 1,000 ML IV SCH (07:00)
[2020-01-23 07:02] LABS: Albumin Level 2.4 gm/dl (3.4-5.0); BUN Creatinine Ratio 11.3 (10-20); Calcium 8.5 mg/dl (8.5-10.1); Creatinine Clr Calc Pharmacy 49.7 ml/min; Est GFR (Non-African American) 49.2; Magnesium 1.6 mg/dl (1.8-2.4); Potassium 3.7 mmol/L (3.5-5.1)
[2020-01-23 07:05] LABS: Albumin Globulin Ratio 0.5 (0.9-2); Bilirubin,Total 0.5 mg/dl (0.2-1); Globulin 4.5 gm/dl (2.5-4.0); Total Protein 6.9 gm/dl (6.4-8.2)
[2020-01-23] MEDS: SERTRALINE HCL 50 MG TABLET PO SCH (08:29)
[2020-01-23] MEDS: LACTOBACILLUS ACIDOPHILUS (FLORANEX) TAB PO SCH ×4 (08:29→22:02)
[2020-01-23] MEDS: METOPROLOL SUCC 50MG EXT REL TAB PO SCH ×2 (08:30→22:07)
[2020-01-23] MEDS: AMIODARONE 200 MG TAB PO SCH (08:30)
[2020-01-23] MEDS: ASCORBIC ACID 500 MG TAB PO SCH (08:30)
[2020-01-23] MEDS: ENALAPRIL MALEATE 10 MG TAB PO SCH (08:30)
[2020-01-23] MEDS: MICONAZOLE NITRATE POWDER 43 GM EXT SCH ×3 (08:33→22:05)
[2020-01-23] MEDS: ACETAMINOPHEN 325 MG TAB PO PRN ×2 (09:07→22:01)
--- NOTE | 2020-01-23 09:50 | Hospitalist Progress Note ---
Date of Service January 23, 2020 Assessment & Plan (1) Atrial fibrillation: Paroxysmal Atrial fibrillation with Rapid Ventricular Response -new diagnosis during this hospital admission of atrial fibrillation -Echocardiogram : Shows no wall motion abnormality, ejection fraction 55-60% mildly dilated right ventricle with reduced right ventricular systolic failure suggestive of right heart failure -initially with efficiency expert consult who started IV Cardizem and amiodarone; then IV Cardizem discontinued and patient transitioned to oral amiodarone and metoprolol -Currently on amiodarone 200 mg p.o. daily, and metoprolol succinate 100 mg p.o. twice daily -initially was on heparin IV bridged to coumadin but because of supratherapeutic INR of 4.9 on 01/21/2020 and plans for colonoscopy, patient was given Vitamin K on 01/21/2020. INR is 2.1 on 01/22/2020. -INR is 1.3 on 01/23/2020, await gastrografin enema study for further evaluation of Recto sigmoid stricture but likely can resume coumadin afterwards Acute diastolic CHF in the setting of new onset A fib -initially was given IV Lasix -now euvolemic Urinary tract infection Recurrent, Likely related to Urinary Retention, Incontinence -Patient had recurrent urine tract infection at least 4 episodes in the last 6 months -WBC: 12, UA: 3+ leuk est, >30 WBC, 5-10 RBC, 10-20 epithel, 3+bacteria Urine culture: E. coli, sensitive to Rocephin, ciprofloxacin given Ceftriaxone--> transitioned to Cephalexin (completed 10 days of total antibiotic therapy) Urinary Retention, Incontinence Left Ureteral Stenosis History of pelvic radiation treatment for endometrial carcinoma, chronic urinary incontinence Renal ultrasound: Kidneys demonstrate cortical atrophy. No hydronephrosis is seen on right/there is mild to moderate left hydronephrosis/bladder is dec ompressed around a Duran catheter CT abdomen pelvis: Mild/moderate left-sided hydroureteronephrosis with narrowing of the distal left ureter adjacent to surgical clips within the left hemipelvis. No obstructing mass or calculus identified. 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 -- Urologist re-consulted Repeat renal ultrasound: 1. Mild left renal hydroureteronephrosis. 2. This is considered unchanged from the prior study. 3. Mild bilateral cortical scarring also unchanged. -Maintain Duran catheter per urology, until follow-up with the urologist as an outpatient CKD (chronic kidney disease), stage III HTN (hypertension) -on enalapril 10 mg daily Recto sigmoid stricture post-obstructive diarrhea -History of radiation for uterine cancer CT abdomen: 1. Enhancing irregular mass within the superior lateral quadrant of the right breast abuts the chest wall measuring up to 2.7 cm. Additionally, there are a few enhancing subcentimeter enhancing foci inferiorly and laterally to the dominant mass. Findings are suggestive of multifocal malignancy. Correlation with mammography is needed. 2. Mild/moderate left-sided hydroureteronephrosis with narrowing of the distal left ureter adjacent to surgical clips within the left hemipelvis. No obstructing mass or calculus identified. 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 Urology consultation recommended. 3. Small pleural effusions with dependent bibasilar atelectasis. 4. 1.5 cm splenic artery aneurysm. 5. No bowel obstruction or bowel wall thickening. Normal appendix. 6. Colonic diverticulosis. C diff: negative -patient had protracted diarrhea and loose bowel movements, on Lomotil -Recto sigmoid stricture as per gastroenterology impression in regards to the 01/22/2020 colonoscopy and that this is likely cause of post-obstructive diarrhea. gastrografin enema ordered for 01/23/2020 -general surgery evaluated and advising colo-rectal surgery evaluation as outpatient hospitalist called [phone] and scheduled 9:30 AM appointment on February 04 on the 2nd floor at [address], [place] [address] Shah Hypokalemia, Hypomagnesemia -Admitted with potassium of 2.7, due to GI loss, had multiple episodes of diarrhea, loose bowel movements -potassium supplements were given on this admission and serum potassium has normalized -serum magnesium is 1.6 on 01/23/2020, give oral and IV supplements, check serum phosphorous levels Right Breast Mass, New Diagnosis per Dr. Veliz's notes: "CT abdomen pelvis with IV contrast shows possible new diagnosis of right-sided breast cancer, as documented on previous note Patient will need outpatient follow-up established for breast mammogram, breast biopsy Contacted [facility] cancer center, Discussed case briefly with breast cancer radiologist Dr. Aftab All the diagnosis tests for breast cancer, mammogram, breast mass biopsy needs to be done as outpatient Breast cancer center coordinator Ethel fernandez Phone number #[phone] Given patient's [facility] center will contact patient and patient family to schedule outpatient follow-ups and diagnostic testing once patient is discharged from [facility]" Weakness -may benefit with physical therapy center placement after hospital stay DVT Prophylaxis -SCDs DNR/DNI Follows with Dr Gifford for routine care daughter Rosa. her contact is [phone] or [phone] Admission and Anticipated Discharge Date Admission Date: January 08, 2020 Subjective Patient seen and examined at bedside. She had the DIGNISHIELD removed yesterday night and there is a new kit at the bedside. no abdomen pain. no vomiting. on nasal cannula oxygen. no chest pain. continues to have atrial fibrillation. no dizziness. no headache. she is awaiting gastrograffin enema study. On IV fluids while NPO Review of Systems Review of Systems: All systems reviewed & are unremarkable except as noted in Subjective Physical Exam Constitutional: + obese and comfortable Eyes: PERRL, conjunctivae normal, anicteric sclerae ENMT: external ear and nose normal, oropharynx normal Neck: trachea midline, no thyromegaly normal visual inspection Respiratory: normal respiratory effort, lungs clear to auscultation Cardiovascular: Rate/Rhythm: + irregularly irregular Gastrointestinal (Abdomen): normal bowel sounds, soft, nontender, no hepatosplenomegaly Musculoskeletal: Head/Neck/Chest: normocephalic and head atraumatic Neurologic: PERRL, EOMI, accommodation nl, no face palsy, no dysarthria CN's II-XI intact bilaterally Psychiatric: A+Ox3, euthymic affect Genitourinary: + bladder abnormality (duran) Results & Data Results & Data ([facility]) Vital Signs (Past 12 Hours) Vital Signs Temp Pulse Pulse Resp BP Pulse Ox 01/23/20 08:24 36.9 C 111 H 18 132/86 95 01/23/20 03:58 36.8 C 17 L 101 H 19 104/68 95
[2020-01-23] MEDS: MAGNESIUM SULFATE / D5W 1 GM/100 ML BAG IV SCH ×2 (11:23→13:53)
[2020-01-23] MEDS: MAGNESIUM OXIDE 400 MG TAB PO SCH (11:24)
--- NOTE | 2020-01-23 14:21 | Gastroenterology Progress Note ---
Date of Service January 23, 2020 Assessment & Plan (1) Diarrhea: Diarrhea secondary to stricture from prior radiation. Discussed with primary hospitalist and radiology - probably MRI would be better than (gastrografin) barium enema so will change to MRI. Present on Admission?: Yes Admission and Anticipated Discharge Date Admission Date: January 08, 2020 Supervising Physician Co-Signing Physician Notes Attg add: I interviewed and examined pt, reviewed chart and labs. Pt without BM's today. Awaiting pelvic MRI. Subjective 79 female, hx ofHTN, HLD, CKD III, uterine Ca S/P surgery and radiation in 2017, depression who presented to [facility] on 01/07 for weakness and has been treated for hypokalemia, hypomagnesium, UTI and A-fib. GI following for chronic non bloody frequent, small to moderate volume diarrhea. Colonoscopy yesterday with significant stricture at 20 - 25 cm from the anus. No BMs since colonoscopy. Review of Systems Review of Systems: ROS: Gen: Denies weakness, fevers, weight loss Eyes: No eye redness, or pain, no recent vision changes Resp: No SOB, no cough Cardio: No palpitations/irregular beats, no chest pain GI: See HPI, otherwise (-) : Denies pain on urination Skin: No jaundice, itching or new rashes Physical Exam Constitutional: WD/WN, vitals as above + obese Eyes: PERRL, conjunctivae normal, anicteric sclerae ENMT: external ear and nose normal, oropharynx normal Neck: trachea midline, no thyromegaly Respiratory: normal respiratory effort, lungs clear to auscultation Cardiovascular: RRR, no murmur, no edema Gastrointestinal (Abdomen): Percussion/Palpation: abdomen soft; abdomen nontender Skin: no rashes, warm and dry Neurologic: PERRL, EOMI, accommodation nl, no face palsy, no dysarthria Psychiatric: A+Ox3, euthymic affect Insight: + limited insight Lymphatic: no cervical or axillary lymphadenopathy Results & Data ([facility]) Vital Signs (Past 12 Hours) Vital Signs Temp Pulse Pulse Resp BP Pulse Ox 01/23/20 11:23 36.9 C 99 H 16 135/80 97 01/23/20 08:24 36.9 C 111 H 18 132/86 95 01/23/20 03:58 36.8 C 17 L 101 H 19 104/68 95 Laboratory Results WBC 8.7, Hb 10.5, Hct 32.5, Platelets 167, Na 144, K 3.7, BUN 12, Cr 1.06, glucose 98. Diagnostic Findings Colonoscopy by Dr. Beasley on 01/21 for diarrhea with rectosigmoid stricture, unable to traverse. CT with IV 01/08/20: 1. Enhancing irregular mass within the superior lateral quadrant of the right breast abuts the chest wall measuring up to 2.7 cm. Additionally, there are a few enhancing subcentimeter enhancing foci inferiorly and laterally to the dominant mass. Findings are suggestive of multifocal malignancy. Correlation with mammography is needed. 2. Mild/moderate left-sided hydroureteronephrosis with narrowing of the distal left ureter adjacent to surgical clips within the left hemipelvis. No obstructing mass or calculus identified. 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 Urology consultation recommended. 3. Small pleural effusions with dependent bibasilar atelectasis. 4. 1.5 cm splenic artery aneurysm. 5. No bowel obstruction or bowel wall thickening. Normal appendix. 6. Colonic diverticulosis. :
[2020-01-23] MEDS ORDERED: WARFARIN SOD 2.5 MG TAB PO STA (16:31)
[2020-01-23] MEDS ORDERED: FUROSEMIDE 40 MG in SYRINGE 0 ML IV ONE (16:45)
[2020-01-23] MEDS ORDERED: LORazepam 0.5 MG/1 ML VIAL IV ONE (20:00)
[2020-01-23] MEDS ORDERED: GADOBUTROL 65ML VIAL IV ONE (21:26)
[2020-01-23] MEDS ORDERED: OXYCODONE/ACETAMINOPHEN 5mg/325mg TAB PO STA (22:04)
[2020-01-23] MEDS ORDERED: TRAZODONE HCL 50 MG TAB PO PRN (22:26)
[2020-01-24 07:46] LABS: Basophils # (auto) 0.01 K/uL (0-0.2); Basophils % (auto) 0.2 %; Eosinophils # (auto) 0.15 K/uL (0-0.5); Eosinophils % (auto) 2.5 %; Hematocrit (blood only) 33.1 % (37-47); Hemoglobin 10.2 g/dL (12.0-16.0); Immature Granulocytes # (auto) 0.02 K/uL (0.00-0.02); Immature Granulocytes % (auto) 0.3 %; Lymphocytes # (auto) 0.73 K/uL (1.2-3.4); Lymphocytes % (auto) 12.1 %; Mean Corpuscular Hemoglobin 28.8 pg (25-34); Mean Corpuscular Hgb Conc 30.8 g/dL (32-36); Mean Corpuscular Volume 93.5 fL (80-100); Mean Platelet Volume 9.3 fL (7.4-10.4); Monocytes # (auto) 0.63 K/uL (0.11-0.59); Monocytes % (auto) 10.4 %; Neutrophils % (auto) 74.5 %; Platelet Count 233 K/uL (130-400); RDW Coefficient of Variation 15.6 % (11.5-14.5); RDW Standard Deviation 53.5 fL (36.4-46.3); Red Blood Count 3.54 M/uL (4.2-5.4); White Blood Count 6.04 K/uL (4.8-10.8)
[2020-01-24 07:57] LABS: INR 1.2 (0.9-1.1); Prothrombin Time 12.4 Seconds (9.0-12.0)
[2020-01-24] MEDS: MAGNESIUM OXIDE 400 MG TAB PO SCH (08:15)
[2020-01-24] MEDS: METOPROLOL SUCC 50MG EXT REL TAB PO SCH (08:15)
[2020-01-24] MEDS: ASCORBIC ACID 500 MG TAB PO SCH (08:15)
[2020-01-24] MEDS: ENALAPRIL MALEATE 10 MG TAB PO SCH (08:15)
[2020-01-24] MEDS: LACTOBACILLUS ACIDOPHILUS (FLORANEX) TAB PO SCH ×2 (08:16→12:36)
[2020-01-24] MEDS: AMIODARONE 200 MG TAB PO SCH (08:16)
[2020-01-24] MEDS: SERTRALINE HCL 50 MG TABLET PO SCH (08:16)
[2020-01-24] MEDS: MICONAZOLE NITRATE POWDER 43 GM EXT SCH ×2 (08:17→14:36)
[2020-01-24 08:22] LABS: Albumin Level 2.5 gm/dl (3.4-5.0); BUN Creatinine Ratio 10.4 (10-20); Calcium 8.9 mg/dl (8.5-10.1); Creatinine Clr Calc Pharmacy 45.9 ml/min; Est GFR (African American) 52.2; Est GFR (Non-African American) 45.1; Magnesium 1.9 mg/dl (1.8-2.4); Potassium 3.4 mmol/L (3.5-5.1)
[2020-01-24 08:24] LABS: Albumin Globulin Ratio 0.6 (0.9-2); Bilirubin,Total 0.4 mg/dl (0.2-1); Globulin 4.4 gm/dl (2.5-4.0); Phosphorus 3.2 mg/dl (2.5-4.9); Total Protein 6.9 gm/dl (6.4-8.2)
--- NOTE | 2020-01-24 08:43 | Magnetic Resonance Report ---
MRI OF THE PELVIS COMBO CLINICAL HISTORY: Colonic stricture. COMPARISON STUDY: Pelvic CT dated 01/13/2020. TECHNIQUE: MRI of the pelvis is performed utilizing various T1 and T2-weighted sequences in the axial , sagittal, and coronal planes. Contrast-enhanced sequences were acquired following the IV administra tion of 10 cc of Gadavist. FINDINGS: The bladder is partially decompressed around a Dias catheter. The uterus is surgically absent. No ad nexal lesion is seen. No free fluid is seen in the pelvis. There is nonspecific presacral edema. Ther e is no pelvic sidewall or inguinal adenopathy. The iliac vessels are patent. The visualized loops of small bowel and colon are normal in caliber. The left colon is decompressed. Mild mucosal thickening and hyperemia is suggested involving the rectum. There is irregular tethering /fibrosis seen involving the proximal sigmoid colon in the left hemipelvis. This is best seen on the high-resolution axial postcontrast image #13 of 25. No obvious mass lesion is identified and there ar e surgical clips in this region. The screws involve the left ureter which is dilated upstream. There are scattered diverticula of the sigmoid colon without clear evidence of acute diverticulitis. The bony pelvis appears intact. No destructive bony lesion is seen. Degenerative change is noted invo lving the left sacroiliac joint. The regional musculature is atrophic and symmetric. IMPRESSION: 1. The left colon is decompressed and the presence of stricture is not well evaluated. 2. There is mild diverticulosis of the sigmoid colon without evidence of acute diverticulitis. 3. There is tethering/fibrosis identified involving the proximal sigmoid colon and the left hemipelvi s with surrounding surgical clips. This may be related to previous surgery or possibly chronic divert icular disease. No obvious mass lesion is seen but this is not well evaluated. Correlation with endos copy is recommended. 4. The region of tethering involves the left ureter with upstream hydroureter. 5. The rectal mucosa appears mildly thickened and hyperemic. Correlate clinically for evidence of a m ild proctitis. Dictated: 01/24/2020 8:10 AM Transcribed: 01/24/2020 8:32 AM Roberta [id number] TANA_Sherita Electronically signed by: Miguel A Vazquez M.D. 01/24/2020 8:42 AM
[2020-01-24] MEDS ORDERED: POTASSIUM ACETATE 10 MEQ in 0.9 % SODIUM CHLORIDE 100 ML IV ONE (08:46)
[2020-01-24] MEDS ORDERED: MAGNESIUM SULFATE / D5W 1 GM/100 ML BAG IV ONE (08:46)
[2020-01-24] MEDS ORDERED: POTASSIUM CHLORIDE 20 MEQ/15 ML UDC PO SCH (09:00)
[2020-01-24] MEDS: POLYETHYLENE (MIRALAX) 17 GM PACK PO SCH ×2 (09:05→09:38)
--- NOTE | 2020-01-24 10:24 | XRay Report ---
XR chest 1V portable CLINICAL HISTORY: follow lung infiltrates or atelectasis COMPARISON STUDY: 01/22/2020 FINDINGS: The heart remains enlarged. There is resolving congestive failure/fluid overload. There are resolving basilar opacities. Trace pleural effusions suspected. There is no lobar consolidation[ IMPRESSION: 1. Cardiomegaly and resolving congestive failure 2. Resolving basilar opacities ACT 112: Negative or not required by law. Electronically signed by: Brijesh Madrid M.D. 01/24/2020 10:23 AM
--- NOTE | 2020-01-24 10:26 | Gastroenterology Progress Note ---
Date of Service January 24, 2020 Assessment & Plan (1) Diarrhea: Diarrhea secondary to stricture from prior radiation. MRI suggests scar tissue in proximal sigmoid also tethers ureter. OP Colorectal surgery referral arranged (by Dr. Moser). Needs Miralax daily to keep stool very soft/liquidy to allow to pass the stricture. Please give even though she has diarrhea. Diet should be low residue (low fiber) and she should drink plenty of liquids. GI will sign off. No GI contraindication to discharge. Present on Admission?: Yes Admission and Anticipated Discharge Date Admission Date: January 08, 2020 Supervising Physician Co-Signing Physician Notes Attg add: I interviewed and examined pt, reviewed chart and labs. Pt without new complaint. Pelvic MRI also shows sigmoid stricture, without mass. Plan as outlined above. Subjective 79 female, hx ofHTN, HLD, CKD III, uterine Ca S/P surgery and radiation in 2017, depression who presented to [facility] on 01/07 for weakness and has been treated for hypokalemia, hypomagnesium, e-coli UTI and A-fib. Imaging suggestive of new breast cancer. GI following for chronic non bloody frequent, small to moderate volume diarrhea. Stool culture and C-diff both (-). Colonoscopy yesterday with significant stricture at 20 - 25 cm from the anus. No BMs since colonoscopy. Review of Systems Review of Systems: ROS: Gen: + weakness(improving slowly), no fevers, noweight loss Eyes: No eye redness, or pain, no recent vision changes Resp: No SOB, no cough Cardio: No palpitations/irregular beats, no chest pain GI: See HPI, otherwise (-) : Denies pain on urination Skin: No jaundice, itching or new rashes Physical Exam Constitutional: WD/WN, vitals as above + obese Eyes: PERRL, conjunctivae normal, anicteric sclerae ENMT: external ear and nose normal, oropharynx normal Neck: trachea midline, no thyromegaly Respiratory: normal respiratory effort, lungs clear to auscultation Cardiovascular: RRR, no murmur, no edema Gastrointestinal (Abdomen): Percussion/Palpation: abdomen soft; abdomen nontender Skin: no rashes, warm and dry Neurologic: PERRL, EOMI, accommodation nl, no face palsy, no dysarthria Psychiatric: A+Ox3, euthymic affect Insight: + limited insight Lymphatic: no cervical or axillary lymphadenopathy Results & Data ([facility]) Vital Signs (Past 12 Hours) Vital Signs Temp Pulse Pulse Resp BP Pulse Ox 01/24/20 07:07 36.6 C 107 H 20 126/84 92 01/24/20 04:56 36.9 C 94 H 20 127/90 92 01/23/20 23:39 36.7 C 100 H 20 93/61 L 93 01/23/20 22:50 99 H Laboratory Results WBC 6, Hb 10, Hct 33, Plt 233, Na 141, K 3.4, BUN12, Cr 1.14. Diagnostic Findings MRI pelvis: 1. The left colon is decompressed and the presence of stricture is not well evaluated. 2. There is mild diverticulosis of the sigmoid colon without evidence of acute diverticulitis. 3. There is tethering/fibrosis identified involving the proximal sigmoid colon and the left hemipelvis with surrounding surgical clips. This may be related to previous surgery or possibly chronic diverticular disease. No obvious mass lesion is seen but this is not well evaluated. Correlation with endoscopy is recommended. 4. The region of tethering involves the left ureter with upstream hydroureter. 5. The rectal mucosa appears mildly thickened and hyperemic. Correlate clinically for evidence of a mild proctitis.
--- NOTE | 2020-01-24 12:04 | Hospitalist Progress Note ---
Date of Service January 24, 2020 Assessment & Plan (1) Atrial fibrillation: Paroxysmal Atrial fibrillation with Rapid Ventricular Response -new diagnosis during this hospital admission of atrial fibrillation -Echocardiogram : Shows no wall motion abnormality, ejection fraction 55-60% mildly dilated right ventricle with reduced right ventricular systolic failure suggestive of right heart failure -initially with marketing underwriter consult who started IV Cardizem and amiodarone; then IV Cardizem discontinued and patient transitioned to oral amiodarone and metoprolol -Currently on amiodarone 200 mg p.o. daily, and metoprolol succinate 100 mg p.o. twice daily -initially was on heparin IV bridged to coumadin but because of supratherapeutic INR of 4.9 on 01/21/2020 and plans for colonoscopy, patient was given Vitamin K on 01/21/2020. INR is 2.1 on 01/22/2020. -INR is 1.3 on 01/23/2020, coumadin 2.5 mg daily resumed on 01/23/2020 Acute diastolic CHF in the setting of new onset A fib -initially was given IV Lasix -01/24/2020 CXR: The heart remains enlarged. There is resolving congestive failure/fluid overload. There are resolving basilar opacities. Trace pleural effusions suspected. There is no lobar consolidation -discharge on Lasix 20 mg oral every other day for a 30 day trial as outpatient Urinary tract infection Recurrent, Likely related to Urinary Retention, Incontinence -Patient had recurrent urine tract infection at least 4 episodes in the last 6 months -WBC: 12, UA: 3+ leuk est, >30 WBC, 5-10 RBC, 10-20 epithel, 3+bacteria Urine culture: E. coli, sensitive to Rocephin, ciprofloxacin given Ceftriaxone--> transitioned to Cephalexin (completed 10 days of total antibiotic therapy) Urinary Retention, Incontinence Left Ureteral Stenosis History of pelvic radiation treatment for endometrial carcinoma, chronic urinary incontinence Renal ultrasound: Kidneys demonstrate cortical atrophy. No hydronephrosis is seen on right/there is mild to moderate left hydronephrosis/bladder is decompressed around a Duran catheter CT abdomen pelvis: Mild/moderate left-sided hydroureteronephrosis with narrowing of the distal left ureter adjacent to surgical clips within the left hemipelvis. No obstructing m ass or calculus identified. 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 -- Urologist re-consulted Repeat renal ultrasound: 1. Mild left renal hydroureteronephrosis. 2. This is considered unchanged from the prior study. 3. Mild bilateral cortical scarring also unchanged. -Maintain Duran catheter per urology, until follow-up with the urologist as an outpatient CKD (chronic kidney disease), stage III HTN (hypertension) -on LUC inhibitor 10 mg daily -diuretics as above Recto sigmoid stricture post-obstructive diarrhea -History of radiation for uterine cancer CT abdomen: 1. Enhancing irregular mass within the superior lateral quadrant of the right breast abuts the chest wall measuring up to 2.7 cm. Additionally, there are a few enhancing subcentimeter enhancing foci inferiorly and laterally to the dominant mass. Findings are suggestive of multifocal malignancy. Correlation with mammography is needed. 2. Mild/moderate left-sided hydroureteronephrosis with narrowing of the distal left ureter adjacent to surgical clips within the left hemipelvis. No obstructing mass or calculus identified. 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 Urology consultation recommended. 3. Small pleural effusions with dependent bibasilar atelectasis. 4. 1.5 cm splenic artery aneurysm. 5. No bowel obstruction or bowel wall thickening. Normal appendix. 6. Colonic diverticulosis. C diff: negative -patient had protracted diarrhea and loose bowel movements, on Lomotil -Recto sigmoid stricture as per gastroenterology impression in regards to the 01/22/2020 colonoscopy and that this is likely cause of post-obstructive diarrhea. gastrografin enema ordered for 01/23/2020 -general surgery evaluated and advising colo-rectal surgery evaluation as outpatient hospitalist called [phone] and scheduled 9:30 AM appointment on February 04 on the 2nd floor at [address], [place] [address] Shah -further evaluation of Recto sigmoid stricture with Pelvic MRI on 01/24/2020 1. The left colon is decompressed and the presence of stricture is not well evaluated. 2. There is mild diverticulosis of the sigmoid colon without evidence of acute diverticulitis. 3. There is tethering/fibrosis identified involving the proximal sigmoid colon and the left hemipelvis with surrounding surgical clips. This may be related to previous surgery or possibly chronic diverticular disease. No obvious mass lesion is seen but this is not well evaluated. Correlation with endoscopy is recommended. 4. The region of tethering involves the left ureter with upstream hydroureter. 5. The rectal mucosa appears mildly thickened and hyperemic. -as per gastroenterology "Needs Miralax daily to keep stool very soft/liquidy to allow to pass the stricture. Please give even though she has diarrhea. Diet should be low residue (low fiber) and she should drink plenty of liquids." Hypokalemia, Hypomagnesemia -Admitted with potassium of 2.7, due to GI loss, had multiple episodes of diarrhea, loose bowel movements -potassium supplements were given on this admission and serum potassium has normalized -serum magnesium is 1.6 on 01/23/2020, give oral and IV supplements, check serum phosphorous levels. serum potassium 3.4 and serum magnesium 1.9 on 01/24/2020 and additional supplements given Right Breast Mass, New Diagnosis per Dr. Veliz's notes: "CT abdomen pelvis with IV contrast shows possible new diagnosis of right-sided breast cancer, as documented on previous note Patient will need outpatient follow-up established for breast mammogram, breast biopsy Contacted [facility] breast cancer center, Discussed case briefly with breast cancer radiologist Dr. Ugalde All the diagnosis tests for breast cancer, mammogram, breast mass biopsy needs to be done as outpatient Breast cancer center coordinator Ethel fernandez Phone number #[phone] [facility] will contact patient and patient family to schedule outpatient follow-ups and diagnostic testing once patient is discharged from [facility]" Weakness -may benefit with physical therapy center placement after hospital stay DNR/DNI daughter Rosa. her contact is [phone] or [phone] discharge to [facility] for physical rehabilitation (keep duran until a follow up with urology clinic) discharge medications sent electronically to patient's preferred pharmacy of [facility] [address], [place] including daily magnesium and potassium tablets for 10 more days. Patient will need at least once weekly labs of basic metabolic panel to monitor electrolytes with the diarrhea and also INR levels because of being on warfarin for the atrial fibrillation (INR is 1.2 on 01/24/2020 and the goal INR is 2 to 3 ). discharge on Lasix 20 mg oral every other day for a 30 day trial as outpatient. patient should have potassium and magnesium supplements renewed as needed upcoming appointments MRI Pelvis imaging to be uploaded to a CD and given to patient on discharge for her follow up to surgeon Dr. Shah upcoming appointments scheduled 9:30 AM appointment on February 04 on the 2nd floor at [address], [place] [address] Shah (scheduling phone number is [phone], the patient scheduler advised that patient arrive to clinic prior to 9:30 AM) 02/06/2020 12:00 PM Provider Jessika Gifford MD Department Internal [facility] 02/13/2020 3:00 PM Provider Eric Tucker PA-C Department Cardiology [facility] 02/25/2020 3:20 PM Provider Jessika Gifford MD Department [facility] an appointment with [facility] U[facility] [address] [place] [address], [place] [address], call to affirm an appointment Admission and Anticipated Discharge Date Admission Date: January 08, 2020 Subjective Patient reported some diarrhea. Gastroenterology advises Miralax. no abdomen pain. no chest pain. acute dyspnea. CXR on 01/24/2020 is improved. no chest pain. continues to have atrial fibrillation but heart rates in the low 100s or below no dizziness. no headache Review of Systems Review of Systems: All systems reviewed & are unremarkable except as noted in Subjective Physical Exam Constitutional: + obese and comfortable Eyes: PERRL, conjunctivae normal, anicteric sclerae ENMT: external ear and nose normal, oropharynx normal Neck: trachea midline, no thyromegaly normal visual inspection Respiratory: normal respiratory effort, lungs clear to auscultation Cardiovascular: Rate/Rhythm: + irregularly irregular Gastrointestinal (Abdomen): normal bowel sounds, soft, nontender, no hepatosplenomegaly Musculoskeletal: Head/Neck/Chest: normocephalic and head atraumatic Neurologic: PERRL, EOMI, accommodation nl, no face palsy, no dysarthria CN's II-XI intact bilaterally Psychiatric: A+Ox3, euthymic affect Genitourinary: + bladder abnormality (duran) Results & Data Results & Data ([facility]) Vital Signs (Past 12 Hours) Vital Signs Temp Pulse Resp BP BP Pulse Ox 08/07/20 11:14 36.7 C 110 H 19 120/76 93 01/24/20 07:07 36.6 C 107 H 20 126/84 92 01/24/20 04:56 36.9 C 94 H 20 127/90 92
--- NOTE | 2020-01-24 12:19 | Discharge Summary ---
Date of Service January 24, 2020 Admission HPI Per Admitting Provider Pt is 79 y/o F with PMH HTN, HLD, CKD III, depression presented to ER with c/o weakness for approx 4 days. Pt states just finished PT and was doing much better until past 4 days. C/O generalized weakness, worse to bilateral legs. Uses walker to ambulate but having increased difficulty ambulating past several days. H/O fall one month ago but denies any recurrent falls since. Having some nausea without vomiting the past several days. States yesterday had 2 episodes of diarrhea and 2 episodes today. Denies hematochezia or melena. Decreased appetite and hasn't been eating much. Usually drinks four to five 16 ounce bottles of water daily, however today didn't have anything to drink. Feels cold. Denies fevers. Denies abdominal pain. 3 days ago had MILLER. Denies vision changes, paresthesias. Denies any known ill contacts. Has been staying at home but home PT was coming in. Denies diaphoresis, dizziness, syncope, vision changes, neck pain, CP, SOB, orthopnea, palpitations, cough, sore throat, choking, otalgia, rhinorrhea, abdominal pain, paresthesias, extremity edema, rashes, dysuria, hematuria, urinary frequency or urgency. Principal Diagnosis Paroxysmal Atrial fibrillation with Rapid Ventricular Response Acute diastolic CHF in the setting of new onset A fib Hypokalemia Hypomagnesemia Recto sigmoid stricture post-obstructive diarrhea Urinary tract infection CKD (chronic kidney disease), stage III HTN (hypertension) Right Breast Mass Discharge Exam Constitutional + obese and comfortable Eyes PERRL, conjunctivae normal, anicteric sclerae ENMT external ear and nose normal, oropharynx normal Neck trachea midline, no thyromegaly normal visual inspection Respiratory normal respiratory effort, lungs clear to auscultation Cardiovascular Rate/Rhythm: + irregularly irregular Gastrointestinal (Abdomen) normal bowel sounds, soft, nontender, no hepatosplenomegaly Musculoskeletal Head/Neck/Chest: normocephalic and head atraumatic Neurologic PERRL, EOMI, accommodation nl, no face palsy, no dysarthria CN's II-XI intact bilaterally Psychiatric A+Ox3, euthymic affect Genitourinary + bladder abnormality (duran) Discharge Data Allergies Allergy/AdvReac Type Severity Reaction Status Date / Time No Known Allergies Allergy Verified 01/08/20 17:02 Consultations 01/08/20 17:49 ED Decision to Admit Stat 01/08/20 18:20 Consult Case Management - Discharge Planning Routine 01/08/20 20:11 Consult Nephrology Routine 01/09/20 17:23 Consult Urology Routine 01/10/20 12:27 Consult Cardiology Routine 01/18/20 12:36 Consult Urology Routine 01/18/20 19:10 Consult Gastroenterology Routine 01/22/20 15:57 Consult General Surgery Routine 01/24/20 12:13 Burn CD for patient Stat Procedures Performed Operation Date: 01/22/20 16:45 Actual Procedures p Colonoscopy - Irphan E Gaslightwala Ordered Studies 01/08/20 15:29 CT head/brain wo con Stat 01/12/20 10:50 US renal/blad retro comp Routine 01/13/20 10:00 CT abd pelvis IV con only Routine CT chest w con Routine 01/20/20 14:00 US renal/blad retro comp Routine 01/23/20 14:08 MRI Pelvis [MR pelvis wo/w con] Routine Hospital Course (1) Atrial fibrillation: Paroxysmal Atrial fibrillation with Rapid Ventricular Response -new diagnosis during this hospital admission of atrial fibrillation -Echocardiogram : Shows no wall motion abnormality, ejection fraction 55-60% mildly dilated right ventricle with reduced right ventricular systolic failure suggestive of right heart failure -initially with television repairer consult who started IV Cardizem and amiodarone; then IV Cardizem discontinued and patient transitioned to oral amiodarone and metoprolol -Currently on amiodarone 200 mg p.o. daily, and metoprolol succinate 100 mg p.o. twice daily -initially was on heparin IV bridged to coumadin but because of supratherapeutic INR of 4.9 on 01/21/2020 and plans for colonoscopy, patient was given Vitamin K on 01/21/2020. INR is 2.1 on 01/22/2020. -INR is 1.3 on 01/23/2020, coumadin 2.5 mg daily resumed on 01/23/2020 Acute diastolic CHF in the setting of new onset A fib -initially was given IV Lasix -01/24/2020 CXR: The heart remains enlarged. There is resolving congestive failure/fluid overload. There are resolving basilar opacities. Trace pleural effusions suspected. There is no lobar consolidation -discharge on Lasix 20 mg oral every other day for a 30 day trial as outpatient Urinary tract infection Recurrent, Likely related to Urinary Retention, Incontinence -Patient had recurrent urine tract infection at least 4 episodes in the last 6 months -WBC: 12, UA: 3+ leuk est, >30 WBC, 5-10 RBC, 10-20 epithel, 3+bacteria Urine culture: E. coli, sensitive to Rocephin, ciprofloxacin given Ceftriaxone--> transitioned to Cephalexin (completed 10 days of total antibiotic therapy) Urinary Retention, Incontinence Left Ureteral Stenosis History of pelvic radiation treatment for endometrial carcinoma, chronic urinary incontinence Renal ultrasound: Kidneys demonstrate cortical atrophy. No hydronephrosis is seen on right/there is mild to moderate left hydronephrosis/bladder is decompressed around a Duran catheter CT abdomen pelvis: Mild/moderate left-sided hydroureteronephrosis with narrowing of the distal left ureter adjacent to surgical clips within the left hemipelvis. No obstructing mass or calculus identified. 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 -- Urologist re-consulted Repeat renal ultrasound: 1. Mild left renal hydroureteronephrosis. 2. This is considered unchanged from the prior study. 3. Mild bilateral cortical scarring also unchanged. -Maintain Duran catheter per urology, until follow-up with the urologist as an outpatient CKD (chronic kidney disease), stage III HTN (hypertension) -on LUC inhibitor 10 mg daily -diuretics as above Recto sigmoid stricture post-obstructive diarrhea -History of radiation for uterine cancer CT abdomen: 1. Enhancing irregular mass within the superior lateral quadrant of the right breast abuts the chest wall measuring up to 2.7 cm. Additionally, there are a few enhancing subcentimeter enhancing foci inferiorly and laterally to the dominant mass. Findings are suggestive of multifocal malignancy. Correlation with mammography is needed. 2. Mild/moderate left-sided hydroureteronephrosis with narrowing of the distal left ureter adjacent to surgical clips within the left hemipelvis. No obstructing mass or calculus identified. 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 Urology consultation recommended. 3. Small pleural effusions with dependent bibasilar atelectasis. 4. 1.5 cm splenic artery aneurysm. 5. No bowel obstruction or bowel wall thickening. Normal appendix. 6. Colonic diverticulosis. C diff: negative -patient had protracted diarrhea and loose bowel movements, on Lomotil -Recto sigmoid stricture as per gastroenterology impression in regards to the 01/22/2020 colonoscopy and that this is likely cause of post-obstructive diarrhea. gastrografin enema ordered for 01/23/2020 -general surgery evaluated and advising colo-rectal surgery evaluation as outpatient hospitalist called [phone] and scheduled 9:30 AM appointment on February 04 on the 2nd floor at [facility] [address], [place] [address] Shah -further evaluation of Recto sigmoid stricture with Pelvic MRI on 01/24/2020 1. The left colon is decompressed and the presence of stricture is not well evaluated. 2. There is mild diverticulosis of the sigmoid colon without evidence of acute diverticulitis. 3. There is tethering/fibrosis identified involving the proximal sigmoid colon and the left hemipelvis with surrounding surgical clips. This may be related to previous surgery or possibly chronic diverticular disease. No obvious mass lesion is seen but this is not well evaluated. Correlation with endoscopy is recommended. 4. The region of tethering involves the left ureter with upstream hydroureter. 5. The rectal mucosa appears mildly thickened and hyperemic. -as per gastroenterology "Needs Miralax daily to keep stool very soft/liquidy to allow to pass the stricture. Please give even though she has diarrhea. Diet should be low residue (low fiber) and she should drink plenty of liquids." Hypokalemia, Hypomagnesemia -Admitted with potassium of 2.7, due to GI loss, had multiple episodes of diarrhea, loose bowel movements -potassium supplements were given on this admission and serum potassium has normalized -serum magnesium is 1.6 on 01/23/2020, give oral and IV supplements, check serum phosphorous levels. serum potassium 3.4 and serum magnesium 1.9 on 01/24/2020 and additional supplements given Right Breast Mass, New Diagnosis per Dr. Veliz's notes: "CT abdomen pelvis with IV contrast shows possible new diagnosis of right-sided breast cancer, as documented on previous note Patient will need outpatient follow-up established for breast mammogram, breast biopsy Contacted [facility] cancer center, Discussed case briefly with breast cancer radiologist Dr. Ugalde All the diagnosis tests for breast cancer, mammogram, breast mass biopsy needs to be done as outpatient Breast cancer center coordinator Ethel fernandez Phone number #[phone] Given patient's [facility] will contact patient and patient family to schedule outpatient follow-ups and diagnostic testing once patient is discharged from [facility]" Weakness -may benefit with physical therapy center placement after hospital stay DNR/DNI daughter Rosa. her contact is [phone] or [phone] discharge to [facility] for physical rehabilitation (keep duran until a follow up with urology clinic) discharge medications sent electronically to patient's preferred pharmacy of [facility] [address] [place], [place] including daily magnesium and potassium tablets for 10 more days. Patient will need at least once weekly labs of basic metabolic panel to monitor electrolytes with the diarrhea and also INR levels because of being on warfarin for the atrial fibrillation (INR is 1.2 on 01/24/2020 and the goal INR is 2 to 3 ). discharge on Lasix 20 mg oral every other day for a 30 day trial as outpatient. patient should have potassium and magnesium supplements renewed as needed upcoming appointments MRI Pelvis imaging to be uploaded to a CD and given to patient on discharge for her follow up to surgeon Dr. Shah upcoming appointments scheduled 9:30 AM appointment on February 04 on the 2nd floor at [address] Shah (scheduling phone number is [phone], the river guide advised that patient arrive to clinic prior to 9:30 AM) 02/06/2020 12:00 PM Provider Jessika Gifford MD Department Internal Medicine [facility] 02/13/2020 3:00 PM Provider Eric Tucker PA-C Department Cardiology [facility] 02/25/2020 3:20 PM Provider Jessika Gifford MD Department Internal Medicine [facility] an appointment with [facility] Urology [address] [place] [address] , [place] [address], call to affirm an appointment Total Time Total Time Spent Total Time Spent (In Minutes): 40 minutes Total Time Includes: Examination of the Patient, Discharge Planning, Medication Reconciliation and Communication With Other Providers Discharge Plan Discharge Items Patient Disposition: Transfer Inpatient Rehab Fac Reason For Visit: WEAKNESS,LOW POTASSIUM Discharge Diagnosis: Paroxysmal Atrial fibrillation with Rapid Ventricular Response Acute diastolic CHF in the setting of new onset A fib Hypokalemia Hypomagnesemia Recto sigmoid stricture post-obstructive diarrhea Urinary tract infection CKD (chronic kidney disease), stage III HTN (hypertension) Right Breast Mass Condition on Discharge: Good Activity: Per Instructions section Non-emergency contact: Primary Care Provider, Surgeon and Ad Terminal Makeup Operator Call non-emergency contact if: you have any medication questions Follow-up/Referrals: Jessika Gifford MD [Primary Care Provider] - Diet: Low Fiber Addtl Attending Provider Instructions: discharge to [facility] for physical rehabilitation (keep duran until a follow up with urology clinic) discharge medications sent electronically to patient's preferred pharmacy of [facility] [address] [place], [place] including daily magnesium and potassium tablets for 10 more days. Patient will need at least once weekly labs of basic metabolic panel to monitor electrolytes with the diarrhea and also INR levels because of being on warfarin for the atrial fibrillation (INR is 1.2 on 01/24/2020 and the goal INR is 2 to 3 ). disc harge on Lasix 20 mg oral every other day for a 30 day trial as outpatient. patient should have potassium and magnesium supplements renewed as needed upcoming appointments MRI Pelvis imaging to be uploaded to a CD and given to patient on discharge for her follow up to surgeon Dr. Shah scheduled 9:30 AM appointment on February 04 on the 2nd [place] [address] Shah (scheduling phone number is [phone], the river guide advised that patient arrive to clinic prior to 9:30 AM) 02/06/2020 12:00 PM Provider Jessika Gifford MD Department Internal Medicine [facility] 02/13/2020 3:00 PM Provider Eric Tucker PA-C Department Cardiology [facility] 02/25/2020 3:20 PM Provider Jessika Gifford MD Department Internal Medicine [facility] an appointment with [facility] Urology [address] [place] [address] , [place] [address], call to affirm an appointment Addtl Barometers Calibrator Provider Instructions: as per gastroenterology "Needs Miralax daily to keep stool very soft/liquidy to allow to pass the stricture. Please give even though she has diarrhea. Diet should be low residue (low fiber) and she should drink plenty of liquids." Call your Primary Care doctor if any of the following symptoms or problems start or get worse: * Shortness of breath or difficulty breathing * Wake up at night short of breath * Chest pain * Cough * Swelling of your hands, feet, or legs * More fatigued or tired with your normal activity * Palpitations - sudden fast heart beats WEIGHT * Weigh yourself every morning after using the bathroom. * Use the same scale. * Wear the same amount of clothing. * Write your weight down on a chart. * Call your Primary Care doctor if you gain more than 2-3 pounds in 1-2 days. MEDICATIONS * Use this discharge instruction sheet for medication instructions. * Take your medications at the time your doctor ordered. * Do not skip a dose of your medicines. * If you miss a dose of medicine, take it as soon as possible, but DO NOT DOUBLE A DOSE. * Read your medicine information when you get home. * Know all of the side effects of your medicine. If in doubt, ask your pharmacist * Call your Primary Care doctor's office if you have any side effects. * Be sure all of your doctors know what medicine and herbs you take (including cold, flu, and herbal medicine). Take the following with you to your follow-up doctor appointments: * Weight Chart * Medication List * List of questions Do not drink excessive alcohol, beer or wine. Pending Studies at Discharge: No Stand-Alone Forms: My [facility] Skilled Items Patient informed of condition?: Yes DNR: Yes Discharge Level of Care: Acute rehab Communicable Disease: No Discharge Prognosis: Stable Lines: None Urinary Catheter: Yes Medications and DC Order Prescriptions: New acetaminophen 325 mg Tablet 325 mg PO Q6H PRN (Reason: pain (scale score 7-10)) 5 Days Qty: 20 RF: 0 polyethylene glycol 3350 [Miralax] 17 gram Powder In Packet 17 g PO DAILY 30 Days Qty: 30 RF: 0 amiodarone 200 mg Tablet 200 mg PO DAILY 30 Days Qty: 30 RF: 0 metoprolol succinate 50 mg Tablet Extended Release 24 Hr 100 mg PO BID 30 Days Qty: 120 RF: 0 warfarin [Jantoven] 2.5 mg Tablet 2.5 mg PO DAILY@1600 30 Days Qty: 30 RF: 0 magnesium oxide 400 mg (241.3 mg magnesium) Tablet 400 mg PO QAM 10 Days Qty: 10 RF: 0 potassium chloride 20 mEq tablet,ER particles/crystals 20 meq PO QAM 10 Days Qty: 10 RF: 0 furosemide [Lasix] 20 mg tablet 20 mg PO Q OTHER DAY 30 Days Qty: 15 RF: 0 Continued atorvastatin [Lipitor] 40 mg tablet 40 mg PO DAILY RF: 0 ascorbic acid (vitamin C) [Vitamin C] 1,000 mg Tablet 1 g PO DAILY RF: 0 sertraline [Zoloft] 100 mg tablet 150 mg PO DAILY RF: 0 trazodone 100 mg tablet 100 mg PO HS PRN (Reason: Insomnia) RF: 0 benazepril [Lotensin] 10 mg tablet 10 mg PO DAILY RF: 0 cholecalciferol (vitamin D3) [Vitamin D3] 25 mcg (1,000 unit) Tablet 25 mcg PO DAILY RF: 0 magnesium oxide 400 mg magnesium capsule 400 mg PO DAILY RF: 0 Discontinued metoprolol succinate [Toprol XL] 100 mg tablet extended release 24 hr 100 mg PO DAILY RF: 0 oxycodone-acetaminophen [Percocet] 5-325 mg tablet 1 tab PO Q6 PRN (Reason: Pain) RF: 0 hydrochlorothiazide 25 mg tablet 25 mg PO DAILY RF: 0 Discharge Orders: Discharge Order (Routine); Ordered 01/24/20 Ordered By: Darrell Bashir/Other Patient Handouts: What to Know When TakingWarfarin, Understanding Atrial Fibrillation Admission Data Admit Date/Time: 01/08/20 18:19 Attending Provider: Darrell Moser Admit Provider: Nisa Veliz Primary Care Provider: Jessika Gifford Other Providers: [facility] ; Darrell Moser ; Desirae Aiken ; Shimon Lane ; Edna Howell ; Yina Garcia ; Glen Bustos ; Alex Dixon ; Edwar Jacobo ; Jeff Todd I. ; Hiren Ugalde ; Kim Cobb ; Tami Dutta ; Esau Byrnes ; Iwona Silver ; Shavon Alexis ; Surya Celestin ; Tammy Burns ; Edwar Muñiz ; Denilson Hanna ; Caleb Tapia ; Surya Boateng ; Diaz Morales ; Eric Tucker ; Elvi Hampton ; Carol Chery ; Dayne Humphrey ; Nisa Veliz ; Nicole Walker ; Denny Maxwell Other Interventions: Discharge Summary Assessment (RN) Last Done: 01/22/20 15:30
[2020-01-24] MEDS ORDERED: WARFARIN SOD 2.5 MG TAB PO SCH (16:00)
== END 2020-01-24 16:26 | DRG 689 ==
LOC: ED 15:12 → 2W 18:19 → SUATTDRO 18:19 → 2W 19:32 → 2S 01-10 13:48